=== PATIENT | male | born 1960 | race Caucasian/White ===

== ENCOUNTER 2025-02-11 19:04 | Emergency (ER) | payer OTHER, SELFPAY ==
--- OUTSIDE RECORDS SUMMARY | 2025-01-04 13:00 | XMS_ITS | Encounter Summary ---
Author Organization [facility], and Affiliates Address [address] [place] [address] Care Team Providers Care Railroad Track Inspector Name Role Phone Leo Jama MD Primary Care Provider [phone] Reason for Visit * Reason Comments Thyroid Problem Patient is referred to ENT by Stevan Roberson MD for hyperparathyroidism, hypercalcemia, and osteopenia. Patient had imaging in /January 2025. * Consultation (Routine) - Closed Specialty Diagnoses / Procedures Referred By Farshad cervantes Referred To Contact ENT-Otolaryngology Diagnoses Hyperparathyroidism Hypercalcemia Osteopenia, unspecified location Stevan Roberson MD [address] [id number] Phone: tel: fax: Noelle Gutierrez MD [address] [place] [phone] Phone: tel: fax: Referral ID Status Reason Start Date Expiration Date V isits Requested Visits Authorized [id number] Closed Specialty Services Required 12/19/2024 06/20/2025 1 1 Encounter Details Date Type Department Care Team (Latest Contact Info) Description 01/04/2025 1:00 PM CDT Office Visit [facility] [address] [place] [phone] Noelle Gutierrez MD [address] [place] [id number] Primary hyperparathyroidism (Primary Dx); Hypercalcemia; Osteopenia, unspecified location; History of kidney stones Social History Tobacco Use Types Packs/Day Years Used Date Smoking Tobacco: Former Cigarettes 0 12/01/2022 - 02/19/1976 Passive Smoke Exposure: Current Smokeless Tobacco: Never Alcohol Use Standard Drinks/Week Comments Not Currently 1.7 (1 standard drink = 0.6 oz p ure alcohol) [facility] Utilities Answer Date Recorded In the past 12 months has e [employer], oil, or water [employer] threatened to shut off services in your home? No 03/01/2024 Social Connection and Isolat ion Panel [NHANES] Answer Date Recorded In a typical week, how many times do you talk on the phone with family, friends, or neighbors? More than three times a week 03/01/2024 How often do you get togethe r with friends or relatives? Once a week 03/01/2024 How often do you attend chur ch or episcopal services? Never 03/01/2024 Do you belong to any clubs o r organizations such as scientology groups, unions, fraternal or athletic groups, or school groups? No 03/01/2024 How often do you attend meet ings of the clubs or organizations you belong to? Never 03/01/2024 Are you , , di vorced, , never , or living with a partner? 03/01/2024 Overall Financial Resource Strain (CARDIA) Answe r Date Recorded How hard is it for you to pa y for the very basics like food, housing, medical care, and heating? Somewhat hard 03/01/2024 [facility] [employer] of Occupat ional Health - Occupational Stress Questionnaire Answer Date Recorded Do you feel stress - tense, restless, nervous, or anxious, or unable to sleep at night because your mind is troubled all the time - these days? Not at all 03/01/2024 Exercise Vital Sign Answer Date Recorde d On average, how many days pe r week do you engage in moderate to strenuous exercise (like a brisk walk)? 3 days 03/01/2024 On average, how many minutes do you engage in exercise at this level? 30 min 03/01/2024 Hunger Vital Sign Answer Date Recorded Within the past 12 months, y ou worried that your food would run out before you got the money to buy more. Never true 03/01/20 24 Within the past 12 months, t he food you bought just didn't last and you didn't have money to get more. Never true 03/01/2024 PRAPARE - Transportation Answer Date Re corded In the past 12 months, has l ack of transportation kept you from medical appointments or from getting medications? No 02/05 In the past 12 months, has l ack of transportation kept you from meetings, work, or from getting things needed for daily living? No 03/01/2024 Housing Stability Vital Sign Answer Nick e Recorded In the last 12 months, was t here a time when you were not able to pay the mortgage or rent on time? No 03/01/2024 Number of Times Moved in the Last Year Not on fi le 03/01/2024 At any time in the past 12 m [facility], were you homeless or living in a penitentiary (including now)? No 03/01/2024 Alcohol Use Answer Date Recorded Q1: How often do you have a drink containing alc ohol? 2-4 times a month 03/01/2024 Q2: How many drinks containi ng alcohol do you have on a typical day when you are drinking? 1 or 2 03/01/2024 Q3: How often do you have si x or more drinks on one occasion? 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 Surgery is outpatient, meaning you come and go home the same day. Surgery typically takes 1.5 hours. Sometimes, it can be longer due to lab draw wait time. [place] Ramsey is scheduled for Parathyroid surgery on January 30 at [facility] Our office will call you the day before surgery to let you know what time to arrive the following day for your procedure. You may also call our office at [phone] to obtain this information if you have not heard from us by 11:30am. Please register at: [facility], [facility] [place], Main Entrance. Cannon Pinion Adjuster serviceis reserved for those patients and/or visitors with physical disabilities. If you and your visitor do not have any physical disabilities, please park your car in the [facility] parking lot and check in at our Lobby Flower Grader. Special instructions: Preparing for Your Surgery: 7 days before Surgery Stop any ibuprofen (Motrin??, Advil??), naproxen (Aleve??), or anti-inflammatory medications you are taking. It is OK to take acetaminophen (Tylenol??) Stop any herbal, vitamin, or supplement products you are taking. Continue all other prescription medications unless directed otherwise. Arrange for someone to drive you home. If you go home the day of surgery, you must have someone remain with you for 24 hours. It is important that your ride is a family member or friend. We are not able to discharge you with public transportation, unless it is approved medical transport. roller shop supervisor your special cleansing soap chlorhexidine gluconate (Hibiclens??) from your surgeon's office, the Surgery Prepare Team, a [facility], or a local pharmacy. You will not be able to wear any jewelry (including wedding rings) the day of surgery. Rings will be cut off if unable to be removed. You may need to visit a jeweler prior to surgery. 2 days before surgery Stop shaving around the surgical area. Facial shaving is allowed unless you are having head or necksurgery. Contact your surgeon???s office if you become ill with an infection, fever, chest congestion, or have a cut, scab, scratch or bug bite near your surgical area. Wash a set of sheets and pajamas for the evening before surgery. Evening before surgery Cleanse with the special chlorhexidine gluconate (Hibiclens??) soap, given to you. Follow the: Preparing your Skin Before Surgery instruction sheet. Wear clean pajamas and sleep in clean sheets after your shower. FASTING INSTRUCTIONS You may have solid foods until 8 hours before surgery. You may have clear liquids until 3 hours before surgery. Clear liquids include water, soda, Jell-O, popsicles, broth, black coffee or tea (No cream or milk), clear sodas or sports drinks, and juices without pulp (apple, cranberry & grape OK). Morning of surgery Cleanse with the special chlorhexidine gluconate (Hibiclens??) soap, given to you. Follow the: Preparing your Skin Before Surgery instruction sheet. Wear comfortable clothing. If you have an implantable device, please bring any remotes, or equipment to adjust your device. Medications: The Surgery Prepare Team will address your medications with you. They will also informyou of any preoperative labwork or diagnostic testing (EKG) needed prior to surgery, and assist youwith setting that up. We recommend NO Alcohol 5 to 7 days before surgery. Alcohol consumption may increase the risk of bleeding. We will contact your insurance company prior to your surgery to obtain pre- certification/prior authorization. If you have questions about your benefits, please contact your insurance company directly. PREPARING YOUR SKIN BEFORE SURGERY USING CHLORHEXIDINE SOLUTION Preparing or ???prepping?? skin before surgery can reduce the risk of infection at the surgery site. A special soap is used called chlorhexidine gluconate. You will need two 4 oz. bottles of this soap for showering. NOTE: These instructions are based on two 4 oz. bottles. If you have one 8 oz. bottle, use 1/2 of the bottle for each shower. Please follow the steps below that outline the process: Do not shave or remove body hair two days prior to surgery. Facial shaving is permitted. If you arehaving head or neck surgery, please ask your doctor. A total of two showers should be performed prior to surgery. First shower, the night before surgery (use one 4 oz. bottle of soap). Second shower, the day of surgery before coming to the hospital (use one 4 oz. bottle of soap). Stop using the product if a skin reaction occurs (rash,excessive itching, hives, redness, etc.). Wash your whole body with antibacterial soap during a shower instead. Leave the soap on your skin for 1 minute. Rinse and repeat. Dry yourself with a clean towel. Showering instructions: 1. Wet your entire body, including hair, with warm water. 2. Wash your hair with your own shampoo and rinse. 3. Wash your face and genital/rectal area with your own soap and rinse. 4. Apply 1/2 of the bottle (2 oz.) of the chlorhexidine soap and lather your body starting from your jaw line down. Do not put the soap on the face (eyes, ears, nose, or mouth) or genital area. Wait 1 minute before rinsing. 5. Repeat step 4 using the other 1/2 of the bottle (2 oz.). 6. Dry hair and body with a clean towel. After the shower instructions: After your evening shower, sleep in clean, freshly washed pajamas and sheets. After your morning shower, dress in freshly washed, loose-fitting clothes. Do not wear jewelry. Do not apply any lotions, powders, deodorant, makeup, nail greenlandic, hair products, or perfumes/colognes. What To Expect After Parathyroidectomy Surgery The following general guidelines have been provided to review before your surgery. Please keep in mind that not each surgical experience will be the same for everyone. Plan for same day discharge, unless the surgery is extensive and takes a bit to locate the affectedparathyroid gland. If surgery is more extensive, you may possibly have a one night stay in the hospital with a small drain placed in your neck. The drain would be removed the next day, and then you would be discharged. INCISION & WOUND HEALING: Your surgeon will indicate if they want you to put any antibiotic ointment over the incision. Your incision may be raised at first but will flatten out and fade over time. Protect your incision from injury for one month following surgery. Consider using Mederma on the incision after two (2) weeks of healing. For best cosmetic result, protect the incision from the sun for one (1) year following surgery by using sunscreen SPF 30 or greater. BATHING: If you have a drain in, no showering until after the drain has been removed. If no drain was put in, you can shower 24 hours after surgery. PRESCRIBED MEDICATIONS: After discharge, you may be sent home on calcium supplements and medication for pain. You will also be prescribed narcotic pain medication for the first few days after surgery. After that, patients are able to transition to Tylenol/Ibuprofen. As a reminder, on-call ENT provider cannot refill prescription pain medications over the weekend. SYMTPOMS TO EXPECT AFTER SURGERY: Stiff/sore neck Headache (particularly right after surgery) Sore, scratchy throat Hoarseness. This can last for up to a week or sometimes longer. Fatigue RECOVERY RESTRICTIONS: While you are healing, avoid any strenuous activity. No lifting over 10 pounds, no strenuous activity, no biking, but you may walk and no bending until seen at the one-week post-op visit. Please ask your doctor at your one-week visit when he/she feels you may return back to work/daily activities. TIME OFF: 10 days unless otherwise specified by your surgeon. WHEN TO CALL OUR OFFICE: Temperature over 101 degrees If your incision becomes red, swollen, hot to the touch, or starts to drain You have any new rashes at the incision site Tingling or cramping in your hands, feet, lips or face. These could be a sign of low calcium. Please contact us immediately if this happens. If your incision opens/tears If you notice your incision/area around your incision is becoming rapidly swollen and/or is turninga blue/purple color An ENT physician is on-call 24 hours a day. If you have any questions or concerns at any point in your recovery, please call our clinic at [phone]. We are staffed Wednesday through Wednesday, 8:00am-4:30pm. documented in this encounter Progress Notes * Noelle Gutierrez MD - 01/04/2025 1:00 PM CDT Chief Complaint: Hypercalcemia, hyperparathyroidism Subjective: South Ramsey is a 64 year old male who is seen for consultation at the request of Stevan Roberson MD. South is a 64 year old male who I was asked to see for hyperparathyroidism and hypercalcemia. He is here today with his . He was initially noted to have high calcium in February 2024. Bone density screening completed in October 2024 revealed osteopenia. He has broken multiple bones from falls in the past. He has had three kidney stone in the past,years ago. He denies voice concerns, but his throat has been dry and a bit raspy. No significant voice discomfort. No family history of parathyroid disease or adenoma. No history of surgery on the neck. He has been more fatigued with brain fog thannormal. He has a history of atrial fibrillation and has been cardioverted 5 times. He is not currently in atrial fibrillation. No history of stroke or TIA, currently on Eliquis. He reports that he quit smoking about 48 years ago. His smoking use included cigarettes. He startedsmoking about 2 years ago. He has been exposed to tobacco smoke. He has never used smokeless tobacco. He reports that he does not currently use alcohol after a past usage of about 1.7 standard drinksof alcohol per week. He reports that he does not use drugs. The patient's ROS, PMH, PSH, family history, medications and allergies are reviewed and updated as appropriate. Objective: Exam: Patient is alert and oriented. Face is symmetric, nontender on palpation. Voice is good. Patient is in no acute distress. Extraocular muscles intact. Skin of face and neck is healthy. EARS: External ears and ear canals clear, tympanic membranes mobile without erythema. Hearing grossly normal. NOSE: Mild rightward septal deviation; turbinates nonhypertrophied. No rhinorrhea, crusting, bleeding or purulence. External nares without deformity. MOUTH: Good dentition; gums intact; no trismus. Moist mucosa.. Tongue and palate mobile and symmetric; uvula midline. NECK: Supple without masses; salivary glands and thyroid gland nonenlarged. No lymphadenopathy. No tenderness. Muscles within normal limits and good range of motion. RESPIRATORY: Symmetric chest rise. Breathing comfortably on room air without stridor. Data: Labs: 11/02/24 labs were as follows PTH- 71.6 Ionized calcium- 1.48 Serum calcium- 11.1 Radiology: CT 4D Neck-Parathyroid 12/12/24 was personally reviewed. IMPRESSION: 1. Solitary highly suspicious candidate nodule posterior to the left thyroid lobe measuring up to 10 mm. This is probably a parathyroid adenoma. US Thyroid 11/09/24 IMPRESSION: 1. Bilateral subcentimeter TR 3 and TR 4 nodules do not meet criteria for follow-up or biopsy. Audiogram: Not obtained. Consulting provider's notes are reviewed. Assessment & Plan: 1. Primary hyperparathyroidism 2. Hypercalcemia 3. Osteopenia, unspecified location 4. History of kidney stones Today I discussed with South and his that he has evidence of primary hyperparathyroidism withassociated symptoms as well as osteopenia likely secondary to a parathyroid adenoma. We discussed the option of consideration of surgery for removal of the adenomatous parathyroid gland. Based on his4D CT scan of the neck, this does appear to localize to the left side. We discussed all risks, benefits, and alternatives of minimally invasive parathyroidectomy with possible need for 4 gland exploration. We discussed the risks of scarring, bleeding, injury to the recurrent or superior laryngeal nerve causing voice issues, failure to resolve his hypercalcemia. We discussed that this would likelybe an outpatient surgery, may require overnight stay with a drain placement if 4 gland exploration is needed. We did discuss that he would need to be off his Eliquis perioperatively which does slightly increase his risk of stroke, but certainly remains low given he is not currently in atrial fibrill ation and has never had a stroke in the past. He wishes to pursue surgery, we will work to schedulethis in the near future. A copy of this note is forwarded to the consulting provider. Clinic note was made using [employer] dictation software. There may be inadvertent wording errors that may have escaped editing. If you have questions or need some clarification, please do not hesitate to call our clinic. Documenting and scribing by Jordyn Louis RN on behalf of Noelle Gutierrez MD. Reviewed and approved by Noelle Gutierrez MD. documented in this encounter Plan of Treatment Upcoming Encounters Date Type Department Care Team (Late st Contact Info) Description 03/01/2025 9:50 AM CDT Lab/Non-Imaging [facility] [address] [place] [id number] 03/02/2025 10:30 AM CDT Nurse Visit [facility] [place] [id number] 03/02/2025 11:00 AM CDT Office Visit [facility] [address] [place] [address] Leo Jama MD [address] [place] [address] 03/14/2025 9:10 AM CDT Lab/Non-Imaging [facility] [address] [place] [address] 03/21/2025 10:00 AM CDT Office Visit [facility] Endocrinology [address] [place] [id number] Stevan Roberson MD [address] [place] [address] Scheduled Orders Name Type Priority Associated Diagnoses Orde r Schedule EXPLORE PARATHYROID GLANDS Procedures Routine Primary hyperparathyroidism Hypercalcemia Expected: 01/04/2025, Expires: 07/07/2025 documented as of this encounter Goals Goal Patient Goal Type Associated Problems Recent Progress Patient-Stated? Author Blood Pressure < 140/90 Blood Pressure 124/66(2024 2:28 PM CDT) No Leo Jama MD hdl > 40 Result Component 54(03/01/2024 9:54 AM CDT) No Leo Jama MD documented as of this encounter Visit Diagnoses Diagnosis Primary hyperparathyroidism- Primary Hypercalcemia Osteopenia, unspecified location History of kidney stones Personal history of urinary calculi documented in this encounter Additional Health Concerns Assessment Noted Time PHQ-9 Depression Total Score: 0 03/22/20 11:01 AM CDT A fall risk assessment has been complete d for the patient 04/04/2024 7:08 AM CDT documented as of this encounter Care Teams Railroad Track Inspector Relationship Specialty Start Date End Date Leo Jama MD [address] [place] [address] PCP - General Internal Medicine 03/01/24 documented as of this encounter
--- OUTSIDE RECORDS SUMMARY | 2025-01-08 11:10 | XMS_ITS | Encounter Summary ---
Author Organization [facility] Address [address] [place] [address] Care Team Providers Care Furniture Dipper Name Role Phone Leo Jama MD Primary Care Provider [phone] Encounter Details Date Type Department Care Team (Late st Contact Info) Description 01/08/2025 11:10 AM CDT Lab/Non-Imagemigdio [facility] [address] [place] [address] Hyperparathyroidism; Hypercalcemia; Vitamin D deficiency Social History Tobacco Use Types Packs/Day Years Used Date Smoking Tobacco: Former Cigarettes 0 12/01/2022 - 02/19/1976 Passive Smoke Exposure: Current Smokeless Tobacco: Never Alcohol Use Standard Drinks/Week Comments Not Currently 1.7 (1 standard drink = 0.6 oz p ure alcohol) [facility] Utilities Answer Date Recorded In the past 12 months has [employer], gas, oil, or water [employer] threatened to shut off services in your [...] 03/01/2024 How often do you attend chur or congregation services? Never 03/01/2024 Do you belong to any clubs o r organizations such as protestant groups, unions, fraternal or athletic groups, or [...] medical care, and heating? Somewhat hard 03/01/2024 [facility] Occupational Stress Questionnaire Answer [...] any time in the past 12 m [facility], were you homeless or living in a snf (including now)? 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 Gender Identity Not on file Sexual Orientation Not on file documented as of this encounter Plan of Treatment Upcoming Encounters Date Type Department Care Team (Late st Contact Info) Description 03/01/2025 9:50 AM CDT Lab/Non-Imaging [facility] [address] [place] [address] 03/02/2025 10:30 AM CDT Nurse Visit [facility] [address] [place] [address] 03/02/2025 11:00 AM CDT Office Visit [facility] [address] [place] [address] Leo Jama MD [address] [address] 03/14/2025 9:10 AM CDT Lab/Non-Imaging [facility] [address] [place] [address] 03/21/2025 10:00 AM CDT Office Visit [facility] [address] [place] [phone] Stevan Roberson MD [address] [place] [address] [place] [phone] documented as of this encounter Goals Goal Patient Goal Type Associated Problems Recent Progress Patient-Stated? Author Blood Pressure < 140/90 Blood Pressure 124/66(2024 2:28 PM CDT) No Leo Jama MD hdl > 40 Result Component 54(03/01/2024 9:54 AM CDT) No Leo Jama MD documented as of this encounter Procedures Procedure Name Priority Date/Time Associated Diagnosis Comments VITAMIN D 25 HYDROXY D2/D3 Routine 01/08/2025 9:52 AM CDT Hyperparathyroidis m Hypercalcemia Vitamin D deficiency PANEL, COMPREHENSIVE METABOLIC Routine 01/08/2025 9:52 AM CDT Hyperparathyroidis m Hypercalcemia PTH INTACT Routine 01/08/2025 9:52 AM CDT Hyperparathyroidis m Hypercalcemia documented in this encounter Results * VITAMIN D 25 HYDROXY TOTAL (BELLIN ONLY) (01/08/2025 9:52 AM CDT) 25-HYDROXY D TOTAL 40.2 30.0 - 100.0 ng/ml 01/08/2025 3:46 PM CDT [facility] Blood Venipuncture / Unknown 01/08/2025 9:52 AM CDT 01/08/2025 9:52 AM CDT Narrative [facility] - 01/08/2025 3:46 PM CDT The Clinical Guidelines Subcommittee of the Endocrine Society Task Force established the guidelines below for recommended serum 25(OH) vitamin D levels Vitamin D Status: Deficient < 20 (ng/mL) Insufficient 20 to < 30(ng/mL) Sufficient 30 - 100(ng/mL) Upper Safety Limit >100(ng/mL) Samples should not be taken from patients receiving therapy with high biotin doses until at least 8 hours following the last biotin administration. High biotin levels in patient samples may falsely increase or decrease the measured value. us Stevan Roberson MD LAB BLOOD ORDERABLES Final Res ult [facility] [address] [address] [place] [address] * (ABNORMAL) PTH INTACT (01/08/2025 9:52 AM CDT) PTH INTACT 71.0(H) 15.0 - 65.0 pg/mL 01/08/2025 3:46 PM T [facility] Blood Venipuncture / Unknown 01/08/2025 9:52 AM CDT 01/08/2025 9:52 AM T [facility] - 01/08/2025 3:46 PM CDT Samples should not be taken from patients receiving therapy with high biotin doses until at least 8 hours following the last biotin administration. High biotin levels in patient samples may falsely increase or decrease the measured value. Patient heterophile antibodies may interfere with immunoassays, e.g. HAMA. us Stevan Roberson MD LAB BLOOD ORDERABLES Final Res ult [facility] [address] [address] * (ABNORMAL) PANEL, COMPREHENSIVE METABOLIC (01/08/2025 9:52 AM T) Pathologist [facility] GLUCOSE 164(H) 70 - 100 mg/dL 01/08/2025 10:58 AM T [facility] UREA NITROGEN 14 9 - 23 mg/dL 01/08/2025 10:58 AM [facility] CREATININE 1.09 0.73 - 1.18 mg/dL 01/08/2025 10:58 AM [facility] eGFR 76 >=60 mL/Min/1. 73 sqm 01/08/2025 10:58 AM [facility] Comment:Calculation based on the Chronic Kidney Disease Epidemiology Collaboration (CKD-EPI) equation refit without adjustment for race. SODIUM 140 136 - 145 mmol/L (mEq/L) 01/08/2025 10:58 AM T [facility] POTASSIUM 5.1 3.5 - 5.1 mmol/L (mEq/L) 01/08/2025 10:58 AM T [facility] CHLORIDE 113(H) 101 - 112 mmol/L (mEq/L) 01/08/2025 10:58 AM T [facility] TOTAL CO2 26 20 - 31 mmol/L (mEq/L) 01/08/2025 10:58 AM T [facility] CALCIUM 11.6(H) 8.9 - 10.7 mg/dL 01/08/2025 10:58 AM T [facility] Comment:Effective 10-09-24, p lease note reference range changes. TOTAL PROTEIN 6.7 5.7 - 8.2 g/dL 01/08/2025 10:58 AM T [facility] ALBUMIN 4.4 3.9 - 5.1 g/dL 01/08/2025 10:58 AM [facility] Comment:Effective 10-09-24, p lease note reference range changes. BILIRUBIN, TOTAL 0.6 0.2 - 1.1 mg/dL 01/08/2025 10:58 AM T [facility] Comment:Effective 10-09-24, p lease note reference range changes. SGOT/AST 36 <39 U/L 01/08/2025 10:58 AM T [facility] Comment:Effective 10-09-24, p lease note reference range changes. SGPT/ALT 61(H) 10 - 52 U/L 01/08/2025 10:58 AM T [facility] Comment:Effective 10-09-24, p lease note reference range changes. ALK PHOSPHATASE 77 43 - 131 U/L 01/08/2025 10:58 AM T [facility] Comment:Effective 10-09-24, p lease note reference range changes. Blood Venipuncture / Unknown 01/08/2025 9:52 AM CDT 01/08/2025 9:52 AM CDT Stevan Roberson MD LAB BLOOD ORDERABLES Final Res ult [facility] [address] [place] [address] documented in this encounter Visit Diagnoses Diagnosis Hyperparathyroidism Hyperparathyroidism, unspecified Hypercalcemia Vitamin D deficiency Unspecified vitamin D deficiency documented in this encounter Additional Health Concerns Assessment Noted Time PHQ-9 Depression Total Score: 0 03/22/20 11:01 AM CDT A fall risk assessment has been complete d for the patient 04/04/2024 7:08 AM CDT documented as of this encounter Care Teams Furniture Dipper Relationship Specialty Start Date End Date Leo Jama MD [address] [place] [address] PCP - General Internal Medicine 03/01/24 documented as of this encounter
--- OUTSIDE RECORDS SUMMARY | 2025-01-11 10:30 | XMS_ITS | Encounter Summary ---
Author Organization [facility], and Affiliates Address [address] [place] [address] Care Team Providers Care Bartender Helper Name Role Phone Leo Jama MD Primary Care Provider [phone] Reason for Visit * Reason Comments Follow Up Encounter Details Date Type Department Care Team (Late st Contact Info) Description 01/11/2025 10:30 AM CDT Office Visit [facility] [address] [place] [address] Anna Dewitt MD [address] [address] Atrial fibrillation, persistent (*) (Primary Dx); Coronary artery disease due to lipid rich plaque Social History Tobacco Use Types Packs/Day Years Used Date Smoking Tobacco: Former Cigarettes 0 12/01/2022 - 02/19/1976 Passive Smoke Exposure: Current Smokeless Tobacco: Never Tobacco Cessation:Counseling Given: No Alcohol Use Standard Drinks/Week Comments Not Currently 1.7 (1 standard drink = 0.6 oz p ure alcohol) [facility] Utilities Answer Date Recorded In the past 12 months has [employer], gas, oil, or water company threatened to shut off services in your [...] often do you attend chur ch or temple services? Never 03/01/2024 Do you belong to any clubs o r organizations such as orthodoxy groups, unions, fraternal or athletic groups, or [...] medical care, and heating? Somewhat hard 03/01/2024 [facility] [place] of Occupat ional Health - Occupational Stress [...] any time in the past 12 m [facility], were you homeless or living in a skilled nursing (including now)? 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 Check BP about 1-2 hours after taking your medications. Sit for 10 minutes beforetaking it. Call in 1-2 weeks with an update. [phone]. Ask to speak to Dr. Dewitt's nurse. documented in this encounter Progress Notes * Anna Dewitt MD - 01/11/2025 10:30 AM CDT Images from the original note were not included. [facility] PATIENT NOTE NAME: South Ramsey : 1960 DATE OF VISIT: 01/11/2025 CLINIC LOCATION: [facility] HISTORY: South Ramsey is a 64 year old male with the following medical history: CARDIOVASCULAR HISTORY: OTHER RELEVANT HISTORY / RISK FACTORS: Atrial flutter/atrial fibrillation: Status post ablation April 04, 2024. Amiodarone stopped. Coronary artery disease. Myocardial infarction 2017 with PCI to right coronary artery. Nonischemic cardiomyopathy: Ejection fraction 40 to 45%, thought to be due to tachycardia. Esophageal dysphagia Type 2 diabetes Hyperparathyroidism. Patient notes that he is doing quite well. He denies any exertional chest pain or shortness of breath. No significant lower extremity edema. No bleeding. No palpitations. CURRENT MEDICATIONS: Current Outpatient Medications Medication Sig Dispense Refill apixaban (ELIQUIS) 5 mg oral tablet Take 1 tablet (5 mg total) by mouth twice daily. 60 tablet 11 atorvastatin (LIPITOR) 80 mg oral tablet Take 80 mg by mouth once daily. carvedilol (COREG) 6.25 mg oral tablet Take 1 tablet (6.25 mg total) by mouth twice daily. 180 tablet 3 ezetimibe (ZETIA) 10 mg oral tablet Take 1 tablet (10 mg total) by mouth once daily. 90 tablet 4 glipiZIDE, 24-hour, (GLUCOTROL XL) 10 mg oral tablet Take 2 tablets (20 mg total) by mouth daily with breakfast. Indications: Type 2 Diabetes 180 tablet 4 losartan (COZAAR) 100 mg oral tablet Take 1 tablet (100 mg total) by mouth once daily. Indications:High Blood Pressure Disorder 90 tablet 4 Multiple Vitamin (MULTI-VITAMIN) oral tablet Take 1 tablet by mouth once daily. potassium citrate, controlled-release, (UROCIT-K 10) 10 mEq (1,080 mg) oral TBCR tablet Take 1 tablet (10 mEq total) by mouth 2 (two) times a day. Indications: Low Amount of Potassium in the Blood 180 tablet 4 semaglutide, 1 MG/DOSE, (OZEMPIC) 4 MG/3ML subcutaneous pen-injector Inject 1 mg into the skin Onceevery week. Indications: Type 2 Diabetes 9 mL 4 traZODone (DESYREL) 150 mg oral tablet Take 1 tablet (150 mg total) by mouth every night at bedtime. 90 tablet 1 No current facility-administered medications for this visit. ALLERGIES: Review of patient's allergies indicates: Allergen Reactions Penicillins Unknown PHYSICAL EXAM: Visit Vitals BP 152/86 (BP Site: R ARM, Patient Position: Sitting, Cuff Size: Regular Adult) Pulse 84 Ht 5' 10 (1.778 m) Wt 186 lb (84.4 kg) BMI 26.69 kg/m?? General: NAD Cardiac: Rhythm: Regular , Rate: Normal , Murmur: None Chest / Lungs: Clear Vascular: jugular distention: None, carotid bruit: None, pulses: Radial pulses 2+ bilat Extremities: Leg edema: None DATA: [the following labs, documents and imaging tests were reviewed] DOCUMENTS: Prior cardiology notes. IMAGING/TESTING Echo 07/25/24: This is a limited examination. The patient was in normal sinus rhythm during the study. There is no comparison study available. Ejection Fraction = 40-45%. There is akinesis of the mid to basal inferior wall and moderate to severe hypokinesis of the lateral wall. Mild left atrial enlargemen Coronary angiogram August 2023: No obstructive lesions. LABS Laboratory data November 01/2024: Potassium 4.8, creatinine 1. Lipid panel from March 01, 2024: LDL 85, HDL 54. INDEPENDENT INTERPRETATION OF TESTS: [the following tests were independently interpreted] None Any discussion of management / test interpretation with another physician / health professional: Not applicable Other people who helped provide history for this visit (family, caregiver, other): None ASSESSMENT/PLAN: 1. Atrial flutter (*) Status post PVI and posterior wall isolation with pulsed field ablation as well as RF ablation of the cavotricuspid isthmus April 04, 2024. Amiodarone stopped several months later. Regular on exam today. - Continues on anticoagulation. 2. Chronic Systolic Heart Failure Thought to be due to combination of tachycardia mediated cardiomyopathy and prior MO. Ejection fraction improved to 40 to 45% on most recent echocardiogram from 07/2024. Has been on low-dose carvedilol and goal dose of losartan. He is [place] Heart Association class Iwithout the use of loop diuretics. Given this, no further up titration of medications is being pursued. 3. Coronary artery disease No symptoms to suggest unstable disease. Patient agreeable to intensifying statin therapy. - Stop atorvastatin and start rosuvastatin 40 mg nightly. Check lipid panel in 3 months time. 4. Hypertension Elevated today. Patient agreeable to get blood pressure cuff and start monitoring blood pressures at home. He will call in 1 to 2 weeks time with an update. If needed we could add spironolactone and stop his potassium. Cardiology clinic follow up plan: 1 year with [facility] Electronically signed by Anna Dewitt MD 01/11/2025 10:04 AM CDT documented in this encounter Plan of Treatment Upcoming Encounters Date Type Department Care Team (Late st Contact Info) Description 03/01/2025 9:50 AM CDT Lab/Non-Imaging [facility] [address] [place] [address] 03/02/2025 10:30 AM CDT Nurse Visit [facility] [address] [place] [address] 03/02/2025 11:00 AM CDT Office Visit [facility] [address] [place] [address] Leo Jama MD [address] [facility] [place] [place] [address] 03/14/2025 9:10 AM CDT Lab/Non-Imaging [facility] [address] [place] [address] 03/21/2025 10:00 AM CDT Office Visit [facility] Endocr[facility]ology [address] [place] [phone] Stevan Roberson MD [address] [place] [address] [place] [phone] Scheduled Orders Name Type Priority Associated Diagnoses Orde r Schedule LIPID PANEL Lab Routine Coronary artery disease due to lipid rich plaque Expected: 04/12/2025, Expires: 07/10/2025 documented as of this encounter Goals Goal Patient Goal Type Associated Problems Recent Progress Patient-Stated? Author Blood Pressure < 140/90 Blood Pressure 124/66(2024 2:28 PM CDT) No Leo Jama MD hdl > 40 Result Component 54(03/01/2024 9:54 AM CDT) No Leo Jama MD documented as of this encounter Visit Diagnoses Diagnosis Atrial fibrillation, persistent (*)- Primary Coronary artery disease due to lipid rich plaque documented in this encounter Additional Health Concerns Assessment Noted Time PHQ-9 Depression Total Score: 0 03/22/20 11:01 AM CDT A fall risk assessment has been complete d for the patient 04/04/2024 7:08 AM CDT documented as of this encounter Care Teams Bartender Helper Relationship Specialty Start Date End Date Leo Jama MD [address] [address] PCP - General Internal Medicine 03/01/24 documented as of this encounter
--- OUTSIDE RECORDS SUMMARY | 2025-01-30 07:44 | XMS_ITS | Encounter Summary ---
Author Organization [facility], and Affiliates Address [address] [place] [address] Care Team Providers Care Chip Silo Tender Name Role Phone Leo Jama MD Primary Care Provider [phone] Reason for Visit * Auth/Cert - BLN (Routine) Specialty Diagnoses / Procedures Referred By Contac t Referred To Contact Diagnoses Primary hyperparathyroidism Hypercalcemia Primary hyperparathyroidism [E21.0] Hypercalcemia [E83.52] Procedures EXPLORE PARATHYROID GLANDS PARATHYROIDECTOMY / EXPLORATION OF PARATHYROID Referral ID Status Reason Start Date Expiration Date Visits Re quested Visits Authorized [id number] 10 10 Encounter Details Date Type Department Care Team (Latest Contact Info) Description 01/30/2025 7:44 AM CDT - 01/30/2025 3:09 PM CDT Hospital Encounter [facility] [address] [place] [address] Melody Gutierrez MD [address] [place] [id number] Post-operative pain (Primary Dx) Discharge Disposition: Disch to Home or Self Care Social History Tobacco Use Types Packs/Day Years Used Date Smoking Tobacco: Former Cigarettes 0 12/01/2022 - 02/19/1976 Passive Smoke Exposure: Never Smokeless Tobacco: Never Tobacco Cessation:Counseling Given: Not Answered Alcohol Use Standard Drinks/Week Comments Not Currently 0 (1 standard drink = 0.6 oz pur e alcohol) [facility] Utilities Answer Date Recorded In the past 12 months has [employer], gas, oil, or water company threatened to [...] any clubs o r organizations such as restorationist groups, unions, fraternal or athletic groups, or [...] medical care, and heating? Somewhat hard 03/01/2024 [facility] - Occupational Stress [...] any time in the past 12 m [facility], were you homeless or living in a senior living (including now)? 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 Gender Identity Not on file Sexual Orientation Not on file documented as of this encounter Last Filed Vital Signs Vital Sign Reading Time Taken Comments Blood Pressure 124/66 01/30/2025 2:28 PM CDT Pulse 78 01/30/2025 2:28 PM CDT Temperature 36.8 C (98.2 F) 01/30/2025 2:28 PM CDT Respiratory Rate 16 01/30/2025 2:28 PM CDT Oxygen Saturation 96% 01/30/2025 2:28 PM CDT Inhaled Oxygen Concentration - - Weight 82.4 kg (181 lb 10.5 oz) 01/30/2025 8:43 AM CDT Height 177.8 cm (5' 10) 01/30/2025 8:43 AM CDT Body Mass Index 26.07 01/30/2025 8:43 AM CDT documented in this encounter Discharge Instructions * Patient Instructions* Mattie Farfan RN - 01/15/2025 4:43 PM CDT Images from the original note were not included. PRESURGICAL INSTRUCTIONS Dr. Melody Gutierrez NAME: South Ramsey : 1960 Medication Instructions 7 Days prior to your surgery: Continue to take your prescribed home medication until the morning of surgery. It is okay to take acetaminophen (Tylenol??) if needed. STOP any ibuprofen (Motrin??, Advil??), naproxen (Aleve??), meloxicam (Mobic??), diclofenac (Voltaren??) or anti-inflammatory medications you are taking. Stop any herbal, vitamin, or supplement products you are taking. Take your last dose of Semaglutide (Ozempic, Wegovy). Your last dose should be taken on or before 01/15/25 Regarding your prescription blood thinner or daily aspirin: Take your last dose of Apixaban (Eliquis) 3 days before your procedure. Your last dose will be on 01/26/25. Day of Surgery: Take the following medications: Carvedilol(Coreg), Rosuvastatin(Crestor), Potassium citrate controlled-release(Urocit-K 10) DO NOT take the following medications: Ezetimibe(Zetia), Losartan(Cozaar) Is the patient diabetic? The morning dose of your diabetic medication Glucotrol (glipizide) should be held the morning of your Surgery. Prior to Surgery Please click this link to see what to do 7 days before surgery Arrange for responsible person to drive you home. If you go home the day of surgery, you must have a responsible person transport and remain with youfor 24 hours. If you do not have a responsible person to drive you home or that can remain with you for 24 hours after surgery, you risk surgery being canceled. We are not able to discharge you with public transportation, unless it is approved medical transport Plan for no jewelry-including wedding rings. If unable to be removed, rings will be cut off day of surgery. You may need to visit a jeweler prior to surgery if you can't remove your rings. If you use Cannabis, THC, or Marijuana products (including a Vape) Stop using 2 weeks prior to surgery supervisor finishing room your special cleansing soap chlorhexidine gluconate (Hibiclens??) from your surgeon's office, the Surgery Prepare Team, a [facility], or a local pharmacy. 2 Days Before Surgery Contact your surgeon's office MELODY GUTIERREZ M.D. - [phone] if you become illwith an infection, fever 100.4 degrees, chest congestion or gastrointestinal symptoms. Stop shaving around the surgical area. Facial shaving is allowed unless you are having head or neck surgery. Wash a set of sheets and pajamas to use the evening before surgery. Your skin must be clear of open areas, rashes, cuts, scrapes, or infection prior to surgery. If any skin concerns prior to surgery, please call your surgeon's office. If you arrive in Preop with open areas, your surgery could be canceled. 1 Day Before Surgery Cleanse with the special chlorhexidine gluconate (Hibiclens??) soap given to you. Follow the: Preparing your Skin Before Surgery instruction sheet. Wear freshly laundered pajamas and sleep in freshly laundered sheets after your shower. To help prevent infection: Do not have pets sleep in or on your bed once you have washed with the surgical soap. Do not use any lotion, powder, deodorant, makeup, nail turkish (including gel, acrylic, etc.), hair products (including gel, hairspray, mousse), or perfumes/colognes. Remove any eyelash and hair extensions, toupee, and weaves. Do not drink alcohol and/or use any form of tobacco, this includes e-cigarettes and vapes Receive your arrival time for surgery On the business day before (Wednesday if your surgery or procedure is on Wednesday), you will be called or texted about when to arrive and where to check in Arrival: We will contact you with your time of arrival 1 business day prior to your surgery date. [facility], [address] [place] [address], [facility]. Animal Caregiver service is reserved for those patients and/or visitors with physical disabilities. If you and your visitor do not have any physical disabilities, please park your car in the [facility] parking lot and check in at our Lobby Labor Contract Analyst. Day of Surgery Please click this link for what to do the day of surgery Cleanse with the special chlorhexidine gluconate (Hibiclens??) soap given to you. Follow the: Preparing your Skin Before Surgery instruction sheet. Do not use any lotion, powder, deodorant, makeup, nail turkish (including gel, acrylic, etc.), hair products (including gel, hairspray, mousse), or perfumes/colognes. Do not wear any jewelry. Wear comfortable, clean, loose fitting clothes Estelline your teeth and/or dentures. Do not swallow rinse water Do not wear contact lenses-wear glasses instead. Tie back or braid long hair with a NON-METAL hair tie. Medications: Take as Directed in Medication Instructions section Fasting Instructions FASTING INSTRUCTIONS: You may have solid foods until 8 hours before surgery. You may have clear liquids, until 3 hours before surgery. Clear liquids include water, soda, Jell-O, popsicles, broth, black coffee or tea (No cream or milk), or sports drinks, and juices without pulp (apple, cranberry and grape are okay). Things to bring to the hospital: Photo ID or taxi driver supervisor's license Insurance cards (health and prescription) Anyone picking up prescription pain medication is required to show a picture ID. Please do not bring fontanez, jewelry, or valuables. They will be given to your caregiver or locked in the [facility] safe. [facility] is not responsible for lost or missing items. Your Advanced directive or Living Will if you have available and not already on file at hospital. Detailed Home Medication List in case it is needed for verification (which includes inhalers and eye drops, lcvc-wuo-xpsiklf medications, and herbals and/or supplements). SSC: Please bring in your essential home medication in their original container/bottle (not vitamins or supplements). PREPARING YOUR SKIN BEFORE SURGERY USING CHLORHEXIDINE [...] apply any lotions, powders, deodorant, makeup, nail turkish, hair products, or perfumes/colognes. After Surgery At Home How to Control Pain: Cold therapy or Ice as needed. Rotate 15 minutes on, 15 minutes off Elevation of the surgical site to reduce swelling, which will reduce pain. Pain medications Follow your surgeon's instructions for prescribed a pain (opioid) medication. Once your pain is under control if there are any pills left, please properly dispose. If you are prescribed a pain (opioid) medication, do not drive while taking this medication. Pain medication can cause nausea and vomiting, eating with the medication can help alleviate this. Pain (opioid) medications can cause constipation-see below to prevent constipation. Drink plenty of fluids to keep your urine pale yellow. Ikzq-inh-zzogunl stool softeners or laxatives can help control constipation. How to Prevent Deep Vein Thrombosis (DVT)/Blood Clots: Signs of DVT: Calf pain, tenderness, or swelling in one or both of your legs Take short, frequent walks to help prevent a blood clot. (If your surgeon allows). If you are sent home with white MERLYN stockings Remove the stockings at bedtime - Do NOT keep the stockings on overnight. Wash with plain water-NO detergents or soaps. Hang them to air dry overnight. How to Prevent Nausea and/or Vomiting: Cough and deep breath after surgery every hour while you are awake. Take an ORS (oral rehydration solution) sold at pharmacies and stores. Drink clear fluids in small amounts. Water, Ice chips. Fruit juice that has water added (diluted fruit juice). Low-calorie sports drinks. Eat bland, fpxi-nn-nzkyxb foods in small amounts: Bananas, Applesauce, Rice, [place]/Crackers, Low-fat (lean) meats. Avoid drinking alcohol, sugary or caffeinated fluids. Energy drinks, sports drinks, and soda. How to Prevent Constipation: Eat high fiber food: such as beans, bran, whole grains, fresh fruit, and vegetables. Limit foods that are high in fat and processed sugars, such as fried or sweet foods. Drink enough clear fluids to keep your urine pale yellow. Avoid drinking alcohol, caffeine, and soda. These can make constipation worse. Activity: Start walking as soon as you can. Go to the restroom when you have the urge to go. Do not hold it in. Try drinking something hot to get bowel movement started. Medications-talk to your health care provider first for over the counter (stool softener, laxative,or fiber supplement) and/or prescription medicines. How to Prevent Infection: Focus on cleanliness to prevent infection. Wash your hands with soap and water for at least 20 seconds before and after changing your bandage or touching your incision. Do not soak your incision in Tubs, Hot tub, Jacuzzi, King, Pool, etc. until incision is completely healed over AND your surgeon says it is OK. Do not share bars of soap, washcloths, or towels with others. Leave stitches (sutures), skin glue, or adhesive strips in place. You may cut the edges of the adhesive strips when they start to curl up. The skin glue will flake off on its own-do NOT pick at it or remove it. When to Call Your Doctor: Increased redness or swelling Excessive pain that is not relieved by pain medication. Fever over 101?? F or chills for more than 24 hours Warmth, pus, or bad smell or increased bleeding from incision If you cannot urinate, you cannot completely empty your bladder, or are urinating in small amount Chest pain, chest congestion, or difficulty breathing If you feel you have an emergency and your surgeon or one of his associates cannot be reached go [facility] [place] or call 911 Thank you for choosing [facility] - or Wednesday through Wednesday, 8:00 a.m. - 5:00 p.m. (excluding holidays) * Attachments The following attachments cannot be sent through Care Everywhere. * Parathyroidectomy Care After (Citizen Of [place]) * General Anesthesia Adult Care After (Citizen Of [place]) documented in this encounter Medications at Time of Discharge apixaban (ELIQUIS) 5 mg oral tablet May resume on 02/01/25.. 01/30/2025 carvedilol (COREG) 6.25 mg oral tablet Take 1 tablet (6.25 mg total) by mouth twice daily. 180 tablet 3 08/18/2024 glipiZIDE, 24-hour, (GLUCOTROL XL) 10 mg oral tabletIndications:T ype 2 Diabetes Mellitus Take 2 tablets (20 mg total) by mouth daily with breakfast. Indications: Type 2 Diabetes 180 tablet 4 06/02/2024 losartan (COZAAR) 100 mg oral tabletIndications:H ypertension Take 1 tablet (100 mg total) by mouth once daily. Indications: High Blood Pressure Disorder 90 tablet 4 03/22/2024 Multiple Vitamin (MULTI-VITAMIN) oral tablet Take 1 tablet by mouth once daily. potassium citrate, controlled-release, (UROCIT-K 10) 10 mEq (1,080 mg) oral TBCR tabletIndications:H ypokalemia Take 1 tablet (10 mEq total) by mouth 2 (two) times a day. Indications: Low Amount of Potassium in the Blood 180 tablet 4 12/04/2024 rosuvastatin (CRESTOR) 40 mg oral tablet Take 1 tablet (40 mg total) by mouth every night at bedtime. 90 tablet 3 01/11/2025 01/12/20 26 ezetimibe (ZETIA) 10 mg oral tabletIndications:H yperlipidemia, unspecified hyperlipidemia type Take 1 tablet (10 mg total) by mouth once daily. 90 tablet 4 03/01/2024 02/08/20 25 semaglutide, 1 MG/DOSE, (OZEMPIC) 4 MG/3ML subcutaneous pen-injectorIndicat ions:Type 2 Diabetes Mellitus Inject 1 mg into the skin Once every week. Indications: Type 2 Diabetes 9 mL 4 12/04/2024 02/09/20 25 traZODone (DESYREL) 150 mg oral tablet Take 1 tablet (150 mg total) by mouth every night at bedtime. 90 tablet 1 10/31/2024 02/06/20 25 Calcium Carbonate Antacid (CALCIUM CARBONATE, CHEWABLE,) 500 mg oral CHEW tabletIndications:H ypoparathyroidism Take 1 tablet (500 mg total) by mouth twice daily for 7 days. Indications: Disorder of Low Parathyroid Hormone Levels 14 tablet 01/30/2025 02/07/20 25 HYDROcodone-acetami nophen (LORCET,LORTAB,NORC O) 5-325 mg oral tabletIndications:P ain Take 1 tablet by mouth every 6 hours as needed for pain. Indications: Pain 8 tablet 01/30/2025 02/02/20 25 documented as of this encounter H&P Notes * Tittman, Melody M, MD - 01/30/2025 8:22 AM CDT History and Physical Update No Changes - H&P was reviewed and the patient was examined. No changes have occurred in the patient's condition since the H&P was completed by myself as below. Anesthesia to perform heart and lung assessments. Patient cleared for consented surgery and anesthesia plan. Procedure(s), risk(s), benefit(s) and /or alternative(s) have been discussed with patient and/or responsible person and questions answered. Chief Complaint: Hypercalcemia, hyperparathyroidism Subjective: South Ramsey is a 64 year old male who is seen for consultation at the request of No ref. provider found. South is a 64 year old male [...] startedsmoking about 2 years ago. He has never been exposed to tobacco smoke. He has never used smokeless tobacco. He reports that he does not currently use alcohol. He reports that he does not use [...] of the adenomatous parathyroid gland. Based on his 4D CT scan of the neck, this does appear to localize to the left side. We discussed all risks, benefits, and alternatives of minimally invasive parathyroidectomy with possible need for 4 gland exploration. We discussed the risks of scarring, bleeding, injury to the recurrent or superior laryngeal nerve causing voice issues, failure to resolve his hypercalcemia. We discussed that this would likely be an outpatient surgery, may require overnight stay with a drain placement if 4 gland explorationis needed. We did discuss that he would need to be off his Eliquis perioperatively which does slightly increase his risk of stroke, but certainly remains low given he is not currently in atrial fibril lation and has never had a stroke in the past. He wishes to pursue surgery, we will work to schedule this in the near future. A copy of this note is forwarded to the consulting provider. Clinic note was made using Birchbox dictation software. There may be inadvertent wording errors that may have escaped editing. If you have questions or need some clarification, please do not hesitate to call our clinic. Documenting and scribing by Jordyn Louis RN on behalf of No name on file. Reviewed and approved by No name on file. documented in this encounter Procedure Notes * Melody Gutierrez MD - 01/30/2025 3:09 PM CDT [facility] [phone] [facility] [address] Loc: [phone] PARATHYROIDECTOMY PROCEDURE NOTE NAME: South Ramsey AGE: [age] year old, : 1960 INDICATIONS FOR SURGERY: South Ramsey is a 64 year year old male with a history of hypercalcemia secondary to primary hyperparathyroidism as well as osteopenia and nephrolithiasis. 4D-CT revealed a likelyleft sided parathyroid adenoma. Therefore, we discussed the option of proceeding to the operating room for minimally invasive parathyroidectomy with possible 4-gland exploration. We discussed all risks, benefits, and alternatives. Informed consent was obtained on the day of the procedure. PROCEDURE: Minimally invasive parathyroidectomy SURGEONS: Melody Gutierrez MD & Minh Ruiz MD SHIPYARD PAINTER HELPER: Geoff Matthews DNP ANESTHESIA: General endotracheal anesthesia COMPLICATIONS: None immediate BLOOD LOSS: Minimal LABS: Pre-op PTH 67.7, 15 minute post-excision 24.4, 25 minute post-excision 18.6 SPECIMENS: Left parathyroid gland for permanent pathology DESCRIPTION OF PROCEDURE: The patient was brought to the operating room and placed supine on the operating room table. General anesthesia was induced and a 7.0 NIMS endotracheal tube was placed, positioning confirmed with GlideScope. A shoulder roll was placed. An incision was planned approximately 1.5 fingerbreadths above the sternal notch in a natural skin crease. This was infiltrated with 1% lidocaine with 1:100,000 epinephrine. The patient was then prepped and draped in the standard fashion. A 15 blade was used to incise through the skin. Small subplatysmal flaps were raised superiorly andinferiorly. The median raphae was then identified and divided. The strap muscles were elevated off the left thyroid gland. We then looked in the location of the likely parathyroid adenoma that was identified on the scan, and the suspect parathyroid adenoma was easily identified and dissected free. The recurrent laryngeal nerve was never definitively identified. Intra-operative PTH levels suggested surgical cure, and therefore we turned our attention to closing. Hemostasis was ensured. A small amount of fibrillar was placed along the left tracheoesophageal groove. The strap muscles were reappro ximated. The platysma layer was closed with Vicryl stitches. The skin was then closed with Monocrylsutures in a deep dermal manner. Mastisol and Steri-Strips were then placed. All counts were noted to be correct. The patient was then turned over to the care of anesthesia. She was extubated in the operating roomand transferred to the PACU in stable condition. FINDINGS: Left, likely inferior, parathyroid adenoma. Recurrent laryngeal nerve was not definitively identified. PTH levels reduced appropriately suggesting surgical cure. Dr. Minh Ruiz was critical in aiding in identification and preservation of the recurrent laryngeal nerve as well as removal of the parathyroid gland. Geoff Matthews DNP was critical in aiding in retraction and closure. Electronically signed by Melody Gutierrez MD 01/31/2025 8:25 AM CDT * Melody Gutierrez MD - 01/30/2025 11:04 AM CDT [facility] [phone] [facility] [address] Loc: [phone] PROCEDURE NOTE Pt Name: South Ramsey Age: [age] year old, : 1960 OR Date: 01/30/2025 Pre-operative Diagnosis: Primary hyperparathyroidism [E21.0] Hypercalcemia [E83.52] Procedure(s): Left - LEFT PARATHYROIDECTOMY - Wound Class: Clean (1) - Incision Closure: Deep and Superficial Layers Post-operative Diagnosis: Same as above Surgeon(s): Melody Gutierrez MD Gietman, Bradley T, MD J2Ee Engineer: Geoff Matthews APNP Anesthesia: General Specimens: ID Type Source Tests Collected by Time A : left parathyroid gland Tissue Parathyroid SURGICAL SPECIMEN FOR PATH ([facility] ONLY) Melody Gutierrez MD 01/30/2025 1047 Blood Products Given: None Estimated Blood Loss: See I&O Flowsheet Implants: * No implants in log * Surgical Complications: None immediate Melody Gutierrez MD Date: 01/30/2025 Time:11:04 AM CDT documented in this encounter Miscellaneous Notes * Result Encounter Note - Melody Gutierrez MD - 01/30/2025 3:09 PM CDT Benign parathyroid adenoma as expected. Will review at scheduled follow-up. * Prepare Team - Mattie Farfan RN - 01/15/2025 4:55 PM CDT Anes-specific Prior ASA >= 3 History Date Comments No specialty history recorded Yes Cardiovascular Prob List: [place] Prob List: A-fib Medical Hx: CHF Medical Hx: Anticoagulant use Home Meds: Anticoagulants, anti-thrombotic, or platelet inhibitors History Date Comments Unspecified essential hypertension Atrial flutter (*) CAD (coronary artery disease) stent 2017 Essential hypertension MN (myocardial infarction) (*) Chronic atrial fibrillation (*) post ablationdoing well Atherosclerotic heart disease of ewiia[place]ayp coronary artery without angina pectoris Typical atrial flutter (*) 01/03/2024 [facility] current use of anticoagulant eliquis Yes Pulmonary Prob List: Tobacco use STOP-BANG Score over 3 History Date Comments No specialty history recorded Yes Endocrine Lab: HgB A1C History Date Comments Type 2 diabetes mellitus (*) Yes Renal/Hepatic Medical Hx: GERD History Date Comments GERD (gastroesophageal reflux disease) Kidney stone Yes Medication Management Med Mgmt: Taking 5 or more prescriptions Allergies: Penicillin/Cephalosporin Yes documented in this encounter Plan of Treatment Upcoming Encounters Date Type Department Care Team (Late st Contact Info) Description 03/01/2025 9:50 AM CDT Lab/Non-Imaging [facility] [address] [place] [address] 03/02/2025 10:30 AM CDT Nurse Visit [facility] [address] [place] [address] 03/02/2025 11:00 AM CDT Office Visit [place] [address] [place] [address] Leo Jama MD [address] [place] [address] 03/14/2025 9:10 AM CDT Lab/Non-Imaging [facility] [address] [place] [address] 03/21/2025 10:00 AM CDT Office Visit [facility] [address] [place] [phone] Stevan Roberson MD [address] [place] [address] [place] [phone] documented as of this encounter Goals Goal Patient Goal Type Associated Problems Recent Progress Patient-Stated? Author Blood Pressure < 140/90 Blood Pressure 124/66(2024 2:28 PM CDT) No Leo Jama MD hdl > 40 Result Component 54(03/01/2024 9:54 AM CDT) No Leo Jama MD documented as of this encounter Procedures Procedure Name Priority Date/Time Associated Diagnosis Comments GLUCOSE BLOOD REAGENT STRIP STAT 01/30/2025 11:49 AM CDT INTRAOPERATIVE PTH, BLOOD-SURGERY ONLY STAT 01/30/2025 11:10 AM CDT INTRAOPERATIVE PTH, BLOOD-SURGERY ONLY STAT 01/30/2025 11:00 AM CDT SURGICAL SPECIMEN FOR PATH ([facility] ONLY) Routine 01/30/2025 10:47 AM CDT INTRAOPERATIVE PTH, BLOOD-SURGERY ONLY STAT 01/30/2025 9:27 AM CDT EXPLORE PARATHYROID GLANDS 01/30/2025 9:02 AM CDT Primary hyperparathyroidis m Hypercalcemia PANEL, COMPREHENSIVE METABOLIC STAT 01/30/2025 8:55 AM CDT COMPLETE BLOOD CT NO DIFF STAT 01/30/2025 8:55 AM CDT GLUCOSE BLOOD REAGENT STRIP STAT 01/30/2025 8:53 AM CDT documented in this encounter Results * (ABNORMAL) Glucose, Whole Blood (01/30/2025 11:49 AM CDT) Glucose, POCT 158(H) 70 - 100 mg/dL 01/30/2025 11:[address] [facility] Blood, capillary 01/30/2025 11:49 AM CDT 01/30/2025 11:55 AM CDT Melody Gutierrez MD POINT OF CARE TEST ORDERABLES Final Result [facility] [address] [facility] [address] [address] [place] [address] * Intraoperative PTH,Blood-Surgery only (01/30/2025 11:10 AM CDT) PTH INTACT, INTRAOP 18.6 15.0 - 65.0 pg/mL 01/30/2025 11:[address] [facility] Blood (Blood, arterial line draw) Arterial Puncture / Unknown 01/30/2025 11:10 AM CDT 01/30/2025 11:13 AM CDT [facility] LABORATORY - 01/30/2025 11:52 AM CDT Samples should not be taken from patients receiving therapy with high biotin doses until at least 8 hours following the last biotin administration. High biotin levels in patient samples may falsely increase or decrease the measured value. Patient heterophile antibodies may interfere with immunoassays, e.g. HAMA. Melody Gutierrez MD LAB BLOOD ORDERABLES Final Re sult Performing Organization Address [facility] de Phone Number [facility] [address] [place] [phone] * Intraoperative PTH,Blood-Surgery only (01/30/2025 11:00 AM CDT) PTH INTACT, INTRAOP 24.4 15.0 - 65.0 pg/mL 01/30/2025 11:25 AM CDT [facility] Blood (Blood, arterial line draw) Arterial Puncture / Unknown 01/30/2025 11:00 AM CDT 01/30/2025 11:03 AM CDT [facility] LABORATORY - 01/30/2025 11:25 AM CDT Samples should not be taken from patients receiving therapy with high biotin doses until at least 8 hours following the last biotin administration. High biotin levels in patient samples may falsely increase or decrease the measured value. Patient heterophile antibodies may interfere with immunoassays, e.g. HAMA. Melody Gutierrez MD LAB BLOOD ORDERABLES Final Re sult Performing Organization Address [facility] Co de Phone Number [address] [phone] * Surgical Specimen for Pathology (01/30/2025 10:47 AM CDT) Case Report Surgical Pathology Report Case: [id number] Authorizing Provider: Melody Gutierrez MD Collected: 01/30/2025 1047 [facility]2025 1135 Periop Pathologist: Glen Alfaro MD Specimen: Parathyroid, left parathyroid gland 02/01/2025 6:[address] [facility] Final Diagnosis Parathyroid, left, parathyroidect jairo: - Cellular parathyroid (340 mg) compatible with chief cell adenoma. 02/01/2025 6:[address] [facility] at 1838 CDT Microscopic Description Microscopic findings support the final diagnosis. 02/01/2025 6:[address] [facility] Gross Description Received: Fresh, left parathyroid gland Number of pieces: One Color: Reeves Measurement: 0.34 g, 1.3 x 1.0 x 0.6 cm, bisected Cassettes: Entirely submitted in one cassette labeled A1. (JKB) 02/01/2025 6:[address] [facility] Special Attention Diagnosis No 02/01/2025 6:[address] [facility] Tissue PARATHYROID SPECIMEN / Unknown 01/30/2025 10:47 AM CDT 01/30/2025 11:35 AM CDT us Melody Gutierrez MD PATHOLOGY/CYTOLOGY ORDERABLES Final Result [facility] [address] [facility] [address] [place] [phone] * (ABNORMAL) Intraoperative PTH,Blood-Surgery only (01/30/2025 9:27 AM CDT) PTH INTACT, INTRAOP 67.7(H) 15.0 - 65.0 pg/mL 01/30/2025 9:[address] [facility] Blood ARTERIAL BLOOD SPECIMEN / Unknown Arterial Puncture / Unknown 01/30/2025 9:27 AM CDT 01/30/2025 9:[address] [facility] - 01/30/2025 9:52 AM CDT Samples should not be taken from patients receiving therapy with high biotin doses until at least 8 hours following the last biotin administration. High biotin levels in patient samples may falsely increase or decrease the measured value. Patient heterophile antibodies may interfere with immunoassays, e.g. HAMA. us Melody Gutierrez MD LAB BLOOD ORDERABLES Final Re sult [facility] [address] [facility] [address] [address] [place] [address] * (ABNORMAL) Complete Blood Ct No DIFF (01/30/2025 8:55 AM T) WBC COUNT 8.1 3.8 - 10.7 K/ul 01/30/2025 9:04 AM [facility] RBC COUNT 4.13(L) 4.21 - 5.75 M/ul 01/30/2025 9:04 AM [facility] HEMOGLOBIN 13.0(L) 13.5 - 17.5 g/dl 01/30/2025 9:04 AM [facility] HEMATOCRIT 38.2(L) 38.5 - 50.0 % 01/30/2025 9:04 AM [facility] MCV 92.5 80.0 - 100.0 fl 01/30/2025 9:04 AM [facility] MCH 31.5 28.2 - 34.7 pg 01/30/2025 9:04 AM [facility] MCHC 34.0 32.0 - 36.0 g/dl 01/30/2025 9:04 AM [facility] RDW 11.7 11.5 - 14.5 % 01/30/2025 9:04 AM [facility] PLATELET COUNT 211 150 - 450 K/ul 01/30/2025 9:04 AM [facility] Blood Venipuncture / Unknown 01/30/2025 8:55 AM CDT 01/30/2025 8:58 AM CDT us Alex Robledo MD LAB BLOOD ORDERABLES Final R esult [facility] [address] [facility] [address] [address] [place] [address] * (ABNORMAL) Comprehensive Metabolic Panel (01/30/2025 8:55 AM CDT) GLUCOSE 173(H) 70 - 100 mg/dL 01/30/2025 9:[address] [facility] UREA NITROGEN 12 8 - 23 mg/dL 01/30/2025 9:[address] [facility] CREATININE 0.95 0.70 - 1.20 mg/dL 01/30/2025 9:[address] [facility] eGFR 89 >=60 mL/Min/1. 73 sqm 01/30/2025 9:25 AM [facility] Comment:Calculation based on the Chronic Kidney Disease Epidemiology Collaboration (CKD-EPI) equation refit without adjustment for race. SODIUM 139 136 - 145 mmol/L (mEq/L) 01/30/2025 9:[address] [facility] POTASSIUM 4.3 3.5 - 5.1 mmol/L (mEq/L) 01/30/2025 9:25 AM [facility] CHLORIDE 109(H) 98 - 107 mmol/L (mEq/L) 01/30/2025 9:25 AM [facility] TOTAL CO2 21(L) 22 - 29 mmol/L (mEq/L) 01/30/2025 9:[address] [facility] CALCIUM 10.7(H) 8.8 - 10.2 mg/dL 01/30/2025 9:[address] [facility] TOTAL PROTEIN 6.5 6.4 - 8.3 g/dL 01/30/2025 9:[address] [facility] ALBUMIN 4.2 4.0 - 4.9 g/dL 01/30/2025 9:25 AM [facility] BILIRUBIN, TOTAL 0.3 <=1.2 mg/dL 01/30/2025 9:[address] [facility] SGOT/AST 47 10 - 50 U/L 01/30/2025 9:[address] [facility] SGPT/ALT 80(H) 10 - 50 U/L 01/30/2025 9:[address] [facility] ALK PHOSPHATASE 68 40 - 129 U/L 01/30/2025 9:[address] [facility] ANION GAP 9.4 3.0 - 12.0 01/30/2025 9:[address] [facility] Blood Venipuncture / Unknown 01/30/2025 8:55 AM CDT 01/30/2025 8:58 AM CDT us Alex Robledo MD LAB BLOOD ORDERABLES Final R esult Performing Organization Address [facility] Co de Phone Number [facility] [address] [facility] [address] [place] [phone] * (ABNORMAL) Glucose, Whole Blood (01/30/2025 8:53 AM CDT) [facility] Glucose, POCT 160(H) 70 - 100 mg/dL 01/30/2025 9:[address] [facility] Blood, capillary 01/30/2025 8:53 AM CDT 01/30/2025 9:01 AM CDT us Melody Gutierrez MD POINT OF CARE TEST ORDERABLES Final Result Performing Organization Address [facility] Co de Phone Number [facility] [address] [phone] documented in this encounter Visit Diagnoses Diagnosis Post-operative pain- Primary Other acute postoperative pain Primary hyperparathyroidism Hypercalcemia documented in this encounter Admitting Diagnoses Diagnosis Primary hyperparathyroidism Hypercalcemia documented in this encounter Administered Medications Inactive Administered Medications - up to 3 most recent administrations Medication Order MAR Action Action Date Dose Rate Site acetaminophen (OFIRMEV) IV 1,000 mg, Intravenous, at 400 mL/hr, every 6 hours as needed, Starting on Wed01/30/25 at 1211, Until Wed01/30/25 at 1610, mild pain, moderate pain, Indications: Pain, If patient has not received acetaminophen in the previous 6 hours OR administered inside the operating room., PACUIndications:Pain atropine 1 mg/10 mL injection 0.5 mg, Intravenous, once as needed today, 1 dose, Starting on Wed01/30/25 at 1211, Until Wed01/30/25 at 1709, Give if glycopyrrolate not effective, PACU dexAMETHasone (DECADRON) 4 mg/mL injection 4 mg, Intravenous, once as needed today, 1 dose, Starting on Wed01/30/25 at 1211, Until Wed01/30/25 at 170, For nausea/vomiting, If patient has not received dexamethasone perioperatively, PACU fentaNYL (SUBLIMAZE) 100 mcg/2 mL injection (preservative-free) 25-50 mcg, Intravenous, every 5 minutes as needed, 8 doses, Starting on Wed01/30/25 at 1211, Until Wed01/30/25 at 170, Slow IV push over 2 minutes every 5 minutes as needed. Do not exceed 200mcg total dose. If allergy or intolerance to fentanyl, use Morphine. Hold for respiratory rate < 10 breaths/minute, increased sedation, or agitation/confusion and notify Anesthesiologist. If ineffective, notify Anesthesia before changing to alternative opioid. DO NOT ALTERNATE OPIOIDS. If patient receives more than one type of opioid in PACU, place patient on Respiratory High Risk Protocol. Do not discharge patient until at least 30 minutes after last dose of opioid medication., PACU flumazenil (ROMAZICON) injection 0.2 mg, Intravenous, as needed, Starting on Wed01/30/25 at 1211, Until Wed01/30/25 at 170, For over sedated patient: Every 60 seconds (not to exceed a cumulative dose of 1mg) For re-sedation after the first dose(s): May repeat every 20 minutes for re-sedation, up to 3mg dose per hour. Assess level of consciousness frequently. Monitor vital signs and airway closely. Observe continually for resedation, respiratory depression, seizure activity, or other residual benzodiazepine effects for at least 2 hours following administration., PACU glycopyrrolate (ROBINUL) 0.4 mg/2 mL (0.2 mg/mL) injection 200 mcg, Intravenous, once as needed today, 1 dose, Starting on Wed01/30/25 at 1211, Until Wed01/30/25 at 170, For symptomatic or profound bradycardia - notify anesthesia, For symptomatic or profound bradycardia - notify anesthesia., PACU HYDROcodone-acetaminophen (LORCET,LORTAB,NORCO) 5-325 mg tablet 1-2 tablet, Oral, every 4 hours as needed, Starting on Wed01/30/25 at 1306, Until Wed01/30/25 at 170, moderate pain, Post-op Given 01/30/2025 2:41 PM CDT 1 tablet HYDROmorphone HCl (DILAUDID) 0.2 MG/ML injection 0.2-0.4 mg, Intravenous, every 10 minutes as needed, 10 doses, Starting on Wed01/30/25 at 1211, Until Wed01/30/25 at 1708, May give 0.4mg X 1, then 0.2mg 20 minutes later, if needed may give 0.2mg doses every 10 minutes with a maximum TOTAL dose of 1.6mg. If pain is not adequately controlled, contact Anesthesia. First choice for pain control if non-opioids are not effective. If allergy or intolerance to hydromorphone, start with Fentanyl. Hold for respiratory rate < 10 breaths/minute, increased sedation, or agitation/confusion and notify anesthesiologist. If ineffective, notify Anesthesia before changing to alternative opioid. DO NOT ALTERNATE OPIOIDS. If patient receives more than one type of opioid in PACU, place patient on Respiratory High Risk Protocol. Do not discharge patient until at least 30 minutes after last dose of opioid medication., PACU lactated ringers IVF Intravenous, at 25 mL/hr, continuous PRN, Starting on Wed01/30/25 at 0809, Until Wed01/30/25 at 1708, TKO Rate. Start IV on patients age 12 and older and/or if indicated. If local only anesthesia and no IV medications have been ordered, do not start an IV., Pre-op Continued by Anesthesia 01/30/2025 9:19 AM CDT 25 mL/hr New Bag 01/30/2025 8:55 AM CDT 25 mL/hr lactated ringers IVF Intravenous, at 25 mL/hr, as needed, Starting on Wed01/30/25 at 1211, Until Wed01/30/25 at 170, TKO Rate., PACU lidocaine (preservative-free) (XYLOCAINE) 1 % 0.1-0.2 mL, Intradermal, as needed, Starting on Wed01/30/25 at 0809, Until Wed01/30/25 at 170, To IV site prior to starting IV., Pre-op lidocaine HCl Urethral/Mucosal (URO-JET) 2 % external gel 1 Application, Urethral, as needed, Starting on Wed01/30/25 at 1211, Until Wed01/30/25 at 170, for catherization, -For Catheter Insertion- Lidocaine is instilled using clean technique 3-5 minutes prior to sterile catheter insertion. Cleanse area with povidone iodine swab sticks. For males-instill about 6 mLs. For females-instill about 3-5 mLs., PACU, Apply to (specify location on the body): urethra meperidine (DEMEROL) 50 mg/mL injection 12.5 mg, Intravenous, as needed, Starting on Wed01/30/25 at 1211, Until Wed01/30/25 at 170, SHIVERING ONLY. May repeat x1 after 10 minutes as needed for a maximum total dose of 25mg., Try alternative measures prior to administering meperidine (warming blanket, warm blankets, heat packs). Do not discharge patient until at least 30 minutes after last dose of opioid medication., PACU metoclopramide (REGLAN) 5 mg/mL injection 10 mg, Intravenous, as needed, Starting on Wed01/30/25 at 1211, Until Wed01/30/25 at 170, nausea/vomiting, May repeat x1 in 15-30 minutes as needed persistent nausea/vomiting up to a max of 20 mg total Check with anesthesia before giving if the patient has Parkinson's disease and is on anti-Parkinson's medications., PACU midazolam HCl (PF) (VERSED) 2 mg/2 mL (1 mg/mL) injection 2 mg, Intravenous, Periop - Once, Starting on Wed01/30/25 at 0840, 1 dose, Pre-op, For IV (intravenous) administration - only sedation trained nurses and SWAT may administer via the IV route.Indications:Periprocedural Sedation Given 01/30/2025 9:16 AM CDT 2 mg morphine 2 mg/mL injection 2 mg, Intravenous, every 10 minutes as needed, 5 doses, Starting on Wed01/30/25 at 1211, Until Wed01/30/25 at 170, If allergy or intolerance to morphine, consult Anesthesia. May give 2-4mg every 10 minutes as needed. Do not exceed 20mg total dose. Hold for respiratory rate < 10 breaths/minute, increased sedation, or agitation/confusion and notify Anesthesiologist. If ineffective, notify Anesthesia before changing to alternative opioid. DO NOT ALTERNATE OPIOIDS. If patient receives more than one type of opioid in PACU, place patient on Respiratory High Risk Protocol. Do not discharge patient until at least 30 minutes after last dose of opioid medication., PACU morphine 4 mg/mL injection 4 mg, Intravenous, every 10 minutes as needed, 5 doses, Starting on Wed01/30/25 at 1211, Until Wed01/30/25 at 1709, If allergy or intolerance to morphine, consult Anesthesia. May give 2-4mg every 10 minutes as needed. Do not exceed 20mg total dose. Hold for respiratory rate < 10 breaths/minutes, increased sedation, or agitation/confusion and notify Anesthesiologist. If ineffective, notify Anesthesia before changing to alternative opioid. DO NOT ALTERNATE OPIOIDS. If patient receives more than one type of opioid in PACU, place patient on Respiratory High Risk Protocol Do not discharge patient until at least 30 minutes after last dose of opioid medication, PACU NaCl 0.9 % infusion Intravenous, at 25 mL/hr, continuous PRN, Starting on Wed01/30/25 at 0809, Until Wed01/30/25 at 170, Use for patients with renal failure, hyperkalemia, or cardiothoracic surgeons. For patients with renal failure use microdrip tubing., Pre-op NaCl 0.9 % injection 3 mL, Intravenous, as needed, Starting on Wed01/30/25 at 0809, Until Wed01/30/25 at 1709, Flush scheduled and as needed when no IV infusing., Pre-op NaCl 0.9 % injection 3 mL, Intravenous, as needed, Starting on Wed01/30/25 at 1211, Until Wed01/30/25 at 1709, PACU naloxone (NARCAN) 0.4 mg/mL injection 0.04-0.08 mg, Intravenous, as needed, Starting on Wed01/30/25 at 1211, Until Wed01/30/25 at 1709, Dilute 0.4 mg (1 mL) ampule with 9 mL of normal saline for a total volume of 10 mL to achieve a concentration of 0.04 mg/mL. Administer 1-2 mL (0.04-0.08 mg) every 1-2 minutes until patient responsive. Notify Anesthesia if need to administer. Do not transfer patient for 2 hours after reversal and/or consult with anesthesia before transfer, PACU ondansetron (ZOFRAN) injection 4 mg, Intravenous, once as needed today, 1 dose, Starting on Wed01/30/25 at 1211, Until Wed01/30/25 at 1709, nausea/vomiting, Give if patient has not received during surgery., PACU ondansetron (ZOFRAN) injection 4 mg, Intravenous, every 6 hours as needed, Starting on Wed01/30/25 at 1700, Until Wed01/30/25 at 1709, nausea/vomiting, Indications: Nausea and Vomiting, First Choice if patient has NOT received in past 6 hours. If 6 hours has passed since last dose of ondansetron and the patient is still nauseated, may repeat ondansetron dose, Post-opIndications:Nausea and Vomiting ondansetron (ZOFRAN) tablet 4 mg, Oral, every 6 hours as needed, Starting on Wed01/30/25 at 1700, Until Wed01/30/25 at 1709, nausea/vomiting, Indications: Nausea and Vomiting, First Choice if patient has NOT received in past 6 hours. If 6 hours has passed since last dose of ondansetron and the patient is still nauseated, may repeat ondansetron dose., Post-opIndications:Nausea and Vomiting documented in this encounter Active and Recently Administered Medications Times are shown in CDT. Scheduled Medication Order 01/28/2025 01/29/2025 01/30/2025 midazolam HCl (PF) (VERSED) 2 mg/2 mL (1 mg/mL) injection (COMPLETED) 2 mg, Intravenous, Periop - Once, Starting on Wed01/30/25 at 0840, 1 dose, Pre-op, For IV (intravenous) administration - only sedation trained nurses and SWAT may administer via the IV route. 0916 (Given - Provid er: Randi Cedeno RN) Continuous Medication Order 01/28/2025 01/29/2025 01/30/2025 lactated ringers IVF 100 mL/hr, Intravenous, continuous, Starting on Wed01/30/25 at 1322, Until Wed01/30/25 at 1709, Keep IV from OR hanging at 100 mL/hr until taking adequate orals, then discontinue. , Post-op 1322 (Due) PRN Medication Order 01/28/2025 01/29/2025 01/30/2025 acetaminophen (OFIRMEV) IV 1,000 mg, Intravenous, at 400 mL/hr, every 6 hours as needed, Starting on Wed01/30/25 at 1211, Until Wed01/30/25 at 1610, mild pain, moderate pain, Indications: Pain, If patient has not received acetaminophen in the previous 6 hours OR administered inside the operating room., PACU acetaminophen (TYLENOL) tablet 650 mg, Oral, every 4 hours as needed, Starting on Wed01/30/25 at 1306, Until Wed01/30/25 at 1709, mild pain, Not to exceed 2,600 mg in 24 hours., Post-op atropine 1 mg/10 mL injection 0.5 mg, Intravenous, once as needed today, 1 dose, Starting on Wed01/30/25 at 1211, Until Wed01/30/25 at 1709, Give if glycopyrrolate not effective, PACU dexAMETHasone (DECADRON) 4 mg/mL injection 4 mg, Intravenous, once as needed today, 1 dose, Starting on Wed01/30/25 at 1211, Until Wed01/30/25 at 1709, For nausea/vomiting, If patient has not received dexamethasone perioperatively, PACU dexAMETHasone (DECADRON) 4 mg/mL injection 4 mg, Intravenous, once as needed today, 1 dose, Starting on Wed01/30/25 at 1306, Until Wed01/30/25 at 170, nausea/vomiting, Second Choice May give one time if patient has NOT received a single dose dexamethasone perioperatively., Post-op fentaNYL (SUBLIMAZE) 100 mcg/2 mL injection (preservative-free) 25-50 mcg, Intravenous, every 5 minutes as needed, 8 doses, Starting on Wed01/30/25 at 1211, Until Wed01/30/25 at 170, Slow IV push over 2 minutes every 5 minutes as needed. Do not exceed 200mcg total dose. If allergy or intolerance to fentanyl, use Morphine. Hold for respiratory rate < 10 breaths/minute, increased sedation, or agitation/confusion and notify Anesthesiologist. If ineffective, notify Anesthesia before changing to alternative opioid. DO NOT ALTERNATE OPIOIDS. If patient receives more than one type of opioid in PACU, place patient on Respiratory High Risk Protocol. Do not discharge patient until at least 30 minutes after last dose of opioid medication., PACU flumazenil (ROMAZICON) injection 0.2 mg, Intravenous, as needed, Starting on Wed01/30/25 at 1211, Until Wed01/30/25 at 170, For over sedated patient: Every 60 seconds (not to exceed a cumulative dose of 1mg) For re-sedation after the first dose(s): May repeat every 20 minutes for re-sedation, up to 3mg dose per hour. Assess level of consciousness frequently. Monitor vital signs and airway closely. Observe continually for resedation, respiratory depression, seizure activity, or other residual benzodiazepine effects for at least 2 hours following administration., PACU glycopyrrolate (ROBINUL) 0.4 mg/2 mL (0.2 mg/mL) injection 200 mcg, Intravenous, once as needed today, 1 dose, Starting on Wed01/30/25 at 1211, Until Wed01/30/25 at 170, For symptomatic or profound bradycardia - notify anesthesia, For symptomatic or profound bradycardia - notify anesthesia., PACU HYDROcodone-acetaminophen (HYCET) 7.5-325 mg/15 mL oral liquid (solution) 10-20 mL, Oral, every 4 hours as needed, Starting on Wed01/30/25 at 1306, Until Wed01/30/25 at 1709, moderate pain, Post-op HYDROcodone-acetaminophen (LORCET,LORTAB,NORCO) 5-325 mg tablet 1-2 tablet, Oral, every 4 hours as needed, Starting on Wed01/30/25 at 1306, Until Wed01/30/25 at 170, moderate pain, Post-op 1441 (Given - Provid er: Estefany Lagunas RN) HYDROmorphone HCl (DILAUDID) 0.2 MG/ML injection 0.2-0.4 mg, Intravenous, every 10 minutes as needed, 10 doses, Starting on Wed01/30/25 at 1211, Until Wed01/30/25 at 170, May give 0.4mg X 1, then 0.2mg 20 minutes later, if needed may give 0.2mg doses every 10 minutes with a maximum TOTAL dose of 1.6mg. If pain is not adequately controlled, contact Anesthesia. First choice for pain control if non-opioids are not effective. If allergy or intolerance to hydromorphone, start with Fentanyl. Hold for respiratory rate < 10 breaths/minute, increased sedation, or agitation/confusion and notify anesthesiologist. If ineffective, notify Anesthesia before changing to alternative opioid. DO NOT ALTERNATE OPIOIDS. If patient receives more than one type of opioid in PACU, place patient on Respiratory High Risk Protocol. Do not discharge patient until at least 30 minutes after last dose of opioid medication., PACU lactated ringers IVF Intravenous, at 25 mL/hr, continuous PRN, Starting on Wed01/30/25 at 0809, Until Wed01/30/25 at 170, TKO Rate. Start IV on patients age 12 and older and/or if indicated. If local only anesthesia and no IV medications have been ordered, do not start an IV., Pre-op 0855 (New Bag - Prov ider: Laurel Ruff RN)0919 (Continued by Anesthesia - Provider: Ayo Gilmore CRNA)1146 (Anesthesia Volume Adjustment - Provider: Ayo Gilmore CRNA)1709 (Due: Order Ending - Provider: Initial Provider - Comment: [Order ends at this time. Document the following action when infusion is complete: Stopped]) lactated ringers IVF Intravenous, at 25 mL/hr, as needed, Starting on Wed01/30/25 at 1211, Until Wed01/30/25 at 1709, TKO Rate., PACU lidocaine (preservative-free) (XYLOCAINE) 1 % 0.1-0.2 mL, Intradermal, as needed, Starting on Wed01/30/25 at 0809, Until Wed01/30/25 at 1709, To IV site prior to starting IV., Pre-op lidocaine HCl Urethral/Mucosal (URO-JET) 2 % external gel 1 Application, Urethral, as needed, Starting on Wed01/30/25 at 1211, Until Wed01/30/25 at 1709, for catherization, -For Catheter Insertion- Lidocaine is instilled using clean technique 3-5 minutes prior to sterile catheter insertion. Cleanse area with povidone iodine swab sticks. For males-instill about 6 mLs. For females-instill about 3-5 mLs., PACU, Apply to (specify location on the body): urethra lidocaine-EPINEPHrine (XYLOCAINE-EPINEPHRINE) 1 %-1:100,000 injection (CANCELED) as needed, Starting on Wed01/30/25 at 0930, Until Wed01/30/25 at 1125, Intra-op 0930 (Given - Provid er: Melody Gutierrez MD) meperidine (DEMEROL) 50 mg/mL injection 12.5 mg, Intravenous, as needed, Starting on Wed01/30/25 at 1211, Until Wed01/30/25 at 1709, SHIVERING ONLY. May repeat x1 after 10 minutes as needed for a maximum total dose of 25mg., Try alternative measures prior to administering meperidine (warming blanket, warm blankets, heat packs). Do not discharge patient until at least 30 minutes after last dose of opioid medication., PACU metoclopramide (REGLAN) 5 mg/mL injection 10 mg, Intravenous, as needed, Starting on Wed01/30/25 at 1211, Until Wed01/30/25 at 1709, nausea/vomiting, May repeat x1 in 15-30 minutes as needed persistent nausea/vomiting up to a max of 20 mg total Check with anesthesia before giving if the patient has Parkinson's disease and is on anti-Parkinson's medications., PACU morphine 2 mg/mL injection(Linked Group 1) 2 mg, Intravenous, every 10 minutes as needed, 5 doses, Starting on Wed01/30/25 at 1211, Until Wed01/30/25 at 170, If allergy or intolerance to morphine, consult Anesthesia. May give 2-4mg every 10 minutes as needed. Do not exceed 20mg total dose. Hold for respiratory rate < 10 breaths/minute, increased sedation, or agitation/confusion and notify Anesthesiologist. If ineffective, notify Anesthesia before changing to alternative opioid. DO NOT ALTERNATE OPIOIDS. If patient receives more than one type of opioid in PACU, place patient on Respiratory High Risk Protocol. Do not discharge patient until at least 30 minutes after last dose of opioid medication., PACU morphine 2 mg/mL injection 1 mg, Intravenous, every 2 hours as needed, Starting on Wed01/30/25 at 1306, Until Wed01/30/25 at 1709, moderate pain, Post-op morphine 4 mg/mL injection(Linked Group 1) 4 mg, Intravenous, every 10 minutes as needed, 5 doses, Starting on Wed01/30/25 at 1211, Until Wed01/30/25 at 1709, If allergy or intolerance to morphine, consult Anesthesia. May give 2-4mg every 10 minutes as needed. Do not exceed 20mg total dose. Hold for respiratory rate < 10 breaths/minutes, increased sedation, or agitation/confusion and notify Anesthesiologist. If ineffective, notify Anesthesia before changing to alternative opioid. DO NOT ALTERNATE OPIOIDS. If patient receives more than one type of opioid in PACU, place patient on Respiratory High Risk Protocol Do not discharge patient until at least 30 minutes after last dose of opioid medication, PACU NaCl 0.9 % infusion Intravenous, at 25 mL/hr, continuous PRN, Starting on Wed01/30/25 at 0809, Until Wed01/30/25 at 170, Use for patients with renal failure, hyperkalemia, or cardiothoracic surgeons. For patients with renal failure use microdrip tubing., Pre-op NaCl 0.9 % injection 3 mL, Intravenous, as needed, Starting on Wed01/30/25 at 0809, Until Wed01/30/25 at 170, Flush scheduled and as needed when no IV infusing., Pre-op NaCl 0.9 % injection 3 mL, Intravenous, as needed, Starting on e 01/30/25 at 1211, Until Wed01/30/25 at 1709, PACU NaCl 0.9 % injection 3 mL, Intravenous, as needed, Starting on Wed01/30/25 at 1306, Until 01/30/25 at 1709, Post-op NaCl 0.9% (irrigation bottle/container) irrigation (CANCELED) as needed, Starting on Wed01/30/25 at 0946, Until Wed01/30/25 at 1125, Intra-op 0946 (Given - Provid er: Melody Gutierrez MD - Comment: sterile field) naloxone (NARCAN) 0.4 mg/mL injection 0.04-0.08 mg, Intravenous, as needed, Starting on e 01/30/25 at 1211, Until Wed01/30/25 at 1709, Dilute 0.4 mg (1 mL) ampule with 9 mL of normal saline for a total volume of 10 mL to achieve a concentration of 0.04 mg/mL. Administer 1-2 mL (0.04-0.08 mg) every 1-2 minutes until patient responsive. Notify Anesthesia if need to administer. Do not transfer patient for 2 hours after reversal and/or consult with anesthesia before transfer, PACU naloxone (NARCAN) 0.4 mg/mL injection 0.1 mg, Intravenous, as needed, Starting on Wed01/30/25 at 1306, Until Wed01/30/25 at 1709, every 2 minutes, For sedation score -4 to -5 or respiratory rate less than 10 breaths/min. Repeat every 2 minutes until sedation score is -3 with adequate respiratory rate and effort., Post-op ondansetron (ZOFRAN) injection 4 mg, Intravenous, once as needed today, 1 dose, Starting on Wed01/30/25 at 1211, Until Wed01/30/25 at 1709, nausea/vomiting, Give if patient has not received during surgery., PACU ondansetron (ZOFRAN) injection(Linked Group 2) 4 mg, Intravenous, every 6 hours as needed, Starting on Wed01/30/25 at 1700, Until Wed01/30/25 at 1709, nausea/vomiting, Indications: Nausea and Vomiting, First Choice if patient has NOT received in past 6 hours. If 6 hours has passed since last dose of ondansetron and the patient is still nauseated, may repeat ondansetron dose, Post-op ondansetron (ZOFRAN) tablet(Linked Group 2) 4 mg, Oral, every 6 hours as needed, Starting on Wed01/30/25 at 1700, Until Wed01/30/25 at 1709, nausea/vomiting, Indications: Nausea and Vomiting, First Choice if patient has NOT received in past 6 hours. If 6 hours has passed since last dose of ondansetron and the patient is still nauseated, may repeat ondansetron dose., Post-op prochlorperazine (COMPAZINE) injection 10 mg, Intravenous, every 6 hours as needed, Starting on Wed01/30/25 at 1306, Until Wed01/30/25 at 1709, nausea/vomiting, Third Choice May give if patient has already received either ondansetron and dexamethasone, is still nauseated, AND has not already received a dose in the past 6 hours, Post-op Linked Groups Order Group 1: morphine 2 mg/mL injectionJump to med 2 mg, Intravenous, every 10 minutes as needed, 5 doses, Starting on Wed01/30/25 at 1211, Until Wed01/30/25 at 1709, If allergy or intolerance to morphine, consult Anesthesia. May give 2-4mg every 10 minutes as needed. Do not exceed 20mg total dose. Hold for respiratory rate < 10 breaths/minute, increased sedation, or agitation/confusion and notify Anesthesiologist. If ineffective, notify Anesthesia before changing to alternative opioid. DO NOT ALTERNATE OPIOIDS. If patient receives more than one type of opioid in PACU, place patient on Respiratory High Risk Protocol. Do not discharge patient until at least 30 minutes after last dose of opioid medication., PACU Or morphine 4 mg/mL injectionJump to med 4 mg, Intravenous, every 10 minutes as needed, 5 doses, Starting on Wed01/30/25 at 1211, Until Wed01/30/25 at 1709, If allergy or intolerance to morphine, consult Anesthesia. May give 2-4mg every 10 minutes as needed. Do not exceed 20mg total dose. Hold for respiratory rate < 10 breaths/minutes, increased sedation, or agitation/confusion and notify Anesthesiologist. If ineffective, notify Anesthesia before changing to alternative opioid. DO NOT ALTERNATE OPIOIDS. If patient receives more than one type of opioid in PACU, place patient on Respiratory High Risk Protocol Do not discharge patient until at least 30 minutes after last dose of opioid medication, PACU Group 2: ondansetron (ZOFRAN) injectionJump to med 4 mg, Intravenous, every 6 hours as needed, Starting on Wed01/30/25 at 1700, Until Wed01/30/25 at 1709, nausea/vomiting, Indications: Nausea and Vomiting, First Choice if patient has NOT received in past 6 hours. If 6 hours has passed since last dose of ondansetron and the patient is still nauseated, may repeat ondansetron dose, Post-op Or ondansetron (ZOFRAN) tabletJump to med 4 mg, Oral, every 6 hours as needed, Starting on Wed01/30/25 at 1700, Until Wed01/30/25 at 1709, nausea/vomiting, Indications: Nausea and Vomiting, First Choice if patient has NOT received in past 6 hours. If 6 hours has passed since last dose of ondansetron and the patient is still nauseated, may repeat ondansetron dose., Post-op documented in this encounter Additional Health Concerns Assessment Noted Time PHQ-9 Depression Total Score: 0 01/16/20 4:37 PM CDT A fall risk assessment has been complete d for the patient 01/30/2025 8:14 AM CDT documented as of this encounter Care Teams Chip Silo Tender Relationship Specialty Start Date End Date Leo Jama MD [address] [place] [address] PCP - General Internal Medicine 03/01/24 documented as of this encounter
--- OUTSIDE RECORDS SUMMARY | 2025-01-30 09:19 | XMS_ITS | Encounter Summary ---
Author Organization [facility], and Affiliates Address [address] [place] [address] Care Team Providers Care Wet Wash Assembler Name Role Phone Leo Jama MD Primary Care Provider [phone] Reason for Visit * Auth/Cert - BLN (Routine) Specialty Diagnoses / Procedures Referred By Contac t Referred To Contact Diagnoses Primary hyperparathyroidism Hypercalcemia Primary hyperparathyroidism [E21.0] Hypercalcemia [E83.52] Procedures EXPLORE PARATHYROID GLANDS PARATHYROIDECTOMY / EXPLORATION OF PARATHYROID Referral ID Status Reason Start Date Expiration Date Visits Re quested Visits Authorized [id number] 10 10 Encounter Details Date Type Department Care Team (Late st Contact Info) Description 01/30/2025 9:19 AM CDT Anesthesia Event [facility]-Surgery Periop [address] [place] [address] Collins Sanabria DO [address] [place] [phone] Anesthesia Record Procedure Summary Procedure Name Responsible Anesthesiologist Anesthesia Start Time Anesthesia Stop Time LEFT PARATHYROIDECTOMY (Left: NECK) Collins Sanabria DO 01/30/25 0919 01/30/25 1144 Events Date Time Event Comment 01/30/2025 0839 0917 In Room 0919 An Start 0919 An Start Data 0919 Pt Re-eval The patient was reevaluated immediately before administration of anesthesia. 0922 Anesthesiologist In Room 0924 An Induction 0927 An Intubation 0930 Anesthesia Ready 0940 Proc Start 1125 Proc End 1133 An Extubation 1134 An Stop Data 1138 Out of Room 1143 Handoff to Next Phase of Car e I completed my handoff to the receiving clinician during which we: 1. Identified the patient 2. Identified the responsible provider 3. Reviewed the pertinent medical history and allergies 4. Discussed the surgical course 5. Reviewed intra-op anesthesia management and issues during anesthesia 6. Set expectations for post-procedure period 7. Allowed opportunity for questions and acknowledgement of understanding. 1144 An Stop Meds Name Total fentaNYL 100 mcg/2 mL 100 mcg succinylcholine 100 mg/5 mL 100 mg rocuronium 50 mg/5 mL 10 mg lidocaine (preservative-free) 1 % 50 mg phenylephrine 10 mg/mL 1,165 mcg HYDROmorphone 1 mg/mL 1 mg dexAMETHasone 20 mg/5 mL 10 mg propofol 200 mg/20 mL 200 mg labetalol 5 mg/mL 10 mg ondansetron 4 mg/2 mL (2 mg/mL) 4 mg lactated ringers IVF 700 mL * Agents No agents on file. * Blood No blood administrations on file. Lines, Drains, and Airways Type Details Placement Removal Skin Issue (BLN/[place]) 04/04/24; 0951; Incision; Right; Groin; venous puncture 04/04/24 0951 by Linda Ho RN Skin Issue (BLN/[place]) 04/04/24; 0951; Incision; Left; Groin; venous puncture 04/04/24 0951 by Linda Ho RN Skin Issue (BLN/[place]) 01/30/25; 1003; Incision; Neck; one midline incision 01/30/25 1003 by Randi Cedeno RN Peripheral IV 01/30/25; 0854; Brit t RN; 20 G; Left; Antecubital; Chlorhexidine; Tolerated well 01/30/25 0854 by Laurel Ruff RN 01/30/25 1445 by Estefany Lagunas RN ETT 01/30/25; 0927 (alvin atkins via procedure documentation); Ausculation of breath sounds, End-tidal CO2 measurement; Cuffed; 1 01/30/25 0927 by Ayo Gilmore CRNA 01/30/25 1138 by Ayo Gilmore CRNA Art Line 01/30/25; 0949 (alvin atkins via procedure documentation); Left; Radial; 01/30/25; 1240; Yes; Per order; Occlusive dressing applied, Pressure applied >5 minutes 01/30/25 0949 by Ayo Gilmore, CAROL 01/30/25 1240 by Inga Watkins RN documented in this encounter Social History Tobacco Use Types Packs/Day Years Used Date Smoking Tobacco: Former Cigarettes 0 12/01/2022 - 02/19/1976 Passive Smoke Exposure: Never Smokeless Tobacco: Never Alcohol Use Standard Drinks/Week Comments Not Currently 0 (1 standard drink = 0.6 oz pur e alcohol) [facility] Utilities Answer Date Recorded In the past 12 months has [employer], gas, oil, or water [employer] threatened to shut off services in your [...] often do you attend chur ch or bahai services? Never 03/01/2024 Do you belong to any clubs o r organizations such as voodoo groups, unions, fraternal or athletic groups, or [...] medical care, and heating? Somewhat hard 03/01/2024 [facility] [place] [facility] - Occupational Stress [...] any time in the past 12 m [facility], were you homeless or living in a senior care (including now)? No 03/01/2024 Alcohol Use Answer [...] on file Legal Sex Male 6:27 PM UC ARCHITECT Gender Identity Not on file Sexual Orientation Not on file documented as of this encounter Procedure Notes * Ayo Gilmore CRNA - 01/30/2025 9:51 AM CDTAssociated Order(s): Airway [facility] [phone] [facility] [id number] Loc: [phone] Patient: [place] MR#: [id number]#: [id number] : 1960 AGE: [age] year old SEX: male ADMIT DATE: 01/30/2025 Airway Start Tme: 01/30/2025 9:27 AM Location: OR Urgency: Elective Difficult Airway: No difficult airway Staffing COTTON PULLER/AA: Ayo Gilmore CRNA Student COTTON PULLER / Other staff: marilyn muñoz Performed: Student COTTON PULLER/Other Indications and Patient Condition Indications for Airway Management: Surgery Patient status: Paralyzed and Unconscious Preoxygenation: BVM Spontaneous Ventilation: absent Medications Administered Please refer to the MAR for medication administration. Final Airway Details Final Airway Type: Endotracheal tube Ease of mask ventilation: easy Final Endotracheal Airway: NIM tube Cuffed: Yes Cuff Inflated: Yes Blade Type: Glidescope Laryngoscope Blade/Videolaryngoscope Blade Size: 4 ETT secured at (cm): 22 ETT secured at: Teeth Tube secured with: Tape Ease of Intubation: Easy Number of Attempts: 1 Special Maneuver Used: Stylet Placement Verified by: chest rise and ETCO2 monitor Cormack-Lehane Classification: Grade I - full view of glottis Breath sounds: Equal and Bilateral Patient tolerated the procedure well with no immediate complications. * Ayo Gilmore CRNA - 01/30/2025 9:48 AM CDTAssociated Order(s): Line Placement [facility] [phone] [facility] [id number] Loc: [phone] Patient: [place] MR#: [id number]#: [id number] : 1960 AGE: [age] year old SEX: male ADMIT DATE: 01/30/2025 Line Placement Type of Line: Arterial line placed on the Left Radial Staffing Anesthesiologist: Collins Sanabria DO COTTON PULLER/AA: Ayo Gilmore CRNA Performed: Anesthesiologist Preanesthesia Checklist The following were addressed during the Anesthesia checklist: Patient identified, IV checked, Site marked, Risks and benefits discussed, Procedural consent, Monitors and equipment checked, Patient evaluation and Timeout performed. Risks discussed: Bleeding, Intravascular injection, Pneumothorax, Infection, Nerve injury, Seizure,Failure, Headache and Other. All patients' Anesthetic questions were answered. Consent given by: Patient Procedure details: Please refer to the MAR for medication administration. Preparation: Chlorhexidine Sterile barriers: Hat, Mask, Sterile gloves and Sterile gown Device placed: Arterial catheter Ultrasound guidance: was not used. Catheter Information: Catheter size: 20G Post-procedure: Sterile dressing applied. documented in this encounter Consult Notes * Collins Sanabria DO - 01/31/2025 9:02 AM CDT [facility] [phone] [facility] [address] Loc: [phone] Post Anesthesia Evaluation NAME: [place] AGE: [age] year old, : 1960 Date: 01/30/2025 Patient location: [address] SURG ROOM 01 Procedure: LEFT PARATHYROIDECTOMY (Left: NECK) O2 Device: None (Room air) Does patient have pain?: Yes Consciousness Score: Fully awake Last vitals: Vitals Value Taken Time BP 138/84 01/30/25 12:45 Temp 97.4 ??F (36.3 ??C) 01/30/25 12:30 Pulse 77 01/30/25 12:53 Resp 14 01/30/25 12:45 SpO2 96 % 01/30/25 12:53 Vitals shown include unfiled device data. Airway: natural Supplemental O2: room air Mental status: awake, back to baseline He denies nausea/vomiting. Pain: Pain control is satisfactory. Hydration Adequate: intake adequate Tolerated anesthesia with no apparent complications. No relevant notable events. * Collins Sanabria DO - 01/30/2025 8:35 AM CDT [facility] [phone] [facility] [address] Loc: [phone] Pre Anesthesia Evaluation NAME: [place] AGE: [age] year old, : 1960 Date: 01/30/2025 Patient location: [facility] 3RD SURG ROOM 01 Procedure: PARATHYROIDECTOMY (NECK) Anesthesia Evaluation Reviewed patient summary, labs, allergies, medications, NPO status and H&P. Pre- anesthetic examination perfomed, no interval changes noted. Anesthesia history reviewed with patient and/or family. Estimated body mass index is 26.69 kg/m?? as calculated from the following: Height as of 01/11/25: 1.778 m (5' 10). Weight as of 01/11/25: 84.4 kg (186 lb). Airway Mallampati: II TM distance: >3 FB Neck ROM: full Mouth opening: normal Dental Pulmonary - negative ROS and normal exam Cardiovascular - normal exam (+) hypertension, past NM (s/p stent 2016), CAD,The patient has a history of Cardiac stents, dysrhythmias (Afib s/p ablation 04/04/24) ROS comment: TTE 07/25/24: This is a limited examination. The patient was in normal sinus rhythm during the study. There is no comparison study available. Ejection Fraction = 40-45%. There is akinesis of the mid to basal inferior wall and moderate to severe hypokinesis of the lateral wall. Mild left atrial enlargement The aortic valve appears to be sclerotic. Neuro/Psych GI/Hepatic (+) hiatal hernia, GERD, liver disease (NAFLD) Renal Endocrine (+)diabetes mellitus type 2 Comments: - hyperparathyroidism Other Anesthesia Plan ASA 3 general (The risks benefits and alternatives were discussed with the patient prior to delivering anesthesiacare. The risks include but are not limited to nausea, vomiting, adverse medication reaction(s), blood pressure changes, respiratory changes, dental/oral trauma, and numbness in the arms/legs from nerve pressure. The benefits include but are not limited to being asleep and unaware of the surgical procedure. The alternatives include but are not limited to cancellation of the surgical procedure. There were no vitals filed for this visit. Patient weight not recorded) Additional Techniques: arterial line A-line for lab draws intravenous induction Anesthetic plan and risks discussed with patient. documented in this encounter Plan of Treatment Upcoming Encounters Date Type Department Care Team (Late st Contact Info) Description 03/01/2025 9:50 AM CDT Lab/Non-Imaging [facility] [address] [place] [address] 03/02/2025 10:30 AM CDT Nurse Visit [facility] [address] [place] [address] 03/02/2025 11:00 AM CDT Office Visit [facility] [address] [place] [address] Leo Jama MD [address] [facility] [address] 03/14/2025 9:10 AM CDT Lab/Non-Imaging [facility] [address] [place] [address] 03/21/2025 10:00 AM CDT Office Visit [facility] Endocrinology [address] [place] [phone] Stevan Roberson MD [address] [place] [address] [place] [phone] documented as of this encounter Goals Goal Patient Goal Type Associated Problems Recent Progress Patient-Stated? Author Blood Pressure < 140/90 Blood Pressure 124/66(2024 2:28 PM CDT) No Leo Jama MD hdl > 40 Result Component 54(03/01/2024 9:54 AM CDT) No Leo Jama MD documented as of this encounter Procedures Procedure Name Priority Date/Time Associated Diagnosis Comments BLN ANESTHESIA ARTERIAL LINE LDA Routine 01/30/2025 9:48 AM CDT ANESTHESIA AIRWAY Routine 01/30/2025 9:2 7 AM CDT documented in this encounter Results * BLN ANESTHESIA ARTERIAL LINE LDA (01/30/2025 9:48 AM CDT) Narrative Ayo Gilmore CRNA - 01/30/2025 9:48 AM CDT Ayo Gilmore CRNA 01/30/2025 9:49 AM Line Placement Type of Line: Arterial line placed on the Left Radial Staffing Anesthesiologist: Collins Sanabria DO COTTON PULLER/AA: Ayo Gilmore CRNA Performed: Anesthesiologist Preanesthesia Checklist The following were addressed during the Anesthesia checklist: Patient identified, IV checked, Site marked, Risks and benefits discussed, Procedural consent, Monitors and equipment checked, Patient evaluation and Timeout performed. Risks discussed: Bleeding, Intravascular injection, Pneumothorax, Infection, Nerve injury, Seizure, Failure, Headache and Other. All patients' Anesthetic questions were answered. Consent given by: Patient Procedure details: Please refer to the MAR for medication administration. Preparation: Chlorhexidine Sterile barriers: Hat, Mask, Sterile gloves and Sterile gown Device placed: Arterial catheter Ultrasound guidance: was not used. Catheter Information: Catheter size: 20G Post-procedure: Sterile dressing applied. us Collins Sanabria DO ANESTHESIA ORDERABLES Velia l Result * BLN ANESTHESIA ETT LDA (01/30/2025 9:27 AM CDT) Narrative Ayo Gilmore CRNA - 01/30/2025 9:27 AM CDT Ayo Gilmore CRNA 01/30/2025 9:52 AM Airway Start Tme: 01/30/2025 9:27 AM Location: OR Urgency: Elective Difficult Airway: No difficult airway Staffing COTTON PULLER/AA: Ayo Gilmore CRNA Student COTTON PULLER / Other staff: marilyn muñoz Performed: Student COTTON PULLER/Other Indications and Patient Condition Indications for Airway Management: Surgery Patient status: Paralyzed and Unconscious Preoxygenation: BVM Spontaneous Ventilation: absent Medications Administered Please refer to the MAR for medication administration. Final Airway Details Final Airway Type: Endotracheal tube Ease of mask ventilation: easy Final Endotracheal Airway: NIM tube Cuffed: Yes Cuff Inflated: Yes Blade Type: Glidescope Laryngoscope Blade/Videolaryngoscope Blade Size: 4 ETT secured at (cm): 22 ETT secured at: Teeth Tube secured with: Tape Ease of Intubation: Easy Number of Attempts: 1 Special Maneuver Used: Stylet Placement Verified by: chest rise and ETCO2 monitor Cormack-Lehane Classification: Grade I - full view of glottis Breath sounds: Equal and Bilateral Patient tolerated the procedure well with no immediate complications. us Collins Sanabria DO ANESTHESIA ORDERABLES Velia roe Result documented in this encounter Visit Diagnoses Not on filedocumented in this encounter Administered Medications Inactive Administered Medications - up to 3 most recent administrations Medication Order MAR Action Action Date Dose Rate Site dexAMETHasone (DECADRON) 20 mg/5 mL injection Intravenous, as needed, Starting on Wed01/30/25 at 1001, Until Wed01/30/25 at 1146, Anesthesia Intraprocedure Given 01/30/2025 10:01 AM CDT 10 mg fentaNYL (SUBLIMAZE) 100 mcg/2 mL injection (preservative-free) Intravenous, as needed, Starting on Wed01/30/25 at 0924, Until Wed01/30/25 at 1146, Anesthesia Intraprocedure Given 01/30/2025 9:33 AM CDT 50 mcg Given 01/30/2025 9:24 AM CDT 50 mcg HYDROmorphone (DILAUDID) 1 mg/mL injection Intravenous, as needed, Starting on Wed01/30/25 at 0936, Until Wed01/30/25 at 1146, Anesthesia Intraprocedure Given 01/30/2025 10:01 AM CDT 0.5 mg Given 01/30/2025 9:36 AM CDT 0.5 mg labetalol (TRANDATE) IV Intravenous, as needed, Starting on Wed01/30/25 at 1036, Until Wed01/30/25 at 1146, Anesthesia Intraprocedure Given 01/30/2025 10:40 AM CDT 5 mg Given 01/30/2025 10:33 AM CDT 5 mg lactated ringers IVF Intravenous, at 25 mL/hr, continuous PRN, Starting on Wed01/30/25 at 0809, Until Wed01/30/25 at 1709, TKO Rate. Start IV on patients age 12 and older and/or if indicated. If local only anesthesia and no IV medications have been ordered, do not start an IV., Pre-op Continued by Anesthesia 01/30/2025 9:19 AM CDT 25 mL/hr New Bag 01/30/2025 8:55 AM CDT 25 mL/hr lidocaine (preservative-free) (XYLOCAINE) 1 % Intravenous, as needed, Starting on Wed01/30/25 at 0924, Until Wed01/30/25 at 1146, Anesthesia Intraprocedure Given 01/30/2025 9:24 AM CDT 50 mg ondansetron (ZOFRAN) injection Intravenous, as needed, Starting on Wed01/30/25 at 1105, Until Wed01/30/25 at 1146, Anesthesia Intraprocedure Given 01/30/2025 11:05 AM CDT 4 mg phenylephrine (VAZCULEP) 10 mg/mL injection Intravenous, as needed, Starting on Wed01/30/25 at 0943, Until Wed01/30/25 at 1146, Anesthesia Intraprocedure Given 01/30/2025 11:18 AM CDT 100 mcg Rate/Dose Changed 01/30/2025 11:07 AM CDT 10 mcg/min 0.06 mL/hr Given 01/30/2025 11:04 AM CDT 100 mcg propofol (DIPRIVAN) 200 mg/20 mL injection Intravenous, as needed, Starting on Wed01/30/25 at 0924, Until Wed01/30/25 at 1146, Anesthesia Intraprocedure Given 01/30/2025 9:30 AM CDT 20 mg Given 01/30/2025 9:24 AM CDT 180 mg rocuronium (ZEMURON) injection Intravenous, as needed, Starting on Wed01/30/25 at 0924, Until Wed01/30/25 at 1146, Anesthesia Intraprocedure Given 01/30/2025 9:24 AM CDT 10 mg succinylcholine (QUELICIN) injection Intravenous, as needed, Starting on Wed01/30/25 at 0924, Until Wed01/30/25 at 1146, Anesthesia Intraprocedure Given 01/30/2025 9:24 AM CDT 100 mg documented in this encounter Additional Health Concerns Assessment Noted Time PHQ-9 Depression Total Score: 0 01/16/20 25 4:37 PM CDT A fall risk assessment has been complete d for the patient 01/30/2025 8:14 AM CDT documented as of this encounter Care Teams Wet Wash Assembler Relationship Specialty Start Date End Date Leo Jama MD [address] [facility] [place] [address] PCP - General Internal Medicine 03/01/24 documented as of this encounter
--- OUTSIDE RECORDS SUMMARY | 2025-01-30 09:45 | XMS_ITS | Encounter Summary ---
Author Organization [facility] Address [address] [place] [address] Care Team Providers Care Director Sales And Trade Marketing Name Role Phone Leo Jama MD Primary Care Provider [phone] Reason for Visit * Auth/Cert - BLN (Routine) Specialty Diagnoses / Procedures Referred By Farshad cervantes Referred To Contact Diagnoses Primary hyperparathyroidism Hypercalcemia Primary hyperparathyroidism [E21.0] Hypercalcemia [E83.52] Procedures EXPLORE PARATHYROID GLANDS PARATHYROIDECTOMY / EXPLORATION OF PARATHYROID Referral ID Status Reason Start Date Expiration Date Visits Re quested Visits Authorized [id number] 10 10 Encounter Details Date Type Department Care Team (Late st Contact Info) Description 01/30/2025 9:45 AM CDT - 01/30/2025 1:09 PM CDT Surgery [facility] Periop [address] [place] [address] Melody Gutierrez MD [address] [place] [id number] LEFT PARATHYROIDECTOMY Surgery Details Date/Time Status Location OR Service Patient Class Case Class Case Type Trauma Case? 01/30/2025 9:45 AM Posted SURGERY [facility] ENT [address] [place] [address] ENT Day Surgery Elective Panel 1 Procedure LRB Anes Op Region Wound Class Comments LEFT PARATHYROIDECTOMY Left General NECK Clean ( 1) Surgeon Surgeon Role Service Panel Bradley Ruiz MD Assisting ENT 1 Melody Gutierrez MD Primary ENT 1 documented in this encounter Social History Tobacco Use Types Packs/Day Years Used Date Smoking Tobacco: Former Cigarettes 0 12/01/2022 - 02/19/1976 Passive Smoke Exposure: Never Smokeless Tobacco: Never Tobacco Cessation:Counseling Given: Not Answered Alcohol Use Standard Drinks/Week Comments Not Currently 0 (1 standard drink = 0.6 oz pur e alcohol) [facility] Utilities Answer Date Recorded In the past 12 months has th e electric, gas, oil, or water company threatened to [...] often do you attend chur ch or jain services? Never 03/01/2024 Do you belong to any clubs o r organizations such as sabianism groups, unions, fraternal or athletic groups, or [...] medical care, and heating? Somewhat hard 03/01/2024 [facility] - Occupational Stress [...] any time in the past 12 m [place], were you homeless or living in a fdc (including now)? 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 Gender Identity Not on file Sexual Orientation Not on file documented as of this encounter Last Filed Vital Signs Vital Sign Reading Time Taken Comments Blood Pressure 125/75 01/30/2025 1:00 PM CDT Pulse 76 01/30/2025 1:00 PM CDT Temperature 36.3 C (97.3 F) 01/30/2025 1:00 PM CDT Respiratory Rate 14 01/30/2025 1:00 PM CDT Oxygen Saturation 92% 01/30/2025 1:00 PM CDT Inhaled Oxygen Concentration - - [...] Stop using 2 weeks prior to surgery spooling supervisor your special cleansing soap chlorhexidine gluconate (Hibiclens??) from your surgeon's office, the Surgery Prepare Team, a [facility], or a local pharmacy. 2 Days Before Surgery Contact your surgeon's office MELODY GUTIERREZ M.D. - [phone] if you become illwith an infection, fever [...] use any lotion, powder, deodorant, makeup, nail canadian (including gel, acrylic, etc.), hair products (including [...] business day prior to your surgery date. [facility], [address] [place] [address]. Luncheonette Manager service is reserved for those patients and/or visitors with physical disabilities. If you and your visitor do not have any physical disabilities, please park your car in the [facility] parking lot and check in at our Lobby Senior Account Manager. Day of Surgery Please click this link for what to do the day of surgery Cleanse with the special chlorhexidine gluconate (Hibiclens??) soap given to you. Follow the: Preparing your Skin Before Surgery instruction sheet. Do not use any lotion, powder, deodorant, makeup, nail canadian (including gel, acrylic, etc.), hair products (including gel, hairspray, mousse), or perfumes/colognes. Do not wear any jewelry. Wear comfortable, clean, loose fitting clothes [place] your teeth and/or dentures. Do not swallow [...] bring to the hospital: Photo ID or motor vehicle escort driver's license Insurance cards (health and prescription) Anyone picking up prescription pain medication is required to show a picture ID. Please do not bring fontanez, jewelry, or valuables. They will be given to your caregiver or locked in the [facility] safe. [facility] is not responsible for lost or missing items. Your Advanced directive or Living Will if you have available and not already on file at hospital. Detailed Home Medication List in case it is needed for verification (which includes inhalers and eye drops, jsca-ewf-qadawxm medications, and herbals and/or supplements). SSC: Please [...] apply any lotions, powders, deodorant, makeup, nail canadian, hair products, or perfumes/colognes. After Surgery At [...] fluids to keep your urine pale yellow. Trsz-apq-roqymxu stool softeners or laxatives can help control [...] fruit juice). Low-calorie sports drinks. Eat bland, vwiz-ps-jcguku foods in small amounts: Bananas, Applesauce, Rice, Dillon/Crackers, Low-fat (lean) meats. Avoid drinking alcohol, sugary [...] of his associates cannot be reached go [facility] or call 911 Thank you for [facility] - or Wednesday through Wednesday, 8:00 a.m. - 5:00 p.m. (excluding holidays) * Attachments The following attachments cannot be sent through Care Everywhere. * Parathyroidectomy Care After (Syriac) * General Anesthesia Adult Care After (Syriac) documented in this encounter Medications at Time [...] as of this encounter H&P Notes * Melody Gutierrez MD - 01/30/2025 8:22 AM CDT History [...] consulting provider. Clinic note was made using Kwaab dictation software. There may be inadvertent wording [...] Gutierrez MD - 01/30/2025 3:09 PM CDT [facility] [phone] [facility] [address] Loc: [phone] PARATHYROIDECTOMY PROCEDURE NOTE NAME: [place] Ramsey AGE: [...] Melody Gutierrez MD & Minh Ruiz MD CASE SEALER: Geoff Matthews DNP ANESTHESIA: General endotracheal anesthesia [...] Gutierrez MD - 01/30/2025 11:04 AM CDT [facility] [phone] [facility] [address] Loc: [phone] PROCEDURE NOTE Pt Name: [place] Ramsey Age: [age] year old, : 1960 OR Date: 01/30/2025 Pre-operative Diagnosis: Primary hyperparathyroidism [E21.0] Hypercalcemia [E83.52] Procedure(s): Left - LEFT PARATHYROIDECTOMY - Wound Class: Clean (1) - Incision Closure: Deep and Superficial Layers Post-operative Diagnosis: Same as above Surgeon(s): Melody Gutierrez MD Gietman, Bradley T, MD Custodial Operations Manager: Geoff Matthews APNP Anesthesia: General Specimens: ID Type Source Tests Collected by Time A : left parathyroid gland Tissue Parathyroid SURGICAL SPECIMEN FOR PATH ([facility] ONLY) Melody Gutierrez MD 01/30/2025 1047 Blood [...] specialty history recorded Yes Cardiovascular Prob List: NV Prob List: A-fib Medical Hx: CHF Medical Hx: Anticoagulant use Home Meds: Anticoagulants, anti-thrombotic, or platelet inhibitors History Date Comments Unspecified essential hypertension Atrial flutter (*) CAD (coronary artery disease) stent 2017 Essential hypertension NV (myocardial infarction) (*) Chronic atrial fibrillation (*) post ablationdoing well Atherosclerotic heart disease of [place] coronary artery without angina pectoris Typical atrial flutter (*) 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 Yes Pulmonary [...] Info) Description 03/01/2025 9:50 AM CDT Lab/Non-Imaging [facility] [address] [place] [address] 03/02/2025 10:30 AM CDT Nurse Visit [facility] [address] [place] [address] 03/02/2025 11:00 AM CDT Office Visit [facility] [address] [place] [address] Leo Jama MD [address] [facility] [place] [address] 03/14/2025 9:10 AM CDT Lab/Non-Imaging [facility] [address] [place] [address] 03/21/2025 10:00 AM CDT Office Visit [facility] [address] [place] [phone] Stevan Roberson MD [address] [place] [address] [place] [phone] documented as of this encounter Goals [...] - 100 mg/dL 01/30/2025 11:55 AM CDT [facility] Blood, capillary 01/30/2025 11:49 AM CDT 01/30/2025 11:55 AM CDT Melody Gutierrez MD POINT OF CARE TEST ORDERABLES Final Result [facility] [address] [facility] [address] [address] [place] [address] * Intraoperative PTH,Blood-Surgery only (01/30/2025 11:10 AM CDT) PTH INTACT, INTRAOP 18.6 15.0 - 65.0 pg/mL 01/30/2025 11:52 AM CDT [facility] Blood (Blood, arterial line draw) Arterial Puncture / Unknown 01/30/2025 11:10 AM CDT 01/30/2025 11:13 AM CDT [facility] - 01/30/2025 11:52 AM CDT Samples [...] ORDERABLES Final Re sult Performing Organization Address [facility] de Phone Number [facility] [address] [address] * Intraoperative PTH,Blood-Surgery only (01/30/2025 11:00 AM CDT) PTH INTACT, INTRAOP 24.4 15.0 - 65.0 pg/mL 01/30/2025 11:25 AM CDT [facility] Blood (Blood, arterial line draw) Arterial Puncture / Unknown 01/30/2025 11:00 AM CDT 01/30/2025 11:03 AM CDT [facility] LABORATORY - 01/30/2025 11:25 AM CDT Samples [...] ORDERABLES Final Re sult Performing Organization Address [facility] Co de Phone Number [facility] [address] [facility] [phone] [place] [address] * Surgical Specimen for Pathology (01/30/2025 10:47 AM CDT) Case Report Surgical Pathology Report Case: [id number] Authorizing Provider: Melody Gutierrez MD Collected: 01/30/2025 1047 [facility]: 01/30/2025 1135 Periop Pathologist: Glen Alfaro MD Specimen: Parathyroid, left parathyroid gland 02/01/2025 6:38 PM CDT [facility] Final Diagnosis Parathyroid, left, parathyroidect jairo: - Cellular parathyroid (340 mg) compatible with chief cell adenoma. 02/01/2025 6:38 PM CDT [facility] at 1838 CDT Microscopic Description Microscopic findings support the final diagnosis. 02/01/2025 6:38 PM CDT [facility] Gross Description Received: Fresh, left parathyroid gland Number of pieces: One Color: Reeves Measurement: 0.34 g, 1.3 x 1.0 x 0.6 cm, bisected Cassettes: Entirely submitted in one cassette labeled A1. (JKB) 02/01/2025 6:38 PM CDT [facility] Special Attention Diagnosis No 02/01/2025 6:38 PM CDT [facility] Tissue PARATHYROID SPECIMEN / Unknown 01/30/2025 10:47 AM CDT 01/30/2025 11:35 AM CDT us Melody Gutierrez MD PATHOLOGY/CYTOLOGY ORDERABLES Final Result [facility] [address] [facility] [address] [place] [phone] * (ABNORMAL) Intraoperative PTH,Blood-Surgery only (01/30/2025 9:27 AM CDT) PTH INTACT, INTRAOP 67.7(H) 15.0 - 65.0 pg/mL 01/30/2025 9:52 AM [facility] Blood ARTERIAL BLOOD SPECIMEN / Unknown Arterial Puncture / Unknown 01/30/2025 9:27 AM CDT 01/30/2025 9:30 AM T [facility] LABORATORY - 01/30/2025 9:52 AM CDT Samples should not be taken from patients receiving therapy with high biotin doses until at least 8 hours following the last biotin administration. High biotin levels in patient samples may falsely increase or decrease the measured value. Patient heterophile antibodies may interfere with immunoassays, e.g. HAMA. us Melody Gutierrez MD LAB BLOOD ORDERABLES Final Re sult [facility] [address] [address] * (ABNORMAL) Complete Blood Ct No DIFF (01/30/2025 8:55 AM CDT) [facility] WBC COUNT 8.1 3.8 - 10.7 K/ul 01/30/2025 9:04 AM [facility] RBC COUNT 4.13(L) 4.21 - 5.75 M/ul 01/30/2025 9:04 AM [facility] HEMOGLOBIN 13.0(L) 13.5 - 17.5 g/dl 01/30/2025 9:04 AM [facility] HEMATOCRIT 38.2(L) 38.5 - 50.0 % 01/30/2025 9:04 AM [facility] MCV 92.5 80.0 - 100.0 fl 01/30/2025 9:04 AM [facility] MCH 31.5 28.2 - 34.7 pg 01/30/2025 9:04 AM [facility] MCHC 34.0 32.0 - 36.0 g/dl 01/30/2025 9:04 AM [facility] RDW 11.7 11.5 - 14.5 % 01/30/2025 9:04 AM [facility] PLATELET COUNT 211 150 - 450 K/ul 01/30/2025 9:04 AM [facility] Blood Venipuncture / Unknown 01/30/2025 8:55 AM CDT 01/30/2025 8:58 AM CDT us Alex Robledo MD LAB BLOOD ORDERABLES Final R esult [facility] [address] [facility] [address] [address] [place] [address] * (ABNORMAL) Comprehensive Metabolic Panel (01/30/2025 8:55 AM CDT) GLUCOSE 173(H) 70 - 100 mg/dL 01/30/2025 9:25 AM [facility] UREA NITROGEN 12 8 - 23 mg/dL 01/30/2025 9:25 AM [facility] CREATININE 0.95 0.70 - 1.20 mg/dL 01/30/2025 9:25 AM [facility] eGFR 89 >=60 mL/Min/1. 73 sqm 01/30/2025 9:25 AM [facility] Comment:Calculation based on the Chronic Kidney Disease Epidemiology Collaboration (CKD-EPI) equation refit without adjustment for race. SODIUM 139 136 - 145 mmol/L (mEq/L) 01/30/2025 9:25 AM [facility] POTASSIUM 4.3 3.5 - 5.1 mmol/L (mEq/L) 01/30/2025 9:25 AM [facility] CHLORIDE 109(H) 98 - 107 mmol/L (mEq/L) 01/30/2025 9:25 AM [facility] TOTAL CO2 21(L) 22 - 29 mmol/L (mEq/L) 01/30/2025 9:25 AM [facility] CALCIUM 10.7(H) 8.8 - 10.2 mg/dL 01/30/2025 9:25 AM [facility] TOTAL PROTEIN 6.5 6.4 - 8.3 g/dL 01/30/2025 9:25 AM [facility] ALBUMIN 4.2 4.0 - 4.9 g/dL 01/30/2025 9:25 AM [facility] BILIRUBIN, TOTAL 0.3 <=1.2 mg/dL 01/30/2025 9:25 AM [facility] SGOT/AST 47 10 - 50 U/L 01/30/2025 9:25 AM [facility] SGPT/ALT 80(H) 10 - 50 U/L 01/30/2025 9:25 AM [facility] ALK PHOSPHATASE 68 40 - 129 U/L 01/30/2025 9:25 AM [facility] ANION GAP 9.4 3.0 - 12.0 01/30/2025 9:25 AM [facility] Blood Venipuncture / Unknown 01/30/2025 8:55 AM CDT 01/30/2025 8:58 AM CDT us Alex Robledo MD LAB BLOOD ORDERABLES Final R esult [address] [address] * (ABNORMAL) Glucose, Whole Blood (01/30/2025 8:53 AM CDT) [facility] Glucose, POCT 160(H) 70 - 100 mg/dL 01/30/2025 9:01 AM T [facility] Blood, capillary 01/30/2025 8:53 AM CDT 01/30/2025 9:01 AM CDT us Melody Gutierrez MD POINT OF CARE TEST ORDERABLES Final Result [facility] [address] [address] documented in this encounter Visit Diagnoses Diagnosis Post-operative pain- Primary Other acute postoperative pain Primary hyperparathyroidism Hypercalcemia Primary hyperparathyroidism Hypercalcemia documented in this encounter [...] Wed01/30/25 at 1211, Until Wed01/30/25 at 1709, Slow IV push over 2 minutes every [...] at 1211, Until Wed01/30/25 at 1709, For over sedated patient: Every 60 seconds [...] body): urethra lidocaine-EPINEPHrine (XYLOCAINE-EPINEPHRINE) 1 %-1:100,000 injection as needed, Starting on Wed01/30/25 at 0930, Until Wed01/30/25 at 1125, Intra-op Given 01/30/2025 9:30 AM CDT 5 mL Incis ion meperidine (DEMEROL) 50 mg/mL injection 12.5 mg, [...] Wed01/30/25 at 1211, Until Wed01/30/25 at 170, PACU NaCl 0.9% (irrigation bottle/container) irrigation as needed, Starting on Wed01/30/25 at 0946, Until Wed01/30/25 at 1125, Intra-op Given 01/30/2025 9:46 AM CDT 1,000 mL naloxone (NARCAN) 0.4 mg/mL injection 0.04-0.08 mg, Intravenous, as needed, Starting on Wed01/30/25 at 1211, Until Wed01/30/25 at 1708, Dilute 0.4 mg (1 mL) ampule with [...] at 1211, Until Wed01/30/25 at 170, nausea/vomiting, Give if patient has not received [...] Wed01/30/25 at 1306, Until Wed01/30/25 at 170, mild pain, Not to exceed 2,600 mg in 24 hours., Post-op atropine 1 mg/10 mL injection 0.5 mg, Intravenous, once as needed today, 1 dose, Starting on Wed01/30/25 at 1211, Until Wed01/30/25 at 170, Give if glycopyrrolate not effective, PACU dexAMETHasone [...] at 1211, Until Wed01/30/25 at 1709, For over sedated patient: Every 60 seconds [...] at 1211, Until Wed01/30/25 at 1709, For symptomatic or profound bradycardia - notify [...] Until Wed01/30/25 at 1709, moderate pain, Post-op 1441 (Given - Provid er: Estefany Lagunas RN) HYDROmorphone HCl (DILAUDID) 0.2 MG/ML injection 0.2-0.4 mg, Intravenous, every 10 minutes as needed, 10 doses, Starting on Wed01/30/25 at 1211, Until Wed01/30/25 at 1709, May give 0.4mg X 1, then 0.2mg [...] 12.5 mg, Intravenous, as needed, Starting on 01/30/25 at 1211, Until 01/30/25 at 1709, SHIVERING ONLY. May repeat x1 after 10 minutes as needed for a maximum total dose of 25mg., Try alternative measures prior to administering meperidine (warming blanket, warm blankets, heat packs). Do not discharge patient until at least 30 minutes after last dose of opioid medication., PACU metoclopramide (REGLAN) 5 mg/mL injection 10 mg, Intravenous, as needed, Starting on 01/30/25 at 1211, Until 01/30/25 at 1709, nausea/vomiting, May repeat x1 in 15-30 minutes as needed persistent nausea/vomiting up to a max of 20 mg total Check with anesthesia before giving if the patient has Parkinson's disease and is on anti-Parkinson's medications., PACU morphine 2 mg/mL injection(Linked Group 1) 2 mg, Intravenous, every 10 minutes as needed, 5 doses, Starting on 01/30/25 at 1211, Until 01/30/25 at 1709, If allergy or intolerance to [...] every 2 hours as needed, Starting on 01/30/25 at 1306, Until 01/30/25 at 1709, moderate pain, Post-op morphine 4 mg/mL injection(Linked Group 1) 4 mg, Intravenous, every 10 minutes as needed, 5 doses, Starting on 01/30/25 at 1211, Until 01/30/25 at 1709, If allergy or intolerance to [...] Wed01/30/25 at 0809, Until Wed01/30/25 at 1709, Use for patients with renal failure, hyperkalemia, [...] Wed01/30/25 at 1306, Until Wed01/30/25 at 1709, Post-op NaCl 0.9% (irrigation bottle/container) [...] 0.1 mg, Intravenous, as needed, Starting on e 01/30/25 at 1306, Until 01/30/25 at 1709, every 2 minutes, For sedation score -4 to -5 or respiratory rate less than 10 breaths/min. Repeat every 2 minutes until sedation score is -3 with adequate respiratory rate and effort., Post-op ondansetron (ZOFRAN) injection 4 mg, Intravenous, once as needed today, 1 dose, Starting on Wed01/30/25 at 1211, Until 01/30/25 at 1709, nausea/vomiting, Give if patient has not received during surgery., PACU ondansetron (ZOFRAN) injection(Linked Group 2) 4 mg, Intravenous, every 6 hours as needed, Starting on e 01/30/25 at 1700, Until 01/30/25 at 1709, nausea/vomiting, Indications: Nausea and Vomiting, First Choice if patient has NOT received in past 6 hours. If 6 hours has passed since last dose of ondansetron and the patient is still nauseated, may repeat ondansetron dose, Post-op ondansetron (ZOFRAN) tablet(Linked Group 2) 4 mg, Oral, every 6 hours as needed, Starting on Wed01/30/25 at 1700, Until 01/30/25 at 1709, nausea/vomiting, Indications: Nausea and Vomiting, [...] documented as of this encounter Care Teams Director Sales And Trade Marketing Relationship Specialty Start Date End Date Leo Jama MD [address] [facility] [place] [address] PCP - General Internal Medicine 03/01/24 documented as of this encounter
--- OUTSIDE RECORDS SUMMARY | 2025-02-08 11:00 | XMS_ITS | Encounter Summary ---
Author Organization [facility], and Affiliates Address [address] [place] [address] Care Team Providers Care Pigment Grinder Name Role Phone Leo Jama MD Primary Care Provider [phone] Reason for Visit * Reason Comments POST OP Patient presents to the office for a post operative check after parathyroid surgery on 01/30/25. Patient reports things are feeling good. Patient states the he did not even need to take pain medication. Encounter Details Date Type Department Care Team (Latest Contact Info) Description 02/08/2025 11:00 AM CDT Office Visit [facility] [address] [place] [phone] Noelle Gutierrez MD [address] [place] [address] S/P parathyroidectomy (Primary Dx) Social History Tobacco Use Types Packs/Day Years Used Date Smoking Tobacco: Former Cigarettes 0 12/01/2022 - 02/19/1976 Passive Smoke Exposure: Never Smokeless Tobacco: Never Tobacco Cessation:Counseling Given: Not Answered Alcohol Use Standard Drinks/Week Comments Not Currently 0 (1 standard drink = 0.6 oz pur e alcohol) [facility] Utilities Answer Date Recorded In the past 12 months has [employer], gas, oil, or water company threatened [...] often do you attend chur ch or pentecostalism services? Never 03/01/2024 Do you belong to any clubs o r organizations such as jain groups, unions, fraternal or athletic groups, or [...] medical care, and heating? Somewhat hard 03/01/2024 [facility] - Occupational Stress Questionnaire [...] any time in the past 12 m [facility], were you homeless or living in a detention (including now)? 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 He has been doing well. He's had little to no pain; he did not require any narcotic pain medications. No dysphagia. He thinks his brain fog and fatigue are slowly improving. His steri strip came off 4 days ago. He is to get labs drawn per Dr. Roberson in March. Intra-op PTH: 67.7 -> 24.4 -> 18.6 EXAM: GENERAL: Patient is alert, oriented, NAD. Face is symmteric. Voice is strong. NOSE: Septum is midline. Turbinates are not hypertrophic. ORAL CAVITY: Moist mucosal membranes. NECK: Incision is well-approximated. Neck is soft and flat. RESPIRATORY: Patient is breathing comfortably on room air. No stridor or stertor present. PATHOLOGY: Final Diagnosis Parathyroid, left, parathyroidectomy: - Cellular parathyroid (340 mg) compatible with chief cell adenoma. ASSESSMENT & PLAN: 1. S/P parathyroidectomy Overall, he is doing very well after recent minimally invasive left parathyroidectomy with no concerns. We review pathology. Discussed importance of sunscreen. To initiate gentle massage. He is scheduled for labs with Dr. Roberson in March. Encouraged to call with any questions or concerns at any time. Follow up if symptoms worsen or fail to improve. Documenting and scribing by Jordyn Louis RN on behalf of Noelle Gutierrez MD. Reviewed and approved by Noelle Gutierrez MD. documented in this encounter Plan of Treatment Upcoming Encounters Date Type Department Care Team (Late st Contact Info) Description 03/01/2025 9:50 AM CDT Lab/Non-Imaging [facility] [address] [place] [address] 03/02/2025 10:30 AM CDT [facility] [address] [place] [address] 03/02/2025 11:00 AM CDT Office Visit [facility] [address] [place] [address] Leo Jama MD [address] [facility] [place] [place] [address] 03/14/2025 9:10 AM CDT Lab/Non-Imaging [facility] [address] [place] [address] 03/21/2025 10:00 AM CDT Office Visit [facility] Endocrinology [address] [place] [phone] Stevan Roberson MD [address] [place] [address] [place] [phone] documented as of this encounter Goals Goal Patient Goal Type Associated Problems Recent Progress Patient-Stated? Author Blood Pressure < 140/90 Blood Pressure 124/66(2024 2:28 PM CDT) No Leo Jama MD hdl > 40 Result Component 54(03/01/2024 9:54 AM CDT) No Leo Jama MD documented as of this encounter Visit Diagnoses Diagnosis S/P parathyroidectomy- Primary Other postprocedural status documented in this encounter Additional Health Concerns Assessment Noted Time PHQ-9 Depression Total Score: 0 01/16/20 25 4:37 PM CDT A fall risk assessment has been complete d for the patient 01/30/2025 8:14 AM CDT documented as of this encounter Care Teams Pigment Grinder Relationship Specialty Start Date End Date Leo Jama MD [address] [facility] [place] [address] PCP - General Internal Medicine 03/01/24 documented as of this encounter
[2025-02-11 19:13] VITALS: BP 131/72; PULSE 76; RESP 20; TEMP 36.5; O2SAT 96; BMI 27.5
--- NOTE | 2025-02-11 19:17 | ED_ITS ---
HPI - General Adult General Date Seen: 02/11/25 Chief complaint: Laceration/Wound Stated complaint: R hand lac Time Seen by Provider: 02/11/25 19:15 History of Present Illness HPI narrative: 64 yo M presenting to the ER this evening for evaluation of a right thumb laceration which he sustained by cutting on the edge of a sharp 10 can. He had some non pulsatile bleeding from the thumb that was controlled prior to arrival. Patient is unsure of his last tetanus but suspect it was probably 8 or 10 years ago. He is not sure and would be willing to except a tetanus booster today. He was at a [employer] with his family. He was putting away the trash and when he pushed the bag of trash down into the trash bin there was an open can from baked beans that cut the edge of his right thumb. He suffered a laceration on the ulnar border of the right thumb, just proximal to the IP joint. It had dark red brisk venous oozing that was controlled by direct pressure. Patient is surprised how easily he was able to control the bleeding because he is on Eliquis for history of heart problems. He has a history of diabetes, controlled with glipizide. He has a history of AFib and is on Eliquis for stroke prophylaxis and amiodarone for work control. He also history of coronary disease but does not take Plavix. He is not otherwise immunosuppressed. No history of cancer chemo. Related Data Home Medications ?Medication ?Instructions ?Recorded ?Confirmed amiodarone 200 mg tablet 200 mg PO DAILY 02/11/2504/30 apixaban 5 mg tablet (Eliquis) 5 mg PO BID 02/11/25 atorvastatin 80 mg tablet 80 mg PO DAILY 02/11/2504/30 atorvastatin 80 mg tablet 80 mg PO DAILY 02/11/2504/30 carvedilol 6.25 mg tablet 6.25 mg PO BID 02/11/2504/30 glipizide 10 mg tablet 10 mg PO BID 02/11/25 glipizide 10 mg tablet, extended 10 mg PO BID 02/11/25 02/11/25 release 24 hr losartan 100 mg tablet 100 mg PO DAILY 02/11/2504/30 potassium citrate 10 mEq (1,080 10 meq PO BID 02/11/25 02/11/25 mg) tablet,extended release rosuvastatin 40 mg tablet 40 mg PO DAILY 02/11/2504/30 trazodone 150 mg tablet 150 mg PO QHS PRN 02/11/25 0 02/11/25 trazodone 150 mg tablet 150 mg PO QPM 02/11/2502/11 Allergies Allergy/AdvReac Type Severity Reaction Status Date / Time Penicillins Allergy Severe Anaphylaxis Verified 02/11/25 19:18 [facility] Social History Smoking Status: Never smoker How often do you have a drink containing alcohol: never AUDIT-C Alcohol total score: 0 Non-prescribed substance use: denies use Exam Narrative: Exam Narrative: Constitutional: Appears well-developed and well-nourished. Active. Non-toxic appearing. Very polite. HENT: Head: Atraumatic. No signs of injury. Nose: No nasal discharge. Mouth/Throat: Mucous membranes are moist. Pharynx is normal. Tonsils symmetric. Uvula midline. Airway patent. Eyes: Conjunctivae normal and EOM are normal. Pupils are equal, round, and reactive to light. Right eye exhibits no discharge. Left eye exhibits no discharge. No icterus. Neck: Normal range of motion. Neck supple. No adenopathy. No stridor. Cardiovascular: Normal rate and regular rhythm. No murmur heard. No murmurs, rubs, or gallops. Brisk capillary refill Pulmonary/Chest: Effort normal. No stridor. No respiratory distress. No retractions. Musculoskeletal: Patient is normal except for his right thumb- Normal range of motion. No edema. No tenderness. No deformity. Right upper extremity: Shoulder, humerus, elbow, forearm, wrist are normal. Hand is normal except for the right thumb. There is a 2 cm linear laceration on the ulnar border of the thumb that is just proximal to the IP joint. After local anesthesia the wound is visualized in a bloodless field I do not see an evidence for retained foreign body. No evidence that the laceration affects the extensor or flexor tendons. Laceration does not seem to involve the IP joint space. Laceration does penetrate through the epidermis, dermis, and into the subcutaneous tissue. No active bleeding. Intact radial and ulnar digital nerve function. Normal IP flexion and extension. Neurological: Alert. Normal strength. No cranial nerve deficit or sensory deficit. Coordination normal. GCS eye subscore is 4. GCS verbal subscore is 5. GCS motor subscore is 6. Skin: Skin is warm. No rash noted. Const: Vital Signs, click to edit/add: Vital Signs - 24 hr 02/11/25 19:13 Temperature 97.7 F Pulse Rate [Pulse Oximeter] 76 Respiratory Rate 20 Blood Pressure [Ri ght Upper Arm] 131/72 Pulse Oximetry 96 Oxygen Delivery Me thod Room Air Course Vital Signs Vital signs: Initial Vital Signs Temperature 97.7 F 02/11/25 19:13 Temperature Source Temporal Artery Scan 02/11/25 19:13 Pulse Rate 76 02/11/25 19:13 Respiratory Rate 20 02/11/25 19:13 Blood Pressure 131/72 02/11/25 19:13 Blood Pressure Mean 91 02/11/25 19:13 Pulse Oximetry 96 02/11/25 19:13 Oxygen Delivery Method Room Air 02/11/25 19:13 Vital Signs Temperature 97.7 F 02/11/25 19:13 Pulse Rate 76 02/11/25 19:13 Respiratory Rate 20 02/11/25 19:13 Blood Pressure 131/72 02/11/25 19:13 Pulse Oximetry 96 02/11/25 19:13 Oxygen Delivery Method Room Air 02/11/25 19:13 Temperature 97.7 F 02/11/25 19:13 Pulse Rate 76 02/11/25 19:13 Respiratory Rate 20 02/11/25 19:13 Blood Pressure 131/72 02/11/25 19:13 Pulse Oximetry 96 02/11/25 19:13 Oxygen Delivery Method Room Air 02/11/25 19:13 Medical Decision Making MDM Narrative Medical decision making narrative: Findings and exam are consistent with an uncomplicated laceration which was repaired as noted above. There is no evidence at this time to suggest any associated fracture or foreign body. There is no evidence to suggest tendon or arterial injury and patient is neurologically in tact. The patient is to follow up for suture removal as instructed in 10 days. Indications to seek urgent reevaluation and signs of infection (including but not limited to increasing pain, redness, swelling, fevers, and drainage) were reviewed. Patient is unsure of his tetanus status and since he has previously lived in [place] and [place], we do not have his tetanus record here in [place]. Patient is updated tonight.. This is a clean and non-contaminated wound in which prophylactic antibiotics are not indicated. An understanding of the discharge instructions and need for follow up were verbally confirmed. Discharge Plan Discharge Clinical Impression: Laceration of right thumb Patient Disposition: Home, Self-Care Condition: Stable Instructions: Finger Laceration (ED) Additional Instructions: As we discussed, beginning tomorrow or Wednesday morning it is located take the dressing off once per day. After the dressing is off inspect the wound for signs of infection. If the wound has blood or scabbed over is dirty, wash gently with a warm wet gauze or washcloth. After the wound is clean. Roseann dry with clean gauze or let it air dry. After it is dry reapply a small amount of antibiotic ointment. Reapply dressing to cover the wound and stitches after you clean the wound. While the stitches are in, avoid getting the wound wet. Do not submerge underwater. For instance, do not do the dishes. Watch for signs of infection such as redness, swelling, pus, or red streaks spreading from your wound. If you have any concerns, return to the ER or see your doctor right away. Please follow-up with your doctor in 10 days to have the sutures removed. Prescriptions: No Action glipizide 10 mg tablet 10 mg PO BID trazodone 150 mg tablet 150 mg PO QHS PRN atorvastatin 80 mg tablet 80 mg PO DAILY atorvastatin 80 mg tablet 80 mg PO DAILY carvedilol 6.25 mg tablet 6.25 mg PO BID amiodarone 200 mg tablet 200 mg PO DAILY glipizide 10 mg tablet extended release 24hr 10 mg PO BID potassium citrate 10 mEq (1,080 mg) tablet extended release 10 meq PO BID trazodone 150 mg tablet 150 mg PO QPM losartan 100 mg tablet 100 mg PO DAILY rosuvastatin 40 mg tablet 40 mg PO DAILY Eliquis 5 mg tablet 5 mg PO BID Follow Up/Referrals: Alfonzo Valdivia MD [Primary Care Provider, Family Practice] Stand Alone Forms: [facility] Info Instructions Procedures Laceration Right thumb laceration: Pre procedure diagnosis: Right thumb laceration Verification/time out: correct patient and correct site Site: hand (Right thumb 2 cm laceration) Side (If applicable): right Size (cm): 2 Description: linear Depth: simple, single layer Local Anesthetic: bupivacaine 0.25% (Digital block using 3 mL of 0. Two 5% bupivacaine without epi) Amount of anesthesia used (mL): 3 Pre-repair: wound explored Skin layer closed with: nylon Size (cm): 5-0 Number of sutures: 5 Technique: simple, interrupted
--- OUTSIDE RECORDS SUMMARY | 2025-02-11 20:35 | XMS_ITS | Encounter Summary ---
Author Organization [facility], and Affiliates Address [address] [place] [address] Care Team Providers Care Publication Specialist Name Role Phone Leo Jama MD Primary Care Provider [phone] Reason for Visit * Reason Onset Date Comments Surgery 01/15/2025 01/30/2025 PARATH YROIDECTOMY / EXPLORATION OF PARATHYROID Noelle Gutierrez MD Encounter Details Date Type Department Care Team (Late st Contact Info) Description 01/15/2025 Telephone [facility]-Prepare Team [address] [place] [address] Mattie Farfan RN Surgery (01/30/2025 PARATHYROIDECTOMY / EXPLORATION OF PARATHYROID Noelle Gutierrez MD) Social History Tobacco Use Types Packs/Day Years Used Date Smoking Tobacco: Former Cigarettes 0 12/01/2022 - 02/19/1976 Passive Smoke Exposure: Never Smokeless Tobacco: Never Alcohol Use Standard Drinks/Week Comments Not Currently 0 (1 standard drink = 0.6 oz pur e alcohol) [facility] Utilities Answer Date Recorded In the past 12 months has [employer] electric, gas, oil, or water company threatened [...] often do you attend chur ch or restoration services? Never 03/01/2024 Do you belong to any clubs o r organizations such as islam groups, unions, fraternal or athletic groups, or [...] heating? 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 * Telephone Encounter - Mattie Farfan RN - 01/15/2025 4:24 PM CDT Call to patient to complete database for Surgery on 01/30/25, message left for patient to call back. documented in this encounter Plan of Treatment Upcoming Encounters Date Type Department Care Team (Late st Contact Info) Description 03/01/2025 9:50 AM CDT Lab/Non-Imaging [facility] [address] [place] [address] 03/02/2025 10:30 AM CDT Nurse Visit [facility] [address] [place] [address] 03/02/2025 11:00 AM CDT Office Visit [facility] [address] [place] [address] Leo Jama MD [address] [place] [address] 03/14/2025 9:10 AM CDT Lab/Non-Imaging [facility] [address] [place] [address] 03/21/2025 10:00 AM CDT Office Visit [facility] Endocrinology [address] [place] [address] Stevan Roberson MD [address] [place] [address] [place] [phone] documented as of this encounter Goals Goal Patient Goal Type Associated Problems Recent Progress Patient-Stated? Author Blood Pressure < 140/90 Blood Pressure 124/66(2024 2:28 PM CDT) No Leo Jama MD hdl > 40 Result Component 54(03/01/2024 9:54 AM CDT) No Leo Jama MD documented as of this encounter Visit Diagnoses Not on filedocumented in this encounter Additional Health Concerns Assessment Noted Time PHQ-9 Depression Total Score: 0 01/16/20 25 4:37 PM CDT A fall risk assessment has been complete d for the patient 04/04/2024 7:08 AM CDT documented as of this encounter Care Teams Publication Specialist Relationship Specialty Start Date End Date Leo Jama MD [address] [facility] [address] PCP - General Internal Medicine 03/01/24 documented as of this encounter
--- OUTSIDE RECORDS SUMMARY | 2025-02-11 20:35 | XMS_ITS | Encounter Summary ---
Author Organization [facility] and [facility] Address [address] [place] [address] Care Team Providers Care Ice Scraper Name Role Phone Leo Jama MD Primary Care Provider [phone] Reason for Referral * Consultation (Routine) - Closed Specialty Diagnoses / Procedures Referred By Farshad cervantes Referred To Contact ENT-Otolaryngology Diagnoses Hyperparathyroidism Hypercalcemia Osteopenia, unspecified location Stevan Roberson MD [address] [place] [address] [place] [phone] Phone: tel: fax: Noelle Gutierrez MD [address] [place] [phone] Phone: tel: fax: Referral ID Status Reason Start Date Expiration Date V isits Requested Visits Authorized [id number] Closed Specialty Services Required 12/19/2024 06/20/2025 1 1 Question Answer Reason for referral: hypercalcemia due to primary hyperparathyroid with osteopenia, normal urine calcium with neg parathyroid scan but positive ct 4d. Additional clinical information: US thyroid subsentimeter thyroid nodule for eval and treat Reason for Visit * Reason Onset Date Comments Referral Requested 12/14/2024 Encounter Details Date Type Department Care Team (Late st Contact Info) Description 12/14/2024 Telephone [facility] Endocrinology [address] [place] [phone] Stevan Roberson MD [address] [place] [address] [place] [address] Referral Requested Social History Tobacco Use Types Packs/Day Years Used Date Smoking Tobacco: Former Cigarettes 0 12/01/2022 - 02/19/1976 Passive Smoke Exposure: Current Smokeless Tobacco: Never Alcohol Use Standard Drinks/Week Comments Yes 1.7 (1 standard drink = 0.6 oz p ure alcohol) [facility] Utilities Answer Date Recorded In the past 12 months has [employer], gas, oil, or water [employer] threatened to shut off services in your [...] often do you attend chur ch or episcopalian services? Never 03/01/2024 Do you belong to any clubs o r organizations such as gnosticism groups, unions, fraternal or athletic groups, or [...] medical care, and heating? Somewhat hard 03/01/2024 [facility] [place] of Occupat ional Health - Occupational Stress [...] any time in the past 12 m [facility], were you homeless or living in a jail (including now)? 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 * Telephone Encounter - Spencer Ventura RN - 12/21/2024 1:11 PM CDT Pls move the follow up date instead of january to after surgery with prior labs cmp pth vit d . Referral sent and sent a my chart message RN spoke with patient and he is scheduled to see Dr. Gutierrez on January 04. He will call the office with the date of his surgery so we can schedule his follow up with Dr. Roberson. * Telephone Encounter - Spencer Vetnura RN - 12/14/2024 2:55 PM CDT RN spoke with patient regarding his results and patient prefers a referral to Dr. Gutierrez with [facility]. documented in this encounter Plan of Treatment Upcoming Encounters Date Type Department Care Team (Late st Contact Info) Description 03/01/2025 9:50 AM CDT Lab/Non-Imaging [facility] [address] [place] [address] 03/02/2025 10:30 AM CDT Nurse Visit [facility] [address] [place] [address] 03/02/2025 11:00 AM CDT Office Visit [facility] [address] [place] [address] Leo Jama MD [address] [place] [address] 03/14/2025 9:10 AM CDT Lab/Non-Imaging [facility] [address] [place] [address] 03/21/2025 10:00 AM CDT Office Visit [facility] Endocrinology [address] [place] [address] Stevan Roberson MD [address] [place] [address] [place] [phone] documented as of this encounter Goals Goal Patient Goal Type Associated Problems Recent Progress Patient-Stated? Author Blood Pressure < 140/90 Blood Pressure 124/66(2024 2:28 PM CDT) No Leo Jama MD hdl > 40 Result Component 54(03/01/2024 9:54 AM CDT) No Leo Jama MD documented as of this encounter Visit Diagnoses Diagnosis Hyperparathyroidism- Primary Hyperparathyroidism, unspecified Hypercalcemia Osteopenia, unspecified location documented in this encounter Additional Health Concerns Assessment Noted Time PHQ-9 Depression Total Score: 0 03/22/20 11:01 AM CDT A fall risk assessment has been complete d for the patient 04/04/2024 7:08 AM CDT documented as of this encounter Care Teams Ice Scraper Relationship Specialty Start Date End Date Leo Jama MD [address] [place] [address] PCP - General Internal Medicine 03/01/24 documented as of this encounter
--- OUTSIDE RECORDS SUMMARY | 2025-02-11 20:35 | XMS_ITS | Encounter Summary ---
Author Organization [facility], and Affiliates Address [address] [place] [address] Care Team Providers Care Matrix Bath Operator Name Role Phone Leo Jama MD Primary Care Provider [phone] [phone] Encounter Details Date Type Department Care Team (Latest Contact Info) Description 01/30/2025 Travel Social History Tobacco Use Types Packs/Day Years Used Date Smoking Tobacco: Former Cigarettes 0 12/01/2022 - 02/19/1976 Passive Smoke Exposure: Never Smokeless Tobacco: Never Alcohol Use Standard Drinks/Week Comments Not Currently 0 (1 standard drink = 0.6 oz pur e alcohol) [facility] Utilities Answer Date Recorded In the past 12 months has e electric, gas, oil, or water company [...] any clubs o r organizations such as zoroastrian groups, unions, fraternal or athletic groups, or [...] medical care, and heating? Somewhat hard 03/01/2024 [facility] [place] of Occupat ional Health - Occupational Stress [...] any time in the past 12 m [facility], were you homeless or living in a correction (including now)? 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 [address] 03/14/2025 9:10 AM CDT Lab/Non-Imaging [facility] [address] [place] [address] 03/21/2025 10:00 AM CDT Office Visit [facility] [address] [place] [address] [phone] Stevan Roberson MD [address] [place] [address] [place] [address] [phone] documented as of this encounter Goals Goal [...] documented as of this encounter Care Teams Matrix Bath Operator Relationship Specialty Start Date End Date Leo Jama MD [address] [facility] [place] [address] PCP - General Internal Medicine 03/01/24 documented as of this encounter
--- OUTSIDE RECORDS SUMMARY | 2025-02-11 20:35 | XMS_ITS | Encounter Summary ---
Author Organization [facility] Address [address] [place] [address] Care Team Providers Care Systems Management Consultant Name Role Phone Leo Jama MD Primary Care Provider [phone] Reason for Visit * Reason Onset Date Comments Schedule Appointment/ Procedure 01/19/2025 MTM appt Encounter Details Date Type Department Care Team (Late st Contact Info) Description 01/19/2025 Telephone [facility] [address] [place] [address] Johanna Ivy, PharmD [address] [place], [place] [phone] Schedule Appointment/ Procedure (MTM appt) Social History Tobacco Use Types Packs/Day Years Used Date Smoking Tobacco: Former Cigarettes 0 12/01/2022 - 02/19/1976 Passive Smoke Exposure: Never Smokeless Tobacco: Never Alcohol Use Standard Drinks/Week Comments Not Currently 0 (1 standard drink = 0.6 oz pur e alcohol) [facility] Utilities Answer Date Recorded In the past 12 months has the [employer] electric, gas, oil, or water company threatened [...] often do you attend chur ch or hindu services? Never 03/01/2024 Do you belong to any clubs o r organizations such as amish groups, unions, fraternal or athletic groups, or [...] medical care, and heating? Somewhat hard 03/01/2024 [facility] [place] of Occupat ional Health - Occupational Stress [...] any time in the past 12 m [facility], were you homeless or living in a half-way (including now)? 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 Called patient and patient politely declined scheduling an MTM appt. He reports he's good with his medications. If he changes his mind, he can let PCP know. Nothing further needed at this time. * Telephone Encounter - Johanna Ivy PharmD - 01/19/2025 10:59 AM CDT Background: Your patient, [place], was identified by [facility] as being a potential good candidate for a Medication Therapy Management (MTM) appointment. The appointment is NO COST to the patient. Assessment: Reasons patient may be a good candidate include: Answer patient medication questions/concerns Multiple complex disease states Perform medication reconciliation Recommendation: Would recommend patient see pharmacist for a MTM appointment. [employer] message sent to patient to see if he's interested in scheduling an MTM appt. Thank You, Johanna Ivy PharmD [facility] Ambulatory Pharmacist [facility]: Kellen Sahu [facility] Pharmacist - Medication Management documented in this encounter Plan of Treatment Upcoming Encounters Date Type Department Care Team (Late st Contact Info) Description 03/01/2025 9:50 AM CDT Lab/Non-Imaging [facility] [address] [place] [address] 03/02/2025 10:30 AM CDT Nurse Visit [place] [address] [place] [address] 03/02/2025 11:00 AM CDT Office Visit [place] [address] [place] [address] Leo Jama MD [address] [facility] [place] [address] 03/14/2025 9:10 AM CDT Lab/Non-Imaging [place] [address] [place] [address] 03/21/2025 10:00 AM CDT Office Visit [facility] Endocrinology [address] [place] [phone] Stevan Roberson MD [address] [place] [address] [place] [address] [phone] documented as of this encounter Goals Goal [...] documented as of this encounter Care Teams Systems Management Consultant Relationship Specialty Start Date End Date Leo Jama MD [address] [facility] [place] [address] PCP - General Internal Medicine 03/01/24 documented as of this encounter
--- OUTSIDE RECORDS SUMMARY | 2025-02-11 20:35 | XMS_ITS | Encounter Summary ---
Author Organization [facility], and Affiliates Address [address] [place] [address] Care Team Providers Care Patient Relations Liaison Name Role Phone Leo Jama MD Primary Care Provider [phone] Encounter Details Date Type Department Care Team (Latest Contact Info) Description 01/11/2025 Travel Social History Tobacco Use Types Packs/Day Years Used Date Smoking Tobacco: Former Cigarettes 0 12/01/2022 - 02/19/1976 Passive Smoke Exposure: Current Smokeless Tobacco: Never Alcohol Use Standard Drinks/Week Comments Not Currently 1.7 (1 standard drink = 0.6 oz p ure alcohol) [facility] Utilities Answer Date Recorded In the past 12 months has [employer] electric, gas, oil, or water [employer] threatened to shut off services in your [...] often do you attend chur ch or voodoo services? Never 03/01/2024 Do you belong to any clubs o r organizations such as judaism groups, unions, fraternal or athletic groups, or [...] medical care, and heating? Somewhat hard 03/01/2024 [facility] [place] of Occupat ional Health - Occupational Stress [...] any time in the past 12 m [facility], were you homeless or living in a group home (including now)? 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 [address] [place] [address] 03/02/2025 11:00 AM CDT Office Visit [place] [address] [place] [address] Leo Jama MD [address] [place] [address] 03/14/2025 9:10 AM CDT Lab/Non-Imaging [facility] [address] [place] [address] 03/21/2025 10:00 AM CDT Office Visit [facility] Endocrinology [address] [place] [address] [phone] Stevan Roberson MD [address] [place] [address] [place] [phone] documented as of this encounter Goals Goal [...] documented as of this encounter Care Teams Patient Relations Liaison Relationship Specialty Start Date End Date Leo Jama MD [address] [place] [address] PCP - General Internal Medicine 03/01/24 documented as of this encounter
--- OUTSIDE RECORDS SUMMARY | 2025-02-11 20:35 | XMS_ITS | Encounter Summary ---
Author Organization [facility], and [facility]ates Address [address] [place] [address] Care Team Providers Care Cost Accounting Clerk Name Role Phone Leo Jama MD Primary Care Provider [phone] [phone] Reason for Visit * Reason Comments Refill Request Encounter Details Date Type Department Care Team (Late st Contact Info) Description 02/06/2025 Refill [facility] [address] [place] [address] Leo Jama MD [address] [facility] [place] [place] [address] Refill Request Social History Tobacco Use Types Packs/Day Years Used Date Smoking Tobacco: Former Cigarettes 0 12/01/2022 - 02/19/1976 Passive Smoke Exposure: Never Smokeless Tobacco: Never Alcohol Use Standard Drinks/Week Comments Not Currently 0 (1 standard drink = 0.6 oz pur e alcohol) [facility] Utilities Answer Date Recorded In the past 12 months has [employer], gas, oil, or water [employer] threatened to shut off services in your [...] week 03/01/2024 How often do you attend [facility] or congregational services? Never 03/01/2024 Do you belong to [...] medical care, and heating? Somewhat hard 03/01/2024 [facility] [place] of Occupat ional Health - Occupational Stress [...] any time in the past 12 m [facility], were you homeless or living in a [place] [facility] [place] facility (including now)? 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 Refilled for 90 days with 4 refills. Next Appointment: Future Appointments Date Time Provider Department Center 02/08/2025 11:00 AM Noelle Gutierrez MD ENT/AUD [facility] 03/01/2025 9:50 AM [facility] 03/02/2025 10:30 AM [facility] 03/02/2025 11:00 AM Leo Jama MD [facility] 03/14/2025 9:10 AM [facility] 03/21/2025 10:00 AM [facility] documented in this encounter Plan of Treatment Upcoming Encounters Date Type Department Care Team (Late st Contact Info) Description 03/01/2025 9:50 AM CDT Lab/Non-Imaging [facility] [place] [address] 03/02/2025 10:30 AM CDT Nurse Visit [facility] [place] [address] 03/02/2025 11:00 AM CDT Office Visit [facility] [address] [place] [address] Leo Jama MD [address] [place] [address] 03/14/2025 9:10 AM CDT Lab/Non-Imaging [facility] [address] [place] [address] 03/21/2025 10:00 AM CDT Office Visit [facility] Endocrinology [address] [place] [phone] Stevan Roberson MD [address] [place] [address] [place] [address] [phone] documented as of this encounter Goals Goal Patient Goal Type Associated Problems Recent Progress Patient-Stated? Author Blood Pressure < 140/90 Blood Pressure 124/66(2024 2:28 PM CDT) No Leo Jama MD hdl > 40 Result Component 54(03/01/2024 9:54 AM CDT) No Leo Jama MD documented as of this encounter Visit Diagnoses Diagnosis Hyperlipidemia, unspecified hyperlipidemia type documented in this encounter Additional Health Concerns Assessment Noted Time PHQ-9 Depression Total Score: 0 01/16/20 25 4:37 PM CDT A fall risk assessment has been complete d for the patient 01/30/2025 8:14 AM CDT documented as of this encounter Care Teams Cost Accounting Clerk Relationship Specialty Start Date End Date Leo Jaam MD [address] [place] [address] PCP - General Internal Medicine 03/01/24 documented as of this encounter
--- OUTSIDE RECORDS SUMMARY | 2025-02-11 20:35 | XMS_ITS | Encounter Summary ---
Author Organization [facility], and [facility] Address [address] [place] [address] Care Team Providers Care Green Jobs Trainer Name Role Phone Leo Jama MD Primary Care Provider [phone] [phone] Reason for Visit * Reason Comments Refill Request Encounter Details Date Type Department Care Team (Late st Contact Info) Description 02/02/2025 Refill [facility] [address] [place] [address] Leo Jama MD [address] [place] [address] Refill Request Social History Tobacco Use Types Packs/Day Years Used Date Smoking Tobacco: Former Cigarettes 0 12/01/2022 - 02/19/1976 Passive Smoke Exposure: Never Smokeless Tobacco: Never Alcohol Use Standard Drinks/Week Comments Not Currently 0 (1 standard drink = 0.6 oz pur e alcohol) [facility] Utilities Answer Date Recorded In the past 12 months has [employer], gas, oil, or water [employer] threatened to shut off services in your [...] week 03/01/2024 How often do you attend [facility] or anabaptism services? Never 03/01/2024 Do you belong to any clubs o r organizations such as religion groups, unions, fraternal or athletic groups, or [...] medical care, and heating? 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 Refilled for 90 days with 4 refills. Next Appointment: Future Appointments Date Time Provider Department Center 02/08/2025 11:00 AM Noelle Gutierrez MD ENT/AUD [facility] 03/01/2025 9:50 AM [facility] 03/02/2025 10:30 AM [facility] 03/02/2025 11:00 AM Leo Jama MD [facility] 03/14/2025 9:10 AM [facility] 03/21/2025 10:00 AM [facility] documented in this encounter Plan of Treatment Upcoming Encounters Date Type Department Care Team (Late st Contact Info) Description 03/01/2025 9:50 AM CDT Lab/Non-Imaging [facility] [place] [address] 03/02/2025 10:30 AM CDT Nurse Visit [facility] [place] [address] 03/02/2025 11:00 AM CDT Office Visit [facility] [address] [place] [address] Leo Jama MD [address] [place] [address] 03/14/2025 9:10 AM CDT Lab/Non-Imaging [facility] [address] [place] [address] 03/21/2025 10:00 AM CDT Office Visit [facility] Endocrinology [address] [place] [phone] Stevan Roberson MD [address] [place] [address] [place] [address] documented as of this encounter Goals [...] documented as of this encounter Care Teams Green Jobs Trainer Relationship Specialty Start Date End Date Leo Jama MD [address] [place] [address] PCP - General Internal Medicine 03/01/24 documented as of this encounter
--- OUTSIDE RECORDS SUMMARY | 2025-02-11 20:35 | XMS_ITS | Encounter Summary ---
Author Organization [facility], and Affiliates Address [address] [place] [address] Care Team Providers Care Rivet Heater Gas Name Role Phone Leo Jama MD Primary Care Provider [phone] [phone] Encounter Details Date Type Department Care Team (Latest Contact Info) Description 01/15/2025 Travel Social History Tobacco Use Types Packs/Day Years Used Date Smoking Tobacco: Former Cigarettes 0 12/01/2022 - 02/19/1976 Passive Smoke Exposure: Never Smokeless Tobacco: Never Alcohol Use Standard Drinks/Week Comments Not Currently 0 (1 standard drink = 0.6 oz pur e alcohol) [facility] Utilities Answer Date Recorded In the past [...] any clubs o r organizations such as christian groups, unions, fraternal or athletic groups, or [...] medical care, and heating? 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 Gender Identity Not on file Sexual Orientation Not on file documented as of this encounter Plan of Treatment Upcoming Encounters Date Type Department Care Team (Late st Contact Info) Description 03/01/2025 9:50 AM CDT Lab/Non-Imaging [facility] [address] [place] [address] 03/02/2025 10:30 AM CDT Nurse Visit [facility] [address] [place] [address] 03/02/2025 11:00 AM CDT Office Visit [place] [address] [place] [address] Leo Jama MD [address] [facility] [place] [address] 03/14/2025 9:10 AM CDT Lab/Non-Imaging [facility] [address] [place] [address] 03/21/2025 10:00 AM CDT Office Visit [facility] Endocrinology [address] [place] [address] [phone] Stevan Roberson MD [address] [place] [address] [place] [address] [phone] documented as of this encounter Goals Goal [...] documented as of this encounter Care Teams Rivet Heater Gas Relationship Specialty Start Date End Date Leo Jama MD [address] [place] [address] PCP - General Internal Medicine 03/01/24 documented as of this encounter
--- OUTSIDE RECORDS SUMMARY | 2025-02-11 20:36 | XMS_ITS | Encounter Summary ---
Author Organization [facility] lan, and Affiliates Address [address] [place] [address] Care Team Providers Care Pole Peeling Machine Operator Name Role Phone Leo Jama MD Primary Care Provider [phone] Reason for Visit * Reason Onset Date Comments Forms 03/15/2024 Encounter Details Date Type Department Care Team (Late st Contact Info) Description 03/15/2024 Telephone [facility] [address] [place] [address] Leo Jama MD [address] [facility] [facility] [place] [address] Forms Social History Tobacco Use Types Packs/Day Years Used Date Smoking Tobacco: Former Cigarettes 0 12/01/2022 - 02/19/1976 Passive Smoke Exposure: Current Smokeless Tobacco: Never Alcohol Use Standard Drinks/Week Comments Yes 1.7 (1 standard drink = 0.6 oz p ure alcohol) [facility] Utilities Answer Date Recorded In the past 12 months has [employer], gas, oil, or water [employer] threatened to shut off services in your [...] week 03/01/2024 How often do you attend [facility] or adventism services? Never 03/01/2024 Do you belong to [...] medical care, and heating? Somewhat hard 03/01/2024 [facility] [place] of Occupat ional Health - Occupational Stress [...] any time in the past [address] 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 documented in this encounter Plan of Treatment Upcoming Encounters Date Type Department Care Team (Late st Contact Info) Description 03/01/2025 9:50 AM CDT Lab/Non-Imaging [facility] [address] [place] [address] 03/02/2025 10:30 AM CDT Nurse Visit [facility] [address] [place] [address] 03/02/2025 11:00 AM CDT Office Visit [facility] [address] [place] [address] Leo Jama MD [address] [place] [address] 03/14/2025 9:10 AM CDT Lab/Non-Imaging [facility] [address] [place] [address] 03/21/2025 10:00 AM CDT Office Visit [facility] Endocrinology [address] [place] [address] [phone] Stevan Roberson MD [address] [place] [phone] documented as of this encounter Visit Diagnoses Not on filedocumented in this encounter Additional Health Concerns Assessment Noted Time PHQ-9 Depression Total Score: 0 03/01/20 24 4:01 PM CDT documented as of this encounter Care Teams Pole Peeling Machine Operator Relationship Specialty Start Date End Date Leo Jama MD [address] [facility] [facility] [place] [address] PCP - General Internal Medicine 03/01/24 documented as of this encounter
--- OUTSIDE RECORDS SUMMARY | 2025-02-11 20:36 | XMS_ITS | Encounter Summary ---
Author Organization [facility], and Affiliates Address [address] [place] [address] Care Team Providers Care Boat Laborer Name Role Phone Leo Jama MD Primary Care Provider [phone] Reason for Visit * Reason Onset Date Comments Surgery 01/04/2025 01/30/2025 PARATH YROIDECTOMY / EXPLORATION OF PARATHYROID Noelle Gutierrez MD Encounter Details Date Type Department Care Team (Late st Contact Info) Description 01/04/2025 Telephone [facility]-Prepare Team [address] [place] [address] Hiral Roberts, tea tree farm worker (01/30/2025 PARATHYROIDECTOMY / EXPLORATION OF PARATHYROID Noelle Gutierrez MD) Social History Tobacco Use Types Packs/Day Years Used Date Smoking Tobacco: Former Cigarettes 0 12/01/2022 - 02/19/1976 Passive Smoke Exposure: Current Smokeless Tobacco: Never Alcohol Use Standard Drinks/Week Comments Not Currently 1.7 (1 standard drink = 0.6 oz p ure alcohol) [facility] Utilities Answer Date Recorded In the past 12 months has [employer], gas, oil, or water company threatened to [...] often do you attend chur ch or gnosticism services? Never 03/01/2024 Do you belong to any clubs o r organizations such as episcopal groups, unions, fraternal or athletic groups, or [...] medical care, and heating? 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 We will contact your patient for a PrePare database call. Ok to proceed with surgery. documented in this encounter Plan of Treatment Upcoming Encounters Date Type Department Care Team (Late st Contact Info) Description 03/01/2025 9:50 AM CDT Lab/Non-Imaging [facility] [address] [place] [address] 03/02/2025 10:30 AM CDT Nurse Visit [facility] [address] [place] [address] 03/02/2025 11:00 AM CDT Office Visit [facility] [address] [place] [address] Leo Jama MD [address] [facility] [address] [address] 03/14/2025 9:10 AM CDT Lab/Non-Imaging [facility] [address] [place] [place] [address] 03/21/2025 10:00 AM CDT Office Visit [facility] Endocrinology [address] [place] [address] Stevan Roberson MD [address] [place] [address] [place] [address] documented as of this encounter [...] documented as of this encounter Care Teams Boat Laborer Relationship Specialty Start Date End Date Leo Jama MD [address] [facility] [place] [address] PCP - General Internal Medicine 03/01/24 documented as of this encounter
--- OUTSIDE RECORDS SUMMARY | 2025-02-11 20:36 | XMS_ITS | Encounter Summary ---
Author Organization [facility], and [facility] Address [address] [place] [address] Care Team Providers Care Diesel Power Mechanic Name Role Phone Leo Jama MD Primary Care Provider [phone] Encounter Details Date Type Department Care Team (Latest Contact Info) Description 01/04/2025 Travel Social History Tobacco Use Types Packs/Day Years Used Date Smoking Tobacco: Former Cigarettes 0 12/01/2022 - 02/19/1976 Passive Smoke Exposure: Current Smokeless Tobacco: Never Alcohol Use Standard Drinks/Week Comments Not Currently 1.7 (1 standard drink = 0.6 oz p ure alcohol) [facility] Utilities Answer Date Recorded In the past 12 months has [employer], gas, oil, or water [employer] threatened to shut off services in your [...] often do you attend chur ch or restorationism services? Never 03/01/2024 Do you belong to any clubs o r organizations such as evangelical groups, unions, fraternal or athletic groups, or [...] medical care, and heating? Somewhat hard 03/01/2024 [facility] Occupat ional Health - Occupational Stress [...] any time in the past 12 m [facility], were you homeless or living in a care home (including now)? 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 Gender Identity Not on file Sexual Orientation Not on file documented as of this encounter Plan of Treatment Upcoming Encounters Date Type Department Care Team (Late st Contact Info) Description 03/01/2025 9:50 AM CDT Lab/Non-Imaging [facility] [address] [place] [address] 03/02/2025 10:30 AM CDT Nurse Visit [facility] [address] [place] [address] 03/02/2025 11:00 AM CDT Office Visit [place] [address] [place] [address] Leo Jama MD [address] [place] [address] 03/14/2025 9:10 AM CDT Lab/Non-Imaging [facility] [address] [place] [address] 03/21/2025 10:00 AM CDT Office Visit [facility] Endocrinology [address] [place] [phone] Stevan Roberson MD [address] [place] [address] [place] [phone] documented as of this encounter Goals Goal [...] documented as of this encounter Care Teams Diesel Power Mechanic Relationship Specialty Start Date End Date Leo Jama MD [address] [address] PCP - General Internal Medicine 03/01/24 documented as of this encounter
--- OUTSIDE RECORDS SUMMARY | 2025-02-11 20:36 | XMS_ITS | Clinical Summary ---
Author Organization [facility], and Affiliates Address [address] [place] [address] Care Team Providers Care Service Station Operator Name Role Phone Leo Jama MD Primary Care Provider [phone] Allergies Active Allergy Reactions Criticality Noted Date Comments Penicillins Unknown 10/20/2010 Medications * This document contains information received from the source organization and may not represent a complete record from that organization. Multiple Vitamin (MULTI-VITAMIN) oral tablet Take 1 tablet by mouth once daily. Active losartan (COZAAR) 100 mg oral tabletIndications :Hypertension Take 1 tablet (100 mg total) by mouth once daily. Indications: High Blood Pressure Disorder 90 tablet 4 024 Active glipiZIDE, 24-hour, (GLUCOTROL XL) 10 mg oral tabletIndications :Type 2 Diabetes Mellitus Take 2 tablets (20 mg total) by mouth daily with breakfast. Indications: Type 2 Diabetes 180 tablet 4 024 Active carvedilol (COREG) 6.25 mg oral tablet Take 1 tablet (6.25 mg total) by mouth twice daily. 180 tablet 3 024 Active potassium citrate, controlled-releas e, (UROCIT-K 10) 10 mEq (1,080 mg) oral TBCR tabletIndications :Hypokalemia Take 1 tablet (10 mEq total) by mouth 2 (two) times a day. Indications: Low Amount of Potassium in the Blood 180 tablet 4 025 Active rosuvastatin (CRESTOR) 40 mg oral tablet Take 1 tablet (40 mg total) by mouth every night at bedtime. 90 tablet 3 025 2025 Active apixaban (ELIQUIS) 5 mg oral tablet May resume on 02/01/25.. 025 Active traZODone (DESYREL) 150 mg oral tablet Take 1 tablet (150 mg total) by mouth every night at bedtime. 90 tablet 4 Active ezetimibe (ZETIA) 10 mg oral tabletIndications :Hyperlipidemia, unspecified hyperlipidemia type Take 1 tablet (10 mg total) by mouth once daily. 90 tablet 4 025 Active ezetimibe (ZETIA) 10 mg oral tabletIndications :Hyperlipidemia, unspecified hyperlipidemia type Take 1 tablet (10 mg total) by mouth once daily. 90 tablet 4 024 2024 Discontinued apixaban (ELIQUIS) 5 mg oral tablet Take 1 tablet (5 mg total) by mouth twice daily. 60 tablet 11 024 2024 Discontinued traZODone (DESYREL) 150 mg oral tablet Take 1 tablet (150 mg total) by mouth every night at bedtime. 90 tablet 1 025 2024 Discontinued semaglutide, 1 MG/DOSE, (OZEMPIC) 4 MG/3ML subcutaneous pen-injectorIndic ations:Type 2 Diabetes Mellitus Inject 1 mg into the skin Once every week. Indications: Type 2 Diabetes 9 mL 4 025 2024 Discontinued(D iscontinued by patient) Calcium Carbonate Antacid (CALCIUM CARBONATE, CHEWABLE,) 500 mg oral CHEW tabletIndications :Hypoparathyroidi sm Take 1 tablet (500 mg total) by mouth twice daily for 7 days. Indications: Disorder of Low Parathyroid Hormone Levels 14 tablet 025 2024 HYDROcodone-aceta minophen (LORCET,LORTAB,NO RCO) 5-325 mg oral tabletIndications :Pain Take 1 tablet by mouth every 6 hours as needed for pain. Indications: Pain 8 tablet 025 2024 Active Problems Problem Noted Date Diagnosed Date Primary hyperparathyroidism 01/04/2025 Hypercalcemia 01/04/2025 Atrial fibrillation, persistent 02/24/2024 Coronary artery disease due to lipid rich plaque 01/03/2024 Hiatal hernia 07/15/2023 Esophageal dysphagia 07/15/2023 Fatty liver 07/15/2023 Other specified glaucoma 06/30/2023 History of CA (myocardial infarction) 06/23/2022 Overview (08/25/2024): 2017 Sleep disturbance 06/23/2022 Hyperlipidemia 04/08/2022 Insomnia 04/08/2022 Type II or unspecified type diabetes mellitus without mention of complication, uncontrolled 09/16/2007 Tobacco use disorder 09/05/2007 Essential hypertension, benign 09/05/2007 Resolved Problems Problem Noted Date Diagnosed Date Resolved Date Atrial flutter 04/04/2024 11/29/2024 Atrial fibrillation, persistent 01/03/2024 01/03/2024 Typical atrial flutter 01/03/202411/29 Hiatal hernia 07/15/2023 11/29/2024 Other disorders of lipoid metabolism 09/16/2007 11/29/2024 Encounters Date Type Department Care Team Description 02/08/2025 11:00 AM CDT Office Visit [facility] [address] [place] [address] Noelle Gutierrez MD S/P parathyroidectomy (Primary Dx) 02/08/2025 Travel 02/06/2025 Refill [facility] [address] [place] [address] Leo Jama MD Refill Request 02/02/2025 Refill [facility] [address] [place] [address] Leo Jama MD Refill Request 01/30/2025 9:45 AM CDT - 01/30/2025 1:09 PM CDT [facility] [address] [place] [address] Noelle Gutirerez MD LEFT PARATHYROIDECTOMY 01/30/2025 9:19 AM CDT Anesthesia Event [facility]-Surgery Periop [address] [place] [address] Collins Sanabria DO 01/30/2025 7:44 AM CDT - 01/30/2025 3:09 PM CDT Hospital Encounter [facility]-Surgery Periop [address] [place] [address] Noelle Gutierrez MD Post-operative pain (Primary Dx) Discharge Disposition: Disch to Home or Self Care 01/30/2025 Travel 01/19/2025 Telephone [facility] [address] [place] [address] Johanna Ivy, PharmD Schedule Appointment/ Procedure (MTM appt) 01/15/2025 Travel 01/15/2025 Telephone [facility]-Prepare Team [address] [place] [phone] Mattie Farfan RN Surgery (01/30/2025 PARATHYROIDECTOMY / EXPLORATION OF PARATHYROID Noelle Gutierrez MD) 01/11/2025 10:30 AM CDT Office Visit [facility] [address] [place] [address] Anna Dewitt MD Atrial fibrillation, persistent (*) (Primary Dx); Coronary artery disease due to lipid rich plaque 01/11/2025 Travel 01/10/2025 Telephone [facility]Prepare Team [address] [place] [phone] Neli Bejarano RN Medication Question (01/30/2025 PARATHYROIDECTOMY / EXPLORATION OF PARATHYROID Noelle Gutierrez MD) 01/08/2025 11:10 AM CDT Lab/Non-Imaging [facility] [address] [place] [address] Hyperparathyroidism; Hypercalcemia; Vitamin D deficiency 01/08/2025 Travel 01/04/2025 1:00 PM CDT Office Visit [facility] [address] [place] [phone] Noelle Gutierrez MD Primary hyperparathyroidism (Primary Dx); Hypercalcemia; Osteopenia, unspecified location; History of kidney stones 01/04/2025 Telephone [facility]Prepare Team [address] [place] [phone] Verenice Barnes, RN Anticoagulation (01/30/2025 PARATHYROIDECTOMY / EXPLORATION OF PARATHYROID Noelle Gutierrez MD) 01/04/2025 Telephone [facility]Prepare Team [address] [place] [address] Hiral Roberts RN Surgery (01/30/2025 PARATHYROIDECTOMY / EXPLORATION OF PARATHYROID Noelle Gutierrez MD) 01/04/2025 Telephone [facility] [address] [place] [phone] Stevan Roberson MD Patient Update 01/04/2025 Travel 12/20/2024 Telephone [facility] [address] [place] [phone] Noelle Gutierrez MD Schedule Appointment/ Procedure 12/14/2024 Telephone [facility] [address] [place] [phone] Stevan Roberson MD Referral Requested 12/12/2024 2:07 PM CDT - 12/12/2024 11:59 PM CDT Hospital Encounter [facility] Surgery critical [facility]-CT Scan [address] [place] [phone] Stevan Roberson MD Hyperparathyroidism; Hypercalcemia Discharge Disposition: Disch to Home or Self Care 12/12/2024 Travel 12/08/2024 1:00 PM CDT Lab/Non-Imaging [facility] [address] [place] [address] Pre-procedure lab exam 12/08/2024 Travel 12/04/2024 11:00 AM CDT Office Visit [facility] [address] [place] [address] Leo Jama MD Type 2 diabetes mellitus with hyperglycemia, without long-term current use of insulin (*) (Primary Dx); Essential hypertension, benign; Hyperlipidemia, unspecified hyperlipidemia type; Nephrolithiasis 12/04/2024 10:10 AM CDT [facility] [address] [place] [address] Type 2 diabetes mellitus with hyperglycemia, without long-term current use of insulin (*) (Primary Dx) 12/04/2024 Travel 12/01/2024 Telephone [facility] CT Scan Department [address] [place] [address] Stevan Roberson MD Orders 11/29/2024 Orders Only [facility] Endocrinology [address] [facility] [address] [place] [address] Stevan Roberson MD Hyperparathyroidism (Primary Dx); Hypercalcemia 11/28/2024 9:34 AM CDT - 11/28/2024 11:59 PM CDT Hospital Encounter [facility] Nuc Med Department [address] [place] [address] Stevan Roberson MD Hyperparathyroidism; Hyperparathyroidism, primary Discharge Disposition: Disch to Home or Self Care 11/28/2024 Travel from Last 3 Months Immunizations Immunization Administration Dates Next Due HepA Adult 10/23/2014,09/18/2014 HepB adult 10/23/2014,09/18/2014 MMR 02/12/1992 Rubella 01/09/1977 Td 11/18/2012,11/07/2008 Td (adult) unspecified formulation 11/07/2008 Tdap > 7 Years 09/18/2014 Family History Medical History Relation Comments Cancer Brother 1 Diabetes Father Hypertension Father Lipids Father Heart/Vascular Maternal Grandmother Diabetes Sister Relation Status Comments Brother 1 Alive Brother 2 Alive Brother 3 Alive Father Maternal Grandmother Mother Sister Alive Social History Tobacco Use Types Packs/Day Years Used Date Smoking Tobacco: Former Cigarettes 0 12/01/2022 - 02/19/1976 Passive Smoke Exposure: Never Smokeless Tobacco: Never Tobacco Cessation:Counseling Given: Not Answered Alcohol Use Standard Drinks/Week Comments Not Currently 0 (1 standard drink = 0.6 oz pur e alcohol) [facility] Utilities Answer Date Recorded In the past 12 months has [employer], gas, oil, or water [facility] threatened to shut off services in your [...] often do you attend chur ch or orthodox services? Never 03/01/2024 Do you belong to any clubs o r organizations such as temple groups, unions, fraternal or athletic groups, or [...] medical care, and heating? Somewhat hard 03/01/2024 [facility] - Occupational Stress [...] any time in the past 12 m [facility], were you homeless or living in [...] on file Legal Sex Male 6:27 PM [employer] Gender Identity Not on file Sexual Orientation Not on file Last Filed Vital Signs Vital Sign Reading [...] Mass Index 26.07 01/30/2025 8:43 AM CDT Plan of Treatment Upcoming Encounters Date Type Department Care Team (Late st Contact Info) Description 03/01/2025 9:50 AM CDT [facility] [address] [place] [address] 03/02/2025 10:30 AM CDT Nurse Visit [facility] [address] [place] [address] 03/02/2025 11:00 AM CDT Office Visit [facility] [address] [place] [address] Leo Jama MD [address] [facility] [place] [address] 03/14/2025 9:10 AM CDT Lab/Non-Imaging [facility] [address] [place] [address] 03/21/2025 10:00 AM CDT Office Visit [facility] Endocrinology [address] [place] [address] Stevan Roberson MD [address] [place] [address] [place] [address] Health Maintenance Due Date Last Done Comments Hep C Screening 1960 Pneumococcal 50+ (1 of 2 - PCV) 12/07/1979 CT Colonography Every 5 Years 2005 Cologuard Every 3 Years 2005 FIT/FOBT Every 1 Year 2005 Sigmoidoscopy Every 5 Years 2005 Shingles (1 of 2) 2010 Hep B (3 of 3 - 19+ 3-dose series) 03/18/20152014, 09/18/2014 Hep A (2 of 2 - 2 Dose Series) 04/22/2015 10/23/2014 , 09/18/2014 RSV Adult 60+ and patients (1 - Risk 60-74 years 1-dose series) 2020 COVID-19 Vaccine (1 - 2023-2 5 season) 2024 DTaP/Tdap/Td/Tetanus (2 - Td or Tdap) 09/18/2024 09/18/2014, 11/18/2012, 11/07/2008, Additional history exists Diabetic Eye Exam 02/13/2025 02/14/2024 Lipids 03/01/2025 03/01/2024, 08/06, 06/23/2022, Additional history exists Microalbumin (Albumin-Creati nine Ratio) 03/01/2025 03/01/2024, 03/01/2024, 06/08/2023, Additional history exists Flu 6M+ (Season Ended) 2025 HGBA1C 06/05/2025 12/04/2024, 08/08, 06/02/2024, Additional history exists Creatinine 01/30/2026 01/30/2025, 05/0 01/2025, 12/08/2024, Additional history exists eGFR 01/30/2026 01/30/2025, 05/0 01/2025, 12/08/2024, Additional history exists Colonoscopy 11/20/2030 11/20/2020 Colorectal Cancer Screening 11/20/2030 Goals Goal Patient Goal Type Associated Problems Recent Progress Patient-Stated? Author Blood Pressure < 140/90 Blood Pressure 124/66(2024 2:28 PM CDT) No Leo Jama MD hdl > 40 Result Component 54(03/01/2024 9:54 AM CDT) No Leo Jama MD Procedures Procedure Name Priority Date/Time Associated Diagnosis Comments GLUCOSE BLOOD REAGENT STRIP STAT 01/30/2025 11:49 AM CDT INTRAOPERATIVE PTH, BLOOD-SURGERY ONLY STAT 01/30/2025 11:10 AM CDT INTRAOPERATIVE PTH, BLOOD-SURGERY ONLY STAT 01/30/2025 11:00 AM CDT SURGICAL SPECIMEN FOR PATH (BELLIN ONLY) Routine 01/30/2025 10:47 AM CDT BLN ANESTHESIA ARTERIAL LINE LDA Routine 01/30/2025 9:48 AM CDT INTRAOPERATIVE PTH, BLOOD-SURGERY ONLY STAT 01/30/2025 9:27 AM CDT ANESTHESIA AIRWAY Routine 01/30/2025 9:2 7 AM CDT EXPLORE PARATHYROID GLANDS 01/30/2025 9:02 AM CDT Primary hyperparathyroidism Hypercalcemia COMPLETE BLOOD CT NO DIFF STAT 01/30/2025 8:55 AM CDT PANEL, COMPREHENSIVE METABOLIC STAT 01/30/2025 8:55 AM CDT GLUCOSE BLOOD REAGENT STRIP STAT 01/30/2025 8:53 AM CDT VITAMIN D 25 HYDROXY D2/D3 Routine 01/08/2025 9:52 AM CDT Hyperparathyroidism Hypercalcemia Vitamin D deficiency PTH INTACT Routine 01/08/2025 9:52 AM CDT Hyperparathyroidism Hypercalcemia PANEL, COMPREHENSIVE METABOLIC Routine 01/08/2025 9:52 AM CDT Hyperparathyroidism Hypercalcemia CT 4D NECK-PARATHYROID (BLN) Routine 12/12/2024 2:32 PM CDT Hyperparathyroidism Hypercalcemia CREATININE, SERUM Routine 12/08/2024 12: 59 PM CDT Pre-procedure lab exam JUST IN CASE GOLD TOP TUBE Routine 12/04/2024 10:04 AM CDT Type 2 diabetes mellitus with hyperglycemia, without long-term current use of insulin (*) GLYCOHEMOGLOBIN/HEMOGL OBIN A1C (BELLIN ONLY) Routine 12/04/2024 10:04 AM CDT Type 2 diabetes mellitus with hyperglycemia, without long-term current use of insulin (*) NM PARATHYROID SPECT SCAN Routine 11/28/2024 1:37 PM CDT Hyperparathyroidism Hyperparathyroidism , primary MICROALBUMIN/CREAT RATIO,RANDOM URINE Routine 03/01/2024 9:54 AM CDT Type 2 diabetes mellitus with hyperglycemia, unspecified whether usp insulin use (*) LIPID PANEL WITH REFLEX LDL Routine 03/01/2024 9:54 AM CDT Type 2 diabetes mellitus with hyperglycemia, unspecified whether usp insulin use (*) DIABETIC EYE EXAM EXTERNAL RESULT Routine 02/14/2024 COLONOSCOPY EXTERNAL RESULT Routine 11/20/2020 from Last 3 Months or Most Recently Relevant to Health Maintenance Results * (ABNORMAL) Glucose, Whole Blood (01/30/2025 11:49 AM CDT) Only the most recent of2 resultswithin the time period is included. Glucose, POCT 158(H) 70 - 100 mg/dL 01/30/2025 11:[address] [facility] Blood, capillary 01/30/2025 11:49 AM CDT 01/30/2025 11:55 AM CDT Noelle Gutierrez MD POINT OF CARE TEST ORDERABLES Final Result Performing Organization Address [facility] de Phone Number [address] [place] [phone] * Intraoperative PTH,Blood-Surgery only (01/30/2025 11:10 AM CDT) Only the most recent of3 resultswithin the time period is included. PTH INTACT, INTRAOP 18.6 15.0 - 65.0 pg/mL 01/30/2025 11:[address] [facility] Blood (Blood, arterial line draw) Arterial Puncture / Unknown 01/30/2025 11:10 AM CDT 01/30/2025 11:[address] [facility] - 01/30/2025 11:52 AM CDT Samples should not be taken from patients receiving therapy with high biotin doses until at least 8 hours following the last biotin administration. High biotin levels in patient samples may falsely increase or decrease the measured value. Patient heterophile antibodies may interfere with immunoassays, e.g. HAMA. Noelle Gutierrez MD LAB BLOOD ORDERABLES Final Re sult Performing Organization Address [facility] Co de Phone Number [facility] [address] [place] [address] [place] [phone] * Surgical Specimen for Pathology (01/30/2025 10:47 AM CDT) Case Report Surgical Pathology Report Case: [id number] Authorizing Provider: Noelle Gutierrez MD Collected: 01/30/2025 1047 Ordering Location: [facility]-Surgery Received: 01/30/2025 1135 Periop Pathologist: Glen Alfaro MD Specimen: Parathyroid, left parathyroid gland 02/01/2025 6:[address] [facility] Final Diagnosis Parathyroid, left, parathyroidect jairo: - Cellular parathyroid (340 mg) compatible with chief cell adenoma. 02/01/2025 6:[address] [facility] at 1838 CDT Microscopic Description Microscopic findings support the final diagnosis. 02/01/2025 6:[address] [facility] Gross Description Received: Fresh, left parathyroid gland Number of pieces: One Color: Reeves Measurement: 0.34 g, 1.3 x 1.0 x 0.6 cm, bisected Cassettes: Entirely submitted in one cassette labeled A1. (JKB) 02/01/2025 6:[address] [facility] Special Attention Diagnosis No 02/01/2025 6:[address] [facility] Tissue PARATHYROID SPECIMEN / Unknown 01/30/2025 10:47 AM CDT 01/30/2025 11:35 AM CDT us Noelle Gutierrez MD PATHOLOGY/CYTOLOGY ORDERABLES Final Result [facility] [address] [facility] [address] [place] [phone] * BLN ANESTHESIA ARTERIAL LINE LDA (01/30/2025 9:48 AM CDT) Narrative Ayo Gilmore CRNA - 01/30/2025 9:48 AM CDT yAo Gilmore CRNA 01/30/2025 9:49 AM Line Placement Type of Line: Arterial line placed on the Left Radial Staffing Anesthesiologist: Collins Sanabria DO [employer] SIDING MECHANIC/AA: Ayo Gilmore CRNA Performed: Anesthesiologist Preanesthesia Checklist [...] Elective Difficult Airway: No difficult airway Staffing [employer] SIDING MECHANIC/AA: Ayo Gilmore CRNA Student [employer]IDING MECHANIC / Other staff: marilyn muñoz Performed: Student [employer] SIDING MECHANIC/Other Indications and Patient Condition Indications for Airway [...] DO ANESTHESIA ORDERABLES Velia l Result * (ABNORMAL) Comprehensive Metabolic Panel (01/30/2025 8:55 AM CDT) Only the most recent of2 resultswithin the time period is included. GLUCOSE 173(H) 70 - 100 mg/dL 01/30/2025 9:[address] [facility] UREA NITROGEN 12 8 - 23 mg/dL 01/30/2025 9:[address] [facility] CREATININE 0.95 0.70 - 1.20 mg/dL 01/30/2025 9:[address] [facility] eGFR 89 >=60 mL/Min/1. 73 sqm 01/30/2025 9:25 AM [facility] Comment:Calculation based on the Chronic Kidney Disease Epidemiology Collaboration (CKD-EPI) equation refit without adjustment for race. SODIUM 139 136 - 145 mmol/L (mEq/L) 01/30/2025 9:[address] [facility] POTASSIUM 4.3 3.5 - 5.1 mmol/L (mEq/L) 01/30/2025 9:25 AM [facility] CHLORIDE 109(H) 98 - 107 mmol/L (mEq/L) 01/30/2025 9:[address] [facility] TOTAL CO2 21(L) 22 - 29 mmol/L (mEq/L) 01/30/2025 9:[address] [facility] CALCIUM 10.7(H) 8.8 - 10.2 mg/dL 01/30/2025 9:[address] [facility] TOTAL PROTEIN 6.5 6.4 - 8.3 g/dL 01/30/2025 9:[address] [facility] ALBUMIN 4.2 4.0 - 4.9 g/dL 01/30/2025 9:25 AM [facility] BILIRUBIN, TOTAL 0.3 <=1.2 mg/dL 01/30/2025 9:[address] [facility] SGOT/AST 47 10 - 50 U/L 01/30/2025 9:25 AM [facility] SGPT/ALT 80(H) 10 - 50 U/L 01/30/2025 9:25 AM [facility] ALK PHOSPHATASE 68 40 - 129 U/L 01/30/2025 9:25 AM [facility] ANION GAP 9.4 3.0 - 12.0 01/30/2025 9:25 AM [facility] Blood Venipuncture / Unknown 01/30/2025 8:55 AM CDT 01/30/2025 8:58 AM CDT us Alex Robledo MD LAB BLOOD ORDERABLES Final R esult [facility] [address] [phone] * (ABNORMAL) Complete Blood Ct No DIFF (01/30/2025 8:55 AM CDT) WBC COUNT 8.1 3.8 - 10.7 K/ul 01/30/2025 9:04 AM [facility] RBC COUNT 4.13(L) 4.21 - 5.75 M/ul 01/30/2025 9:04 AM [facility] HEMOGLOBIN 13.0(L) 13.5 - 17.5 g/dl 01/30/2025 9:04 AM [facility] HEMATOCRIT 38.2(L) 38.5 - 50.0 % 01/30/2025 9:04 AM [facility] MCV 92.5 80.0 - 100.0 fl 01/30/2025 9:04 AM [facility] MCH 31.5 28.2 - 34.7 pg 01/30/2025 9:04 AM [facility] MCHC 34.0 32.0 - 36.0 g/dl 01/30/2025 9:04 AM [facility] RDW 11.7 11.5 - 14.5 % 01/30/2025 9:[address] [facility] PLATELET COUNT 211 150 - 450 K/ul 01/30/2025 9:[address] [facility] Blood Venipuncture / Unknown 01/30/2025 8:55 AM CDT 01/30/2025 8:58 AM CDT Alex Robledo MD LAB BLOOD ORDERABLES Final R esult Performing Organization Address [facility] Co de Phone Number [facility] [address] [place] [phone] * VITAMIN D 25 HYDROXY TOTAL (BELLIN ONLY) (01/08/2025 9:52 AM CDT) 25-HYDROXY D TOTAL 40.2 30.0 - 100.0 ng/ml 01/08/2025 3:[address] [facility] Blood Venipuncture / Unknown 01/08/2025 9:52 AM CDT 01/08/2025 9:[address] [facility] - 01/08/2025 3:46 PM CDT The [...] falsely increase or decrease the measured value. Stevan Roberson MD LAB BLOOD ORDERABLES Final Res ult Performing Organization Address [facility] Co de Phone Number [address] [phone] * (ABNORMAL) PTH INTACT (01/08/2025 9:52 AM CDT) PTH INTACT 71.0(H) 15.0 - 65.0 pg/mL 01/08/2025 3:[address] [facility] Blood Venipuncture / Unknown 01/08/2025 9:52 AM CDT 01/08/2025 9:[address] [facility] - 01/08/2025 3:46 PM CDT Samples should not be taken from patients receiving therapy with high biotin doses until at least 8 hours following the last biotin administration. High biotin levels in patient samples may falsely increase or decrease the measured value. Patient heterophile antibodies may interfere with immunoassays, e.g. HAMA. Stevan Roberson MD LAB BLOOD ORDERABLES Final Res ult [facility] [address] [phone] * CT 4D NECK-PARATHYROID (BLN) (12/12/2024 2:32 PM CDT) Anatomical Region Laterality Modality Neck, Bones Neck Computed Tomogr aphy 12/13/2024 2:01 PM CDT Impressions 12/12/2024 2:15 PM CDT 1. Solitary highly suspicious candidate nodule posterior to the left thyroid lobe measuring up to 10 mm. This is probably a parathyroid adenoma. Christophe Kruse M.D. This report has been electronically signed and verified by the Radiologist whose name is printed above. This report contains privileged and confidential information and is intended solely for the use of the individual or entity to which it is addressed. If you are not the intended recipient of this report, you are hereby notified that any copying, distribution, dissemination or action taken in relation to the contents of this report is strictly prohibited and may be unlawful. If you have received this report in error, please notify the sender immediately at [phone] and permanently delete the original report and destroy any copies or printouts. Narrative 12/12/2024 2:15 PM CDT ++++++++ THIS IS A FINAL REPORT ++++++++ Reason For Exam: Hyperparathyroidism Additional Information: hypercalcemia due to primary Hyperparathyroid with neg parathyroid scan for parathyroid surgery EXAMINATION: CT neck (4D parathyroid protocol) COMPARISON: SPECT-CT parathyroid scan 11/28/2024; thyroid ultrasound 11/09/2024 TECHNIQUE: CT neck parathyroid protocol. CT neck without contrast at 1 mm slice increments. After contrast administration: 25 sec rescan at 1 mm slice increments, 3 mm reformats; 80 sec after contrast rescan at 1 mm slice increments, 3 mm reformats; sag and coronal reformations including MIPs. Contrast: Isovue-370 75 mL administered intravenously without reported complications. Total DLP: 983 mGy/cm FINDINGS: Highly suspicious candidate nodule posterior to the left thyroid lobe in the tracheoesophageal groove (, ) with delayed phase washout relative to thyroid (), measures 9 x 7 x 10 mm. Small nodule in the left thyroid lobe containing macroscopic fat. No pathologically enlarged lymph nodes in the neck. Adducted glottis. Upper airway is otherwise patent. Parotid and submandibular glands appear normal. Right carotid bulb atherosclerosis resulting in mild proximal ICA stenosis (20%). Left carotid bulb atherosclerosis resulting in mild distal left CCA stenosis (20%). Heavily calcified 9 mm nodule in the subpleural right upper lobe. Mild paraseptal emphysema. Remote appearing right lamina papyracea blowout fracture. Paranasal sinuses are clear. No mastoid or middle ear effusion. Multilevel cervical spondylosis, worst at C5-C6. Nuchal sesamoids. Procedure Note Art Kruse MD - 12/13/2024 ++++++++ THIS IS A FINAL REPORT ++++++++ Reason For Exam: Hyperparathyroidism Additional Information: hypercalcemia due to primary Hyperparathyroid withneg parathyroid scan for parathyroid surgery EXAMINATION: CT neck (4D parathyroid protocol) COMPARISON: SPECT-CT parathyroid scan 11/28/2024; thyroid ultrasound11/09/2024 TECHNIQUE: CT neck parathyroid protocol. CT neck without contrast at 1 mmslice increments. After contrast administration: 25 sec rescan at 1 mmslice increments, 3 mm reformats; 80 sec after contrast rescan at 1 mmslice increments, 3 mm reformats; sag and coronal reformations includingMIPs. Contrast: Isovue-370 75 mL administered intravenously withoutreported complications. Total DLP: 983 mGy/cm FINDINGS: Highly suspicious candidate nodule posterior to the left thyroid lobe inthe tracheoesophageal groove (, ) with delayed phase washoutrelative to thyroid (), measures 9 x 7 x 10 mm. Small nodule in the left thyroid lobe containing macroscopic fat. Nopathologically enlarged lymph nodes in the neck. Adducted glottis. Upperairway is otherwise patent. Parotid and submandibular glands appearnormal. Right carotid bulb atherosclerosis resulting in mild proximal ICAstenosis (20%). Left carotid bulb atherosclerosis resulting in milddistal left CCA stenosis (20%). Heavily calcified 9 mm nodule in thesubpleural right upper lobe. Mild paraseptal emphysema. Remote appearingright lamina papyracea blowout fracture. Paranasal sinuses are clear. Nomastoid or middle ear effusion. Multilevel cervical spondylosis, worst atC5-C6. Nuchal sesamoids. IMPRESSION: 1. Solitary highly suspicious candidate nodule posterior to the leftthyroid lobe measuring up to 10 mm. This is probably a parathyroidadenoma. Christophe Kruse M.D. This report has been electronically signed and verified by the Radiologistwhose name is printed above. This report contains privileged and confidential information and isintended solely for the use of the individual or entity to which it isaddressed. If you are not the intended recipient of this report, you arehereby notified that any copying, distribution, dissemination or actiontaken in relation to the contents of this report is strictly prohibitedand may be unlawful. If you have received this report in error, pleasenotify the sender immediately at [phone] and permanently delete theoriginal report and destroy any copies or printouts. Stevan Roberson MD CT Final Result * CREATININE, SERUM (12/08/2024 12:59 PM CDT) CREATININE 1.08 0.73 - 1.18 mg/dL 12/08/2024 2:50 PM CDT [facility] eGFR 77 >=60 mL/Min/1.7 3 sqm 12/08/2024 2:50 PM CDT [facility] Comment:Calculation based on the Chronic Kidney Disease Epidemiology Collaboration (CKD-EPI) equation refit without adjustment for race. Blood Venipuncture / Unknown 12/08/2024 12:59 PM CDT 12/08/2024 12:59 PM CDT Stevan Roberson MD LAB BLOOD ORDERABLES Final Res ult Performing Organization Address City/[facility]/ZIP Co de Phone Number [facility] [address] [place] [address] * JUST IN CASE GOLD TOP TUBE (12/04/2024 10:04 AM CDT) EXTRA GOLD Extra Gold 12/04/2024 11:55 AM CDT [facility] Blood Venipuncture / Unknown 12/04/2024 10:04 AM CDT 12/04/2024 10:04 AM CDT Leo Jama MD LAB - NO IN BASKET NO LAB TAB Final Result Performing Organization Address City/[facility] Co de Phone Number [address] [address] * (ABNORMAL) GLYCOHEMOGLOBIN/HEMOGLOBIN A1C ([facility] ONLY) (12/04/2024 10:04 AM CDT) A1C 5.9(H) <5.7 % 12/04/2024 12:15 PM CDT [facility] ESTIMATED AVG GLUCOSE 123 mg/dl 12/04/2024 12:15 PM CDT [facility] Whole blood Venipuncture / Unknown 12/04/2024 10:04 AM CDT 12/04/2024 10:04 AM CDT Narrative [facility] - 12/04/2024 12:15 PM CDT Note revised reference range and comment, effective 08-28-19 THE CLINICAL PRACTICE RECOMMENDATIONS FOR STANDARDS OF MEDICAL CARE IN DIABETICS: Prediabetes Diagnosis = 5.7-6.4% Diabetes Diagnosis = 6.5% and greater Anemia / acute blood loss may falsely lower HGB A1C results Recent blood transfusions may affect HGB A1C accuracy Leo Jama MD LAB BLOOD ORDERABLES Velia roe Result [address] [id number] * NM PARATHYROID SPECT SCAN (11/28/2024 1:37 PM CDT) Anatomical Region Laterality Modality Neck Nuclear Medicine 11/28/2024 4:34 PM CDT Impressions 11/28/2024 4:46 PM CDT No significant parathyroid radiotracer retention on delayed images to suggest a parathyroid adenoma. Signed by Kwame Ley MD on 11/28/2024 4:46 PM at [id number] Narrative 11/28/2024 4:46 PM CDT REASON FOR STUDY: E21.3: Hyperparathyroidism E21.0: Hyperparathyroidism, primary TECHNIQUE: SPECT-CT parathyroid scan utilizing 26.4 mCi Tc 99m sestamibi IV. Axial CT images of the neck. Immediate and delayed SPECT images of the neck. Rotating maximum intensity projection SPECT images generated in addition to axial, coronal, and sagittal SPECT and SPECT-CT images. COMPARISON: 11/09/2024 thyroid ultrasound. FINDINGS: Mild atelectatic appearing pulmonary opacities. Mild emphysematous changes of the lungs. Calcified granuloma of the upper lobe of the right lung. Atherosclerotic calcifications. Probable mucus retention cyst of the right maxillary sinus. Skeletal degenerative changes. Subcentimeter fat-containing left thyroid nodule. No significant parathyroid radiotracer retention on delayed images to suggest a parathyroid adenoma. Procedure Note Kwame Ley - 11/28/2024 REASON FOR STUDY: E21.3: Hyperparathyroidism E21.0: Hyperparathyroidism, primary TECHNIQUE: SPECT-CT parathyroid scan utilizing 26.4 mCi Tc 99m sestamibiIV. Axial CT images of the neck. Immediate and delayed SPECT images of theneck. Rotating maximum intensity projection SPECT images generated in additionto axial, coronal, and sagittal SPECT and SPECT-CT images. COMPARISON: 11/09/2024 thyroid ultrasound. FINDINGS: Mild atelectatic appearing pulmonary opacities. Mildemphysematous changes of the lungs. Calcified granuloma of the upper lobe of the rightlung. Atherosclerotic calcifications. Probable mucus retention cyst of theright maxillary sinus. Skeletal degenerative changes. Subcentimeterfat-containing left thyroid nodule. No significant parathyroid radiotracer retention on delayed images tosuggest a parathyroid adenoma. IMPRESSION: No significant parathyroid radiotracer retention on delayed images to suggest a parathyroid adenoma. Signed by Kwame Ley MD on 11/28/2024 4:46 PM at [id number] Stevan Roberson MD NUCLEAR MEDICINE Final Result * MICROALBUMIN/CREAT RATIO,RANDOM URINE (03/01/2024 9:54 AM CDT) MICROALBUMIN 11.3 mg/L 03/01/2024 4:15 PM CDT [facility] CREATININE, URINE 75 40 - 278 mg/dL 03/01/2024 4:15 PM CDT [facility] ALBUMIN/CREAT RATIO 15 0 - 20 mg/g 03/01/2024 4:15 PM CDT [facility] Urine Non Blood Collection / Unknown 03/01/2024 9:54 AM CDT 03/01/2024 9:54 AM CDT [facility] - 03/01/2024 4:15 PM CDT Test values are reported as an Albumin/Creatinine ratio. An Albumin/Creatinine ratio of 300 MG/G or higher suggests overt albuminuria. Thus, microalbuminuria has been defined as an Albumin/Creatinine ratio of 17-299 MG/G for males. Patients taking cephalosporin antibiotics may have a falsely elevated urine creatinine value that would result in a falsely low Albumin/Creatinine ratio. Any patient who has Albumin/Creatinine ratio in the positive microalbuminuria range needs to have this confirmed with a second sample because of the biologic variability. If there is discrepancy, a third sample is recommended. If two out of the three results are in the positive microalbuminuria range, this is evidence for incipient nephropathy and warrants increased efforts at glucose control, blood pressure control and possibly protein restrictions. Leo Jama MD URINE ORDERABLES Final Re sult Performing Organization Address City/[facility]/ZIP Co de Phone Number [facility] [address] [place] [address] * LIPID PANEL WITH REFLEX LDL (03/01/2024 9:54 AM CDT) CHOLESTEROL 161 <=200 mg/dL 03/01/2024 11:19 AM T [facility] Comment: CHOLESTEROL: Desirable Less than 200 mg/dl Borderline High Risk 200 - 239 mg/dl High Risk Greater than 240 mg/dl TRIGLYCERIDE 111 <=150 mg/dL 03/01/2024 11:19 AM T [facility] Comment: TRIGLYCERIDES: Normal Less than 150 mg/dl Borderline High Risk 150 - 199 mg/dl High Risk 200 - 499 mg/dl Very High Risk Greater than 500 mg/dl HDL CHOLESTEROL 54 >=40 mg/dL 11:19 AM T [facility] NON HDL CHOLESTEROL 107 <=130 mg/dl 03/01/2024 11:19 AM [facility] LDL 85 <=100 mg/dl 03/01/2024 11:19 AM [facility] Comment: LDL CHOLESTEROL: Optimal Less than 100 mg/dl Near Optimal/Above Optimal 100 - 129 mg/dl Borderline High Risk 130 - 159 mg/dl High Risk 160 - 189 mg/dl Very High Risk Greater than 190 mg/dl CHOL/HDL RATIO 3.0 <=4.5 03/01/2024 11:19 AM T [facility] Blood Venipuncture / Unknown 03/01/2024 9:54 AM CDT 03/01/2024 9:54 AM CDT us Leo Jama MD LAB BLOOD ORDERABLES Velia l Result Performing Organization Address City/[facility]/ZIP Co de Phone Number [facility] [address] [place] [address] * DIABETIC EYE EXAM EXTERNAL RESULT (02/14/2024) us Karri Parish O.D. 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 Advance Directives and Livin g Will 03/20/2024 8:54 AM POA [phone] * Full Code (Latest Code Status on File) Date Activated Date Inactivated Comments 01/30/2025 11:07 AM 01/30/2025 5:14 PM * Full Code Date Activated Date Inactivated Comments 01/30/2025 8:09 AM 01/30/2025 11:07 AM * Full Code Date Activated Date Inactivated Comments 04/04/2024 10:20 AM 01/30/2025 7:44 AM * Full Code Date Activated Date Inactivated Comments 04/04/2024 6:54 AM 04/04/2024 10:20 AM Care Teams Service Station Operator Relationship Specialty Start Date End Date Leo Jama MD [address] [place] [address] PCP - General Internal Medicine 03/01/24
--- OUTSIDE RECORDS SUMMARY | 2025-02-11 20:36 | XMS_ITS | Clinical Summary ---
Author Organization [employer] [facility] Address [address] [place] [id number] Care Team Providers Care Silver Plater Name Role Phone Jorje Guerrero DO Primary Care Provider Allergies Active Allergy Reactions Criticality Noted Date Comments Penicillins Anaphylaxis High 04/08/2022 Medications cholecalciferol (VITAMIN D3) 2,000 unit capsule Take 2,000 units by mouth once daily. Active glipiZIDE (GLUCOTROL) 10 mg tablet Take 10 mg by mouth once daily before a meal. 3 Active multivitamin (MVI) tablet Take 1 Tablet by mouth once daily. Active potassium citrate (UROCIT-K) 10 mEq (1,080 mg) tablet Take 10 mEq by mouth three times daily. 3 Active traZODone (DESYREL) 150 mg tablet Take 150 mg by mouth at bedtime. 3 Active ondansetron (ZOFRAN ODT) 4 mg disintegrating tablet Take 4 mg by mouth every 8 hours if needed. Take 1 Tablet by mouth every eight hours as needed for Nausea. 3 Active gabapentin (NEURONTIN) 100 mg capsule Take 100 mg by mouth 3 times daily if needed. 4 Active magnesium oxide (MAG-OX 400) 400 mg tabletIndications:H ypomagnesemia TAKE 1 TABLET (400 MG) BY MOUTH ONCE DAILY. 30 Tablet 4 Active apixaban (Eliquis) 5 mg tabletIndications:P ersistent atrial fibrillation (HC) Take 1 Tablet (5 mg) by mouth two times daily. 180 Tablet 4 Active losartan (COZAAR) 100 mg tabletIndications:P rimary hypertension Take 1 Tablet (100 mg) by mouth once daily. 90 Tablet 4 Active carvediloL (COREG) 6.25 mg tabletIndications:P ersistent atrial fibrillation (HC) TAKE 1 TABLET(6.25 MG) BY MOUTH TWICE DAILY WITH MEALS 180 Tablet 4 Active atorvastatin (LIPITOR) 80 mg tabletIndications:M ixed hyperlipidemia TAKE 1 TABLET(80 MG) BY MOUTH AT BEDTIME 90 Tablet 3 4 Active amiodarone (CORDARONE) 200 mg tabletIndications:A trial fibrillation, unspecified type (HC) TAKE 1 TABLET BY MOUTH DAILY 90 Tablet 4 Active Active Problems Problem Noted Date Diagnosed Date Chronic GERD 07/15/2023 Hiatal hernia 07/15/2023 Fatty liver 07/15/2023 Other specified glaucoma 06/30/2023 Sleep disturbance 06/23/2022 Hyperlipidemia 04/08/2022 Insomnia 04/08/2022 Primary hypertension 04/08/2022 Type 2 diabetes mellitus without complication Overview (08/10/2023): Last Assessment & Plan: Achieve follow up Encounters Date Type Department Care Team Description 02/10/[address] [address] Art Louis PA Refill Request (Atorvastatin) from Last 3 Months Social History Tobacco Use Types Packs/Day Years Used Date Smoking Tobacco: Former Cigarettes Smokeless Tobacco: Never Tobacco Cessation:Counseling Given: Not Answered Social Connections Answer Date Recorded Frequency of Communication with Friends and Fami ly Not on file 09/27/2023 Sex and Gender Information Value Date Recorded Sex Assigned at Male 11/29/2023 10:55 AM CDT 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 Gender Identity Male 11/29/2023 10:55 AM CDT Sexual Orientation Not on file Obstetrics History Last Filed Vital Signs Vital Sign Reading Time Taken Comments Blood Pressure 122/84 09/27/2023 1:44 PM COMMERCIAL ENERGY AUDITOR Pulse 102 09/27/2023 1:44 PM COMMERCIAL ENERGY AUDITOR Temperature - - Respiratory Rate - - Oxygen Saturation 97% 09/27/2023 1:44 PM COMMERCIAL ENERGY AUDITOR Inhaled Oxygen Concentration - - Weight 84.8 kg (186 lb 14.4 oz) 09/27/2023 1:44 PM COMMERCIAL ENERGY AUDITOR Height 177.8 cm (5' 10) 09/27/2023 1:44 PM COMMERCIAL ENERGY AUDITOR Body Mass Index 26.82 09/27/2023 1:44 PM COMMERCIAL ENERGY AUDITOR Plan of Treatment Health Maintenance Due Date Last Done Comments Tdap 12/07/1971 Depression screening for age 12+ 1972 HIV for age 15-65 12/07/1975 Hepatitis C screening for ag e 18-79 1978 Pneumococcal series for age 50+ (1 of 2 - PCV) 12/07/1979 Tetanus booster 1980 Colonoscopy through age 75 2005 Lipids for age 45-75 2005 Zoster (shingles) series for age 50+ (1 of 2) 2010 RSV vaccine for adults or (1 - Risk 60-74 years 1-dose series) 2020 COVID-19 vaccine series ( - season) 2024 BMI (ht and wt on same day) for age 18+ 09/27/2024 09/27/2023, 08/10/2023 Influenza Vaccine (Season Ended) 2025 Hepatitis B series for 19+ Aged Out N o longer eligible based on patient's age to complete this topic Insurance [employer] Care Teams Silver Plater Relationship Specialty Start Date End Date Jorje Guerrero DO [address] [place] [id number] PCP - General Family Practice 06/15/23
--- OUTSIDE RECORDS SUMMARY | 2025-02-11 20:36 | XMS_ITS | Encounter Summary ---
Author Organization [facility] Address [address] [place] [address] Care Team Providers Care Coremaker Name Role Phone Leo Jama MD Primary Care Provider [phone] Reason for Visit * Reason Onset Date Comments Medication Question 01/10/2025 01/30/2025 PA RATHYROIDECTOMY / EXPLORATION OF PARATHYROID Noelle Gutierrez MD Encounter Details Date Type Department Care Team (Late st Contact Info) Description 01/10/2025 Telephone [facility]-Prepare Team [address] [place] [address] Neli Bejarano, diesel power mechanic Question (01/30/2025 PARATHYROIDECTOMY / EXPLORATION OF PARATHYROID Noelle Gutierrez MD) Social History Tobacco Use Types Packs/Day Years Used Date Smoking Tobacco: Former Cigarettes 0 12/01/2022 - 02/19/1976 Passive Smoke Exposure: Current Smokeless Tobacco: Never Alcohol Use Standard Drinks/Week Comments Not Currently 1.7 (1 standard drink = 0.6 oz p ure alcohol) [facility] Utilities Answer Date Recorded In the past 12 months has [employer], gas, oil, or water company threatened to [...] often do you attend chur ch or alevism services? Never 03/01/2024 Do you belong to [...] medical care, and heating? Somewhat hard 03/01/2024 [facility] [place] of Occupat ional Health - Occupational Stress [...] any time in the past 12 m [facility], were you homeless or living in a fci (including now)? 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 documented in this encounter Plan of Treatment Upcoming Encounters Date Type Department Care Team (Late st Contact Info) Description 03/01/2025 9:50 AM CDT Lab/Non-Imaging [facility] [address] [place] [address] 03/02/2025 10:30 AM CDT Nurse Visit [facility] [address] [place] [address] 03/02/2025 11:00 AM CDT Office Visit [facility] [address] [place] [address] Leo Jama MD [address] [place] [address] 03/14/2025 9:10 AM CDT Lab/Non-Imaging [facility] [place] [address] [place] [address] 03/21/2025 10:00 AM CDT Office Visit [facility] [address] [place] [address] Stevan Roberson MD [address] [place] [address] documented as of this encounter [...] documented as of this encounter Care Teams Coremaker Relationship Specialty Start Date End Date Leo Jama MD [address] [place] [address] PCP - General Internal Medicine 03/01/24 documented as of this encounter
--- OUTSIDE RECORDS SUMMARY | 2025-02-11 20:36 | XMS_ITS | Encounter Summary ---
Author Organization [facility] Address [address] [place] [address] Care Team Providers Care Graphics Editor Name Role Phone Leo Jama MD Primary Care Provider [phone] Encounter Details Date Type Department Care Team (Latest Contact Info) Description 01/08/2025 Travel Social History Tobacco Use Types Packs/Day Years Used Date Smoking Tobacco: Former Cigarettes 0 12/01/2022 - 02/19/1976 Passive Smoke Exposure: Current Smokeless Tobacco: Never Alcohol Use Standard Drinks/Week Comments Not Currently 1.7 (1 standard drink = 0.6 oz p ure alcohol) [facility] Utilities Answer Date Recorded In the past 12 months has [employer] electric, gas, oil, or water [employer] threatened to shut off services in your [...] often do you attend chur ch or uatsdin services? Never 03/01/2024 Do you belong to any clubs o r organizations such as jainism groups, unions, fraternal or athletic groups, or [...] medical care, and heating? 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 Gender Identity Not on file Sexual Orientation Not on file documented as of this encounter Plan of Treatment Upcoming Encounters Date Type Department Care Team (Late st Contact Info) Description 03/01/2025 9:50 AM CDT Lab/Non-Imaging [facility] [address] [place] [address] 03/02/2025 10:30 AM CDT Nurse Visit [facility] [address] [place] [address] 03/02/2025 11:00 AM CDT Office Visit [place] [address] [place] [address] Leo Jama MD [address] [facility] [address] 03/14/2025 9:10 AM CDT Lab/Non-Imaging [facility] [address] [place] [address] 03/21/2025 10:00 AM CDT Office Visit [facility] Endocr[facility]ology [address] [place] [phone] Stevan Roberson MD [address] [place] [address] [place] [phone] documented as of this encounter Goals Goal [...] documented as of this encounter Care Teams Graphics Editor Relationship Specialty Start Date End Date Leo Jama MD [address] [facility] [place] [address] PCP - General Internal Medicine 03/01/24 documented as of this encounter
--- OUTSIDE RECORDS SUMMARY | 2025-02-11 20:36 | XMS_ITS | Encounter Summary ---
Author Organization [facility], and Affiliates Address [address] [place] [address] Care Team Providers Care Briar Cutter Name Role Phone Leo Jama MD Primary Care Provider [phone] Reason for Visit * Reason Onset Date Comments Results 04/25/2024 Encounter Details Date Type Department Care Team (Late st Contact Info) Description 04/25/2024 Telephone [facility] [address] [place] [address] Leo Jama MD [address] [facility] [address] [place] [address] Results Social History Tobacco Use Types Packs/Day Years Used Date Smoking Tobacco: Former Cigarettes 0 12/01/2022 - 02/19/1976 Passive Smoke Exposure: Current Smokeless Tobacco: Never Alcohol Use Standard Drinks/Week Comments Yes 1.7 (1 standard drink = 0.6 oz p ure alcohol) [facility] Utilities Answer Date Recorded In the past 12 months has [employer], gas, oil, or water [employer] threatened to shut off services in your [...] week 03/01/2024 [facility] often do [facility] attend [facility] or yazidi services? Never 03/01/2024 Do you belong to any clubs o r organizations such as pentecostalism groups, unions, fraternal or athletic groups, or [...] medical care, and heating? Somewhat hard 03/01/2024 [facility] [place] of Occupat ional Health - [...] any time in the past 12 m [facility], were you homeless or living in a mcfp (including now)? 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 He will discuss lung cancer screening with his and call back. * Telephone Encounter - Fatuma Smith LPN - 04/25/2024 4:29 PM CDT Leo Jama MD 04/24/2024 2:07 PM CDT Back to Top Reviewed testing results. Abnormality on coloring room worker imaging redemonstrated on full CT scan of the chest.Corresponds to benign calcified granuloma. No particular reimaging studies needed for the granuloma. However, patient can still benefit from lung cancer screening with yearly CT scan of the chest. Nursing staff to notify patient of the above. documented in this encounter Plan of Treatment Upcoming Encounters Date Type Department Care Team (Late st Contact Info) Description 03/01/2025 9:50 AM CDT Lab/Non-Imaging [facility] [place] [address] 03/02/2025 10:30 AM CDT Nurse Visit [facility] [place] [address] [address] 03/02/2025 11:00 AM CDT Office Visit [facility] [address] [place] [address] Leo Jama MD [address] [place] [address] 03/14/2025 9:10 AM CDT Lab/Non-Imaging [facility] [address] [place] [address] 03/21/2025 10:00 AM CDT Office Visit [facility] Endocrinology [address] [place] [phone] Stevan Roberson MD [address] [place] [address] [place] [phone] documented as of this encounter Visit Diagnoses Not on filedocumented in this encounter Additional Health Concerns Assessment Noted Time PHQ-9 Depression Total Score: 0 03/22/20 11:01 AM CDT A fall risk assessment has been complete d for the patient 04/04/2024 7:08 AM CDT documented as of this encounter Care Teams Briar Cutter Relationship Specialty Start Date End Date Leo Jama MD [address] [place] [address] PCP - General Internal Medicine 03/01/24 documented as of this encounter
--- OUTSIDE RECORDS SUMMARY | 2025-02-11 20:36 | XMS_ITS | Encounter Summary ---
Author Organization [facility], and Affiliates Address [address] [place] [address] Care Team Providers Care Golf Club Facer Name Role Phone Leo Jama MD Primary Care Provider [phone] Reason for Visit * Reason Onset Date Comments Anticoagulation 01/04/2025 01/30/2025 PARATH YROIDECTOMY / EXPLORATION OF PARATHYROID Noelle Gutierrez MD Encounter Details Date Type Department Care Team (Late st Contact Info) Description 01/04/2025 Telephone [facility]-Prep[facility] Team [address] [place] [address] Verenice Barnes, RN Anticoagulation (01/30/2025 PARATHYROIDECTOMY / EXPLORATION OF PARATHYROID Noelle Gutierrez MD) Social History Tobacco Use Types Packs/Day Years Used Date Smoking Tobacco: Former Cigarettes 0 12/01/2022 - 02/19/1976 Passive Smoke Exposure: Current Smokeless Tobacco: Never Alcohol Use Standard Drinks/Week Comments Not Currently 1.7 (1 standard drink = 0.6 oz p ure alcohol) [facility] Utilities Answer Date Recorded In the past 12 months has [employer] gas, oil, or water company threatened to [...] any clubs o r organizations such as pentecostal groups, unions, fraternal or athletic groups, or [...] medical care, and heating? Somewhat hard 03/01/2024 [facility] [place] of Occupat ional Health - Occupational Stress [...] any time in the past 12 m [facility], were you homeless or living in a custodial (including now)? 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 Patient verbalized understanding and has no further questions at this time. * Telephone Encounter - Destiny Munson PA-C - 01/05/2025 12:10 PM CDT CHADS2 Vasc score is 4, I see no history of TIA/CVA and no mechanical valve. Okay to hold Eliquis temporarily for procedure/surgery and resume as soon as possible afterwards. Please advise patient low risk thromboembolic event when temporarily holding anticoagulation. Thank you * Telephone Encounter - Verenice Barnes RN - 01/04/2025 4:[address] Jasmin Gutierrez would like to perform a PARATHYROIDECTOMY / EXPLORATION OF PARATHYROID for your patient, [place], who is on Apixaban (Eliquis) therapy due to history of vascular stent in 2017and atrial fibrillation. Per [facility] STANDARD ANTICOAGULATION PROTOCOL, Apixaban (Eliquis) will be held 3 days prior to Surgery which is currently scheduled for 01/30/25. Estimated Creatinine Clearance: 84.2 mL/min (by C-G formula based on SCr of 1.08 mg/dL). If your patient cannot follow the above protocol, contact Dr. Jasmin Gutierrez to discuss. Please send a response back with agreement or disagreement via telephone encounter routed to [facility] within 48 hrs of receipt of this message. [] Agree with anticoagulation plan [] Disagree with anticoagulation plan Signed Printed Name Marck Prepare Anticoagulation RN [address] [place] [id number] Attn: SWATHI RN documented in this encounter Plan of Treatment Upcoming Encounters Date Type Department Care Team (Late st Contact Info) Description 03/01/2025 9:50 AM CDT Lab/Non-Imaging [facility] [address] [place] [address] 03/02/2025 10:30 AM CDT Nurse Visit [place] [address] [place] [address] 03/02/2025 11:00 AM CDT Office Visit [facility] [address] [place] [address] Leo Jama MD [address] [place] [address] 03/14/2025 9:10 AM CDT Lab/Non-Imaging [facility] [address] [place] [address] 03/21/2025 10:00 AM CDT Office Visit [facility] Endocrinology [address] [place] [address] Stevan Roberson MD [address] [place] [phone] documented as of this encounter Goals Goal [...] documented as of this encounter Care Teams Golf Club Facer Relationship Specialty Start Date End Date Leo Jama MD [address] [place] [address] PCP - General Internal Medicine 03/01/24 documented as of this encounter
--- OUTSIDE RECORDS SUMMARY | 2025-02-11 20:36 | XMS_ITS | Encounter Summary ---
Author Organization [facility], and Affiliates Address [address] [place] [address] Care Team Providers Care Brick Kiln Worker Name Role Phone Leo Jama MD Primary Care Provider [phone] Reason for Visit * Reason Onset Date Comments Patient Update 01/04/2025 Encounter Details Date Type Department Care Team (Late st Contact Info) Description 01/04/2025 Telephone [facility] [email or web address] [place] [address] Stevan Roberson MD [address] [place] [address] [place] [phone] Patient Update Social History Tobacco Use Types Packs/Day Years Used Date Smoking Tobacco: Former Cigarettes 0 12/01/2022 - 02/19/1976 Passive Smoke Exposure: Current Smokeless Tobacco: Never Alcohol Use Standard Drinks/Week Comments Not Currently 1.7 (1 standard drink = 0.6 oz p ure alcohol) [facility] Utilities Answer Date Recorded In the past 12 months has [employer] electric, gas, oil, or water company threatened [...] week 03/01/2024 How often do you attend [facility] or anabaptism services? Never 03/01/2024 Do you belong to any clubs o r organizations such as anabaptism groups, unions, fraternal or athletic groups, or [...] medical care, and heating? 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 Lab orders entered for [facility] pth vit d. Patient verbalized understanding. No other questions. Future Appointments Date Time Provider Department Center 02[facility] 10[facility]10 [facility] [place] [facility] 02/23/2025 9:00 AM Stevan Roberson MD [facility] 04/02/2025 10:20 [facility] [place] 04/06/2025 10:00 AM Stevan Roberson MD [facility] * Telephone Encounter - Spencer Ventura RN - 01/05/2025 11:43 AM CDT RN left a message for patient to return call * Telephone Encounter - Candy Lisa - 01/04/2025 2:22 PM CDT Patient called to inform Dr. Roberson he has his surgery on 01/30 this month. Patient wondering if he needs an appointment with Dr. Roberson before or after that. documented in this encounter Plan of Treatment Upcoming Encounters Date Type Department Care Team (Late st Contact Info) Description 03/01/2025 9:50 AM CDT Lab/Non-Imaging [facility] [address] [place] [address] 03/02/2025 10:30 AM CDT Nurse Visit [facility] [address] [place] [address] 03/02/2025 11:00 AM CDT Office Visit [facility] [address] [place] [address] Leo Jama MD [address] [place] [address] 03/14/2025 9:10 AM CDT Lab/Non-Imaging [facility] [address] [place] [address] 03/21/2025 10:00 AM CDT Office Visit [facility] Endocrinology [address] [place] [phone] Stevan Roberson MD [address] [place] [address] [place] [phone] documented as of this encounter Goals Goal Patient Goal Type Associated Problems Recent Progress Patient-Stated? Author Blood Pressure < 140/90 Blood Pressure 124/66(2024 2:28 PM CDT) No Leo Jama MD hdl > 40 Result Component 54(03/01/2024 9:54 AM CDT) No Leo Jama MD documented as of this encounter Results * VITAMIN D 25 HYDROXY TOTAL ([facility] ONLY) (01/08/2025 9:52 AM CDT) 25-HYDROXY D TOTAL 40.2 30.0 - 100.0 ng/ml 01/08/2025 3:46 PM CDT [facility] Blood Venipuncture / Unknown 01/08/2025 9:52 AM CDT 01/08/2025 9:[address] [facility] - 01/08/2025 3:46 PM CDT The [...] ORDERABLES Final Res ult Performing Organization Address [facility] Phone Number [address] [phone] * (ABNORMAL) PTH INTACT (01/08/2025 9:52 AM CDT) [facility] PTH INTACT 71.0(H) 15.0 - 65.0 pg/mL 01/08/2025 3:46 PM CDT [facility] Blood Venipuncture / Unknown 01/08/2025 9:52 AM CDT 01/08/2025 9:[address] [facility] - 01/08/2025 3:46 PM CDT Samples [...] ORDERABLES Final Res ult Performing Organization Address [facility] Phone Number [address] [phone] * (ABNORMAL) PANEL, COMPREHENSIVE METABOLIC (01/08/2025 9:52 AM CDT) [facility] GLUCOSE 164(H) 70 - 100 mg/dL 01/08/2025 10:58 AM CDT [facility] UREA NITROGEN 14 9 - 23 mg/dL 01/08/2025 10:58 AM T [facility] CREATININE 1.09 0.73 - 1.18 mg/dL 01/08/2025 10:58 AM [facility] eGFR 76 >=60 mL/Min/1. 73 sqm 01/08/2025 10:58 AM [facility] Comment:Calculation based on the Chronic Kidney Disease Epidemiology Collaboration (CKD-EPI) equation refit without adjustment for race. SODIUM 140 136 - 145 mmol/L (mEq/L) 01/08/2025 10:58 AM [facility] POTASSIUM 5.1 3.5 - 5.1 mmol/L (mEq/L) 01/08/2025 10:58 AM [facility] CHLORIDE 113(H) 101 - 112 mmol/L (mEq/L) 01/08/2025 10:58 AM [facility] TOTAL CO2 26 20 - 31 mmol/L (mEq/L) 01/08/2025 10:58 AM [facility] CALCIUM 11.6(H) 8.9 - 10.7 mg/dL 01/08/2025 10:58 AM [facility] Comment:Effective 10-09-24, p lease note reference range changes. TOTAL PROTEIN 6.7 5.7 - 8.2 g/dL 01/08/2025 10:58 AM T [facility] ALBUMIN 4.4 3.9 - 5.1 g/dL 01/08/2025 10:58 AM [facility] Comment:Effective 10-09-24, p lease note reference range changes. BILIRUBIN, TOTAL 0.6 0.2 - 1.1 mg/dL 01/08/2025 10:58 AM CDT [facility] Comment:Effective 10-09-24, p lease note reference range changes. SGOT/AST 36 <39 U/L 01/08/2025 10:58 AM CDT [facility] Comment:Effective 10-09-24, p lease note reference range changes. SGPT/ALT 61(H) 10 - 52 U/L 01/08/2025 10:58 AM CDT [facility] Comment:Effective 10-09-24, p lease note reference range changes. ALK PHOSPHATASE 77 43 - 131 U/L 01/08/2025 10:58 AM CDT [facility] Comment:Effective 10-09-24, p lease note reference range changes. Blood Venipuncture / Unknown 01/08/2025 9:52 AM CDT 01/08/2025 9:52 AM CDT Stevan Roberson MD LAB BLOOD ORDERABLES Final Res ult [facility] [address] [place] [address] documented in this encounter Visit Diagnoses Diagnosis Hyperparathyroidism- Primary Hyperparathyroidism, unspecified Hypercalcemia Vitamin D deficiency Unspecified vitamin D deficiency documented in this encounter Additional Health Concerns Assessment Noted Time PHQ-9 Depression Total Score: 0 03/22/20 11:01 AM CDT A fall risk assessment has been complete d for the patient 04/04/2024 7:08 AM CDT documented as of this encounter Care Teams Brick Kiln Worker Relationship Specialty Start Date End Date Leo Jama MD [address] [place], [place] [id number] PCP - General Internal Medicine 03/01/24 documented as of this encounter
--- OUTSIDE RECORDS SUMMARY | 2025-02-11 20:36 | XMS_ITS | Clinical Summary ---
Author Organization [facility] and Count Includes [facility] [employer] Address [address] [place] [address] Care Team Providers Care Pullman Clerk Name Role Phone Leo Jama MD Primary Care Provider [phone] Source Comments If you need additional information that is not available on Care Everywhere, please contact our Medical Records Department during business hours (Wednesday - Wednesday, 8 am - 5 pm) at . During nonbusiness hours, please contact our Trauma and Emergency Center at .[facility] Social History Tobacco Use Types Packs/Day Years Used Date Smoking Tobacco: Never Assessed Sex and Gender Information Value Date Recorded Sex Assigned at Not on file Legal Sex Male 10:57 AM CDT Gender Identity Not on file Sexual Orientation Not on file Last Filed Vital Signs Vital Sign Reading Time Taken Comments Blood Pressure 144/80 03/22/2024 11:07 AM CDT Pulse 61 03/22/2024 10:58 AM CDT Temperature 36.5 C (97.7 F) 03/22/2024 10:58 AM CDT Respiratory Rate 16 02/24/2024 1:13 PM CDT Oxygen Saturation - - Inhaled Oxygen Concentration - - Weight 92.7 kg (204 lb 7 oz) 03/22/2024 10:58 AM CDT Height 174 cm (5' 8.5) 03/01/2024 4:02 PM CDT Body Mass Index 30.63 03/01/2024 4:02 PM CDT Plan of Treatment Health Maintenance Due Date Last Done Comments HEPATITIS C SCREENING 1960 DEPRESSION/ANXIETY PHQ4 1972 LIPID SCREEN 1978 WELLNESS VISIT 1978 DTaP/Tdap/Td Vaccine (1 - Tdap) 12/07/1979 PERTUSSIS 12/07/1979 Pneumococcal Vaccine: 50+ Years (1 of 2 - PCV) 12/07/1979 COLONOSCOPY 2005 DIABETES SCREENING 2005 04/04/2024, 03/01/2024, 03/01/2024 SHINGLES VACCINE (SHINGRIX) (1 of 2) 2010 RSV Vaccines (1 - Risk 60-74 years 1-dose series) 2020 COVID-19 Vaccine (1 - 2023-2 5 season) 2024 Influenza Vaccine (Season Ended) 2025 HPV Vaccine Aged Out No longer eligi ble based on patient's age to complete this topic Hepatitis B Vaccine Aged Out No longe r eligible based on patient's age to complete this topic POLIO (IPV) Vaccine Aged Out No longe r eligible based on patient's age to complete this topic Procedures Procedure Name Priority Date/Time Associated Diagnosis Comments LAB BASIC METABOLIC PANEL STAT 04/04/2024 7:14 AM CDT Other persistent atrial fibrillation (*) Typical atrial flutter (*) from Last 3 Months or Most Recently Relevant to Health Maintenance Results * (ABNORMAL) Lab Basic Metabolic Panel (04/04/2024 7:14 AM CDT) GLUCOSE 219(H) 70 - 100 mg/dL 04/04/2024 7:54 AM T [facility] BUN 22 8 - 23 mg/dL 04/04/2024 7:54 AM [facility] CREATININE 1.15 0.70 - 1.20 mg/dL 04/04/2024 7:54 AM [facility] ESTIMATED GFR 72 >=60 mL/Min/1. 73 sqm 04/04/2024 7:54 AM [facility] Comment:Calculation based on the Chronic Kidney Disease Epidemiology Collaboration (CKD-EPI) equation refit without adjustment for race. SODIUM 138 136 - 145 mmol/L (mEq/L) 04/04/2024 7:54 AM [facility] POTASSIUM 4.6 3.5 - 5.1 mmol/L (mEq/L) 04/04/2024 7:54 AM T [facility] CHLORIDE 105 98 - 107 mmol/L (mEq/L) 04/04/2024 7:54 AM T [facility] CARBON DIOXIDE-TOTAL 22 22 - 29 mmol/L (mEq/L) 04/04/2024 7:54 AM T [facility] CALCIUM 10.7(H) 8.8 - 10.2 mg/dL 04/04/2024 7:54 AM T [facility] ANION GAP 11.1 3.0 - 12.0 04/04/2024 7:54 AM [facility] Blood 04/04/2024 7:14 AM CDT 04/04/2024 7:20 AM CDT us Chen Gibson MD CHEMISTRY ORDERABLES Final Result BLN CONVERSIONS [facility] [address] [facility] [address] [address] [place] [address] from Last 3 Months or Most Recently Relevant to Health Maintenance Advance Directives For more information, please contact: [phone] [email or web address] Documents on File Type Date Recorded Patient Line Controller Expl anation Power of Geriatric Care Manager for Health Care 03/20/2024 8:54 AM POA [phone] Care Teams Pullman Clerk Relationship Specialty Start Date End Date Leo Jama MD [address] [facility] [address] [place] [address] PCP - General INTERNAL MEDICINE 03/01/24
--- OUTSIDE RECORDS SUMMARY | 2025-02-11 20:36 | XMS_ITS | Clinical Summary ---
Author Organization [facility] Address [address] [address] Phone Care Team Providers Care Atmospheric Technician Name Role Phone Jorje Guerrero DO Primary Care Provider [phone] Nancy Boothe RN Unavailable Unavailabl e Allergies Active Allergy Reactions Criticality Noted Date Comments Penicillins Anaphylaxis High 04/08/2022 Medications Multiple Vitamin (multivitamin) tablet Take 1 Tablet by mouth one time a day. Active [place]-3 Fatty Acids ([place]-3 Fish Oil) 1200 MG capsule Take 1 Capsule by mouth one time a day. Active Cholecalciferol (Vitamin D) 50 MCG (2000 UT) capsule Take 1 Capsule by mouth one time a day. 1 unit of Vitamin D equals 0.025 mcg of Vitamin D Active amiodarone (Pacerone) 200 MG tablet Take 1 Tablet by mouth one time a day. 4 Active apixaban (Eliquis) 5 MG tabletIndications :Chronic atrial fibrillation (HCC) Take 1 Tablet by mouth two times a day. 90 Tablet 3 4 Active atorvaSTATin (Lipitor) 80 MG tabletIndications :History of OR (myocardial infarction) Take 1 Tablet by mouth at bedtime. 90 Tablet 2 4 Active carvedilol (Coreg) 6.25 MG tabletIndications :Essential hypertension Take 1 Tablet by mouth two times a day. 90 Tablet 3 4 Active glipiZIDE (Glucotrol) 10 MG tabletIndications :Type 2 diabetes mellitus without complication, without long-term current use of insulin (HCC) Take 1 Tablet by mouth one time a day. 90 Tablet 2 4 Active losartan (Cozaar) 100 MG tabletIndications :Essential hypertension Take 1 Tablet by mouth one time a day. 90 Tablet 3 4 Active magnesium oxide (Mag-Ox) 400 MG tabletIndications :Hypomagnesemia Take 2 Tablets by mouth one time a day. 90 Tablet 3 4 Active potassium citrate (Urocit-K) 10 MEQ (1080 MG) tabletIndications :Essential hypertension Take 1 Tablet by mouth three times a day. 270 Tablet 1 4 Active traZODone (Desyrel) 150 MG tabletIndications :Sleep disturbance Take 1 Tablet by mouth at bedtime. 90 Tablet 3 4 Active Active Problems Patient Care Coordination No te Formatting of this note is d ifferent from the original. [place] Registry Review Registries Patient is Active On: Diabetes: Current Diabetes status: A1C < 8.0, last 180 days: Meeting Lab Results Component Value Date HGA1C 6.5 06/08/2023 BP < 140/90: Meeting BP Readings from Last 2 Encounters: 07/15/23 117/58 06/30/23 122/81 Taking Statin: Meeting Current Tobacco Use?: NOT Meeting If IVD, taking ASA: Meeting GFR: Lab Results Component Value Date GFR >60 06/08/2023 Last Diabetic Eye Exam: Next Office Visit Due: 10/2023 Colorectal Cancer Screening Last Documentation/Discussion: Exclusions: Next CRC Screening Due: Last Health Care Maintenance Exam: 06/23/2022 Barriers to Care: -off metformin as of 07/17/2023 due to severe nausea and vomiting, due to assess diabetes in 3 months Current Plan: No action needed right now Problem Noted Date Diagnosed Date Atrial flutter 10/24/2023 Chronic GERD 07/15/2023 Hiatal hernia 07/15/2023 Bilious vomiting with nausea 07/15/2023 Esophageal dysphagia 07/15/2023 Fatty liver 07/15/2023 Other specified glaucoma 06/30/2023 History of OR (myocardial infarction) 06/23/2022 Overview (06/30/2023): 2017 Sleep disturbance 06/23/2022 Atherosclerotic heart diseas e of [place] coronary artery without angina pectoris 04/08/2022 Hyperlipidemia 04/08/2022 Primary hypertension 04/08/2022 08/18/2023 Insomnia 04/08/2022 08/18/2023 Type 2 diabetes mellitus without complication 08/18/2023 Overview (08/18/2023): Last Assessment & Plan: Achieve follow up Resolved Problems Problem Noted Date Diagnosed Date Resolved Date Chronic atrial fibrillation 06/30/2023 10/24/2023 Immunizations Immunization Administration Dates Next Due MMR 02/12/1992 Rubella 01/09/1977 TD >7yrs With Preservative 11/18/2012 Surgical History Surgery Date Site/Laterality Comments COLONOSCOPY 05/07/2021 done in [place], [place] UPPER GASTROINTESTINAL ENDOSCOPY 06/18/2023 N/A Procedure: ESOPHAGOGASTRODUODENOSCOPY DIAGNOSTIC; Surgeon: Sandeep Bradley MD; Location: [facility] ENDOSCOPY COLONOSCOPY 06/18/2023 N/A Procedure: COLONOSCOPY DIAGNOSTIC; Surgeon: Sandeep Bradley MD; Location: [facility] ENDOSCOPY 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, 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;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 Medical History Medical History Date Comments Diabetes mellitus (HCC) Atherosclerotic heart diseas e of [place] coronary artery without angina pectoris 04/08/2022 Hyperlipidemia 04/08/2022 Insomnia 04/08/2022 Essential (primary) hypertension 04/08/2022 GERD (gastroesophageal reflux disease) Hx of adenomatous colonic polyps 05/07/2021 Chronic atrial fibrillation (HCC) 06/08/2023 Family History Medical History Relation Comments Diabetes Father GI Disease Negative Family Hx Relation Status Comments Father Alive Mother Alive Social History Tobacco Use Types Packs/Day Years Used Date Smoking Tobacco: Every Day Cigarettes 0.5 40 Passive Smoke Exposure: Past Smokeless Tobacco: Never Alcohol Use Standard Drinks/Week Comments Yes 3 (1 standard drink = 0.6 oz pur e alcohol) AUDIT-C Answer Date Recorded Q1: How often do you have a drink containing alc ohol? Monthly or less 10/24/2023 Q2: How many drinks containi ng alcohol do you have on a typical day when you are drinking? 1 or 2 10/24/2023 Q3: How often do you have si x or more drinks on one occasion? Less than monthly 10/24/2023 Overall Financial Resource Strain (CARDIA) Answe r Date Recorded How hard is it for you to pa y for the very basics like food, housing, medical care, and heating? Not hard at all 10/24/2023 PHQ-2 Answer Date Recorded PHQ-2 Total 0 11/01/2023 Hunger Vital Sign Answer Date Recorded Within the past 12 months, y ou worried that your food would run out before you got the money to buy more. Never true 10/24/19 24 Within the past 12 months, t he food you bought just didn't last and you didn't have money to get more. Never true 10/24/2023 PRAPARE - Transportation Answer Date Re corded In the past 12 months, has l ack of transportation kept you from medical appointments or from getting medications? No 10/07 In the past 12 months, has l ack of transportation kept you from meetings, work, or from getting things needed for daily living? No 10/24/2023 EH IP Housing Domain Answer Date Record ed Retired - What is your livin g situation today? I have a steady place to live 10/24/2023 EH IP Custom Utilities ([employer]) Answer Date Recorded How hard is it for you to pa y for the very basics like food, housing, medical care, and heating? 5 10/24/2023 IP Custom IPV Answer Date Recorded Do you feel UNSAFE in any of your personal relationships with your family members or any other acquaintances? No 2023 Sex and Gender Information Value Date Recorded Sex Assigned at Male 06/08/2023 9:12 PM CDT Legal Sex Male 9:31 AM CDT Gender Identity Male 06/08/2023 9:12 PM CDT Sexual Orientation Not on file Obstetrics History Last Filed Vital Signs Vital Sign Reading Time Taken Comments Blood Pressure 124/78 11/01/2023 10:04 AM CONTINUOUS PROCESS MACHINE OPERATOR Pulse 60 11/01/2023 10:04 AM CONTINUOUS PROCESS MACHINE OPERATOR Temperature 35.6 C (96.1 F) 11/01/2023 10:04 AM CONTINUOUS PROCESS MACHINE OPERATOR Respiratory Rate 16 11/01/2023 10:04 AM CONTINUOUS PROCESS MACHINE OPERATOR Oxygen Saturation 97% 11/01/2023 10:04 AM CONTINUOUS PROCESS MACHINE OPERATOR Inhaled Oxygen Concentration - - Weight 86.6 kg (191 lb) 11/01/2023 10:04 AM CONTINUOUS PROCESS MACHINE OPERATOR Height 177.8 cm (5' 10) 10/24/2023 6:59 PM CONTINUOUS PROCESS MACHINE OPERATOR Body Mass Index 27.41 10/24/2023 6:59 PM CONTINUOUS PROCESS MACHINE OPERATOR Plan of Treatment Health Maintenance Due Date Last Done Comments CT Colonography 1960 Cologuard 1960 FIT/FOBT 1960 Sigmoidoscopy 1960 DIABETIC EYE EXAM 1978 PERTUSSIS (Standing Order) 12/07/1979 Pneumococcal Vaccine: 50+ yrs (Standing Order) (1 of 2 - PCV) 12/07/1979 Shingrix (Zoster recombinant) vaccine (Standing Order) (1 of 2) 2010 RSV Vaccination (60+ yrs) (Abrysvo/Arexvy) (1 - Risk 60-74 years 1-dose series) 2020 TETANUS (Standing Order) 11/18/2022 11/18/2012 DIABETES HGB A1C Q6 MONTHS (Standing Order) 12/08/2023 06/08/2023, 03/10/2023, 12/17/2022, Additional history exists DIABETES MICROALBUMIN Q1 YEAR (Standing Order) 01/30/2025 03/01/2024, 06/08/2023, 06/23/2022 DIABETES SERUM CREATININE Q1 YEAR (Standing Order) 03/01/2025 03/01/2024, 11/01/2023, 10/25/2023, Additional history exists COLONOSCOPY Q 5 YRS 06/18/2028 06/18/2023 Diab/Vasc Lipid Profile Q5 years (Standing Order) 08/20/2028 08/20/2023, 06/08/2023, 06/23/2022 Colonoscopy 06/18/2033 06/18/2023 Colorectal Cancer Screening 06/18/2033 HPV Vaccine (Standing Order) Aged Out No longer eligible based on patient's age to complete this topic Hepatitis B Vaccine (Standing Order) Aged Out No longer eligible based on patient's age to complete this topic Goals Goal Patient Goal Type Associated Problems Recent Progress Patient-Stated? Author Check glucoses General No Nancy Boothe, RN Note: Will use CGM for the next 2 weeks to check blood sugars. Procedures Procedure Name Priority Date/Time Associated Diagnosis Comments BASIC METABOLIC PANEL Routine 11/01/2023 10:31 AM CONTINUOUS PROCESS MACHINE OPERATOR Hyponatremia LIPID PROFILE Routine 08/20/2023 10:42 AM CONTINUOUS PROCESS MACHINE OPERATOR MICROALBUMIN/CREATI NINE RATIO, URINE STAT 06/08/2023 8:15 PM CDT Type 2 diabetes mellitus without complication, unspecified whether circuit manager insulin use (HCC) Hypotension, unspecified hypotension type HEMOGLOBIN A1C STAT 06/08/2023 6:34 PM CDT Type 2 diabetes mellitus without complication, unspecified whether detention insulin use (HCC) Hypotension, unspecified hypotension type from Last 3 Months or Most Recently Relevant to Health Maintenance Results * (ABNORMAL) BASIC METABOLIC PANEL (11/01/2023 10:31 AM CONTINUOUS PROCESS MACHINE OPERATOR) Sodium 134(L) 135 - 144 mmol/L 11/01/2023 3:48 PM [facility] Potassium 4.8 3.4 - 5.1 mmol/L 11/01/2023 3:48 PM [facility] Chloride 105 98 - 107 mmol/L 11/01/2023 3:48 PM [facility] Carbon Dioxide 24 22 - 30 mmol/L 11/01/2023 3:48 PM [facility] Calcium 11.3(H) 8.6 - 10.3 mg/dL 11/01/2023 3:48 PM [facility] Glucose 210(H) 74 - 100 mg/dL 11/01/2023 3:48 PM [facility] Blood Urea nitrogen 15 9 - 20 mg/dL 11/01/2023 3:48 PM [facility] Creatinine 1.00 0.66 - 1.25 mg/dL 11/01/2023 3:48 PM [facility] Anion Gap 5 5 - 15 mmol/L 11/01/2023 3:48 PM CONTINUOUS PROCESS MACHINE OPERATOR [facility] Glomerular Filtration Rate >60 >60 mL/min/1.7 3 m*2 11/01/2023 3:48 PM [facility] Comment:This calculation use s CKD-EPI 2020 equation; it has not been validated in women. Blood BLOOD SPECIMEN / Unknown Venipuncture / Unknown 11/01/2023 10:31 AM CONTINUOUS PROCESS MACHINE OPERATOR 11/01/2023 10:31 AM CONTINUOUS PROCESS MACHINE OPERATOR us Lydia Aldana PLANISHING HAMMER OPERATOR EC CHEMISTRY ORDERABLES Fi nal Result [facility] [address] [phone] * LIPID PANEL (08/20/2023 10:42 AM CONTINUOUS PROCESS MACHINE OPERATOR) Cholesterol 154 100 - 200 mg/dL 08/20/2023 11:20 AM [facility] Triglycerides 105 <150 mg/dL 08/20/2023 11:20 AM [facility] HDL Cholesterol, Measured 49 35 - 60 mg/dL 08/20/2023 11:20 AM [facility] Non-HDL Cholesterol 105 <130 mg/dL 08/20/2023 11:20 AM [facility] LDL Cholesterol, Calculated 84 <130 mg/dL 08/20/2023 11:20 AM [facility] Blood BLOOD SPECIMEN / Unknown Venipuncture / Unknown 08/20/2023 10:42 AM CONTINUOUS PROCESS MACHINE OPERATOR 08/20/2023 11:04 AM CONTINUOUS PROCESS MACHINE OPERATOR Narrative [facility] - 08/20/2023 11:20 AM CONTINUOUS PROCESS MACHINE OPERATOR Cholesterol Reference Ranges (Adults >20 years) Desirable: <200 mg/dL Borderline High: 200-239 mg/dL High Risk: >240 mg/dL Cholesterol Reference Ranges (Children <20 years) Desirable: <169 mg/dL Borderline High: 170-199 md/dL High Risk: >200 mg/dL Triglyceride Reference Ranges Desirable: <150 mg/dL Borderline High: 150-199 mg/dL High Risk: >200 mg/dL NON-HDL Reference Ranges Desirable: < 130 mg/dL Near Desirable: 130-159 mg/dL Borderline High: 160-189 mg/dL High Risk: 190-219 mg/dL Very high Risk: >/=220 mg/dL us Isael French PA-C EC CHEMISTRY ORDERABLES ABN Final Result Performing Organization Address [facility] de Phone Number [facility] [address] [phone] * (ABNORMAL) MICROALBUMIN/CREATININE RATIO, URINE (06/08/2023 8:15 PM CDT) Urine Creatinine, Random 170.4 No Established Reference Range mg/dL 06/09/2023 11:09 AM CDT [facility] Urine Microalbumin 37.3(H) <=16.7 mg/L 06/09/2023 11:09 AM T [facility] Urine Microalbumin/Cre atinine Ratio 22 <30 mg/g creat 06/09/2023 11:09 AM CDT [facility] Urine [place] URINE SPECIMEN OBTAINED BY CLEAN CATCH PROCEDURE / Unknown Non-blood collection / Unknown 06/08/2023 8:15 PM CDT 06/08/2023 8:19 PM CDT us Jorje Guerrero DO EC URINE ORDERABLES Final R esult Performing Organization Address City/[facility] Co de Phone Number [facility] [address] [phone] * (ABNORMAL) HEMOGLOBIN A1C (06/08/2023 6:34 PM CDT) Hemoglobin A1C 6.5(H) 4.8 - 5.6 % 06/09/2023 4:37 PM CDT [facility] Blood BLOOD SPECIMEN / Unknown Venipuncture / Unknown 06/08/2023 6:34 PM CDT 06/09/2023 9:05 AM CDT Narrative [facility] - 06/09/2023 4:37 PM CDT 5.7-6.4%: Increased risk for diabetes 6.5% or higher: Diagnostic for diabetes For diabetic patients, A1C goals should be discussed with clinician. Jorje Guerrero DO EC CHEMISTRY ORDERABLES ABN Final Result [facility] [address] [place] [address] from Last 3 Months or Most Recently Relevant to Health Maintenance Advance Directives For more information, please contact: [phone] * Full Code (Latest Code Status on File) Date Activated Date Inactivated Comments 10/24/2023 6:57 PM 10/26/2023 6:56 PM * Full Code Date Activated Date Inactivated Comments 10/20/2023 11:52 AM 10/20/2023 6:43 PM * Full Code Date Activated Date Inactivated Comments 08/27/2023 8:43 AM 08/27/2023 3:50 PM * Full Code/Unaddressed Date Activated Date Inactivated Comments 08/23/2023 10:31 AM 08/23/2023 7:28 PM * Full Code Date Activated Date Inactivated Comments 08/20/2023 9:47 AM 08/20/2023 2:51 PM Care Teams Atmospheric Technician Relationship Specialty Start Date End Date Jorje Guerrero DO [address] [place] [id number] PCP - General Family Medicine 10/12/23 Nancy Boothe, RN transport corps officer Medicine 01/01/23
--- OUTSIDE RECORDS SUMMARY | 2025-02-11 20:36 | XMS_ITS | Encounter Summary ---
Author Organization [facility] Address [address] [place] [address] Care Team Providers Care Legal Manager Name Role Phone Leo Jama MD Primary Care Provider [phone] Encounter Details Date Type Department Care Team (Latest Contact Info) Description 02/08/2025 Travel Social History Tobacco Use Types Packs/Day Years Used Date Smoking Tobacco: Former Cigarettes 0 12/01/2022 - 02/19/1976 Passive Smoke Exposure: Never Smokeless Tobacco: Never Alcohol Use Standard Drinks/Week Comments Not Currently 0 (1 standard drink = 0.6 oz pur e alcohol) [facility] Utilities Answer Date Recorded In the [...] often do you attend chur ch or restorationist services? Never 03/01/2024 Do you belong to any clubs o r organizations such as congregational groups, unions, fraternal or athletic groups, or [...] medical care, and heating? Somewhat hard 03/01/2024 [facility] of Occupat ional Health - Occupational Stress [...] time in the past 12 m [facility], were you homeless or living in a chcf (including now)? 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 [address] [place] [address] 03/02/2025 11:00 AM CDT Office Visit [place] [address] [place] [address] Leo Jama MD [address] [place] [place] [address] 03/14/2025 9:10 AM CDT Lab/Non-Imaging [facility] [address] [place] [address] 03/21/2025 10:00 AM CDT Office Visit [facility] [address] [place] [address] [phone] Stevan Roberson MD [address] [place] [address] [place] [address] [phone] documented as of this encounter Goals Goal [...] documented as of this encounter Care Teams Legal Manager Relationship Specialty Start Date End Date Leo Jama MD [address] [place] [address] PCP - General Internal Medicine 03/01/24 documented as of this encounter
[2025-02-11] MEDS: TETANUS/DIPHTH/PERTUSSIS 0.5 ML SYRINGE IM (20:37)
== END 2025-02-11 20:44 | disposition home or self-care (01) ==
PROVIDERS: Emergency Provider Emergency Medicine
DX: S61.011A Laceration without foreign body of right thumb without damage to nail, initial encounter (principal); W26.8XXA Contact with other sharp object(s), not elsewhere classified, initial encounter
CPT/HCPCS: 12001; 90471; 90715; 99282; 99283